=== PATIENT | female | born 1945 | race Caucasian/White ===

== ENCOUNTER 2016-11-08 11:29 | Outpatient (CLI) ==
[2016-04-26 08:44] VITALS: BMI 36.6
[2016-11-08 13:51] LABS: BASOPHILS # (AUTO) 0.1 K/uL (0-0.2); BASOPHILS % (AUTO) 1.4 % (0.0-3.0); EOSINOPHILS # (AUTO) 0.1 K/ul (0.0-0.7); EOSINOPHILS % (AUTO) 3.8 % (0.0-7.0); HEMATOCRIT 36.1 % (37.0-47.0); HEMOGLOBIN 11.6 g/dl (12.0-16.0); IMMATURE GRANULOCYTE % (AUTO) 0.3 % (0.0-5.0); LYMPHOCYTES # (AUTO) 1.1 K/uL (0.60-3.4); LYMPHOCYTES % (AUTO) 29.1 (10.0-50.0); MEAN CORPUSCULAR HEMOGLOBIN 27.8 pg (27.0-31.0); MEAN CORPUSCULAR HGB CONC 32.1 (31.8-35.4); MEAN CORPUSCULAR VOLUME 86.6 fl (81.0-99.0); MONOCYTES # (AUTO) 0.5 K/uL (0.4-2.0); MONOCYTES % (AUTO) 12.2 (0-10); NEUTROPHILS % (AUTO) 53.2; PLATELET COUNT 200 10^3/uL (140-440); RED BLOOD COUNT 4.17 10^6/ul (4.20-5.40); WHITE BLOOD COUNT 3.68 K/ul (4.6-10.2)
[2016-11-08 14:23] LABS: ALBUMIN 3.8 g/dL (3.4-5.0); ALBUMIN/GLOBULIN RATIO 0.9; ANION GAP 16.5; BILIRUBIN,TOTAL 0.56 mg/dL (0.00-1.20); BUN/CREATININE RATIO 27.77; CALCIUM 10.5 mg/dL (8.2-10.2); CHOL/HDL RATIO 3.3 (4.5-5.5); CREATININE 1.8 mg/dL (0.60-1.30); POTASSIUM 4.5 mmol/L (3.5-5.10)
== END 2016-11-08 11:30 | disposition home or self-care (01) ==
LOC: LAB 11:29
PROVIDERS: ATTEND Emergency Medicine
DX: E11.9 Type 2 diabetes mellitus without complications (principal); G45.9 Transient cerebral ischemic attack, unspecified; I48.1 Persistent atrial fibrillation
CPT/HCPCS: 36415; 80053; 80061; 83036; 84443; 85025

== ENCOUNTER 2017-02-14 08:20 | Outpatient (CLI) | payer OTHER ==
[2016-04-26 08:44] VITALS: BMI 36.6
[2017-02-14 08:36] LABS: BASOPHILS % (AUTO) 0.9 % (0.0-3.0); EOSINOPHILS # (AUTO) 0.1 K/ul (0.0-0.7); EOSINOPHILS % (AUTO) 2.7 % (0.0-7.0); HEMATOCRIT 34.2 % (37.0-47.0); HEMOGLOBIN 11.3 g/dl (12.0-16.0); IMMATURE GRANULOCYTE % (AUTO) 0.2 % (0.0-5.0); LYMPHOCYTES # (AUTO) 1.2 K/uL (0.60-3.4); LYMPHOCYTES % (AUTO) 27.5 (10.0-50.0); MEAN CORPUSCULAR HEMOGLOBIN 27.8 pg (27.0-31.0); MONOCYTES # (AUTO) 0.4 K/uL (0.4-2.0); MONOCYTES % (AUTO) 9.8 (0-10); NEUTROPHILS # (AUTO) 2.6 K/ul (2.0-6.9); NEUTROPHILS % (AUTO) 58.9; PLATELET COUNT 174 10^3/uL (140-440); RED BLOOD COUNT 4.07 10^6/ul (4.20-5.40); WHITE BLOOD COUNT 4.48 K/ul (4.6-10.2)
[2017-02-14 09:21] LABS: CHOL/HDL RATIO 3.8 (4.5-5.5)
== END 2017-02-14 08:21 | disposition home or self-care (01) ==
LOC: LAB 08:20
PROVIDERS: ATTEND Emergency Medicine
DX: E11.9 Type 2 diabetes mellitus without complications (principal)
CPT/HCPCS: 36415; 80061; 83036; 84443; 85025

== ENCOUNTER 2017-03-01 08:46 | Outpatient (CLI) ==
[2016-04-26 08:44] VITALS: BMI 36.6
--- NOTE | 2017-03-02 10:15 | MAMMO ---
EXAM: Digital screening mammogram HISTORY: Screening COMPARISON: 02/26/2016 FINDINGS: Digital MLO and CC views of the right and left breast were performed. There are scatter ed fibroglandular densities. Stable benign left breast lymph node. There is no evidence for new mas s, asymmetry, distortion, or suspicious calcifications in either breast. IMPRESSION: 1. No evidence of malignancy in the right or left breast. 2. Annual screening mammogram is recommended in one year. BIRADS category 2, benign
== END 2017-03-01 08:47 | disposition home or self-care (01) ==
LOC: RAD 08:46
PROVIDERS: ATTEND Emergency Medicine
DX: Z12.31 Encounter for screening mammogram for malignant neoplasm of breast (principal)

== ENCOUNTER 2017-04-13 08:17 | Outpatient (CLI) ==
[2016-04-26 08:44] VITALS: BMI 36.6
[2017-04-13 09:12] LABS: ALBUMIN 3.3 g/dL (3.4-5.0); ALBUMIN/GLOBULIN RATIO 0.87; ANION GAP 13.6; BILIRUBIN,TOTAL 0.35 mg/dL (0.00-1.20); BUN/CREATININE RATIO 23.31; CHOL/HDL RATIO 4.1 (4.5-5.5); CREATININE 1.63 mg/dL (0.60-1.30); POTASSIUM 4.6 mmol/L (3.5-5.10); TOTAL PROTEIN 7.1 g/dL (5.8-8.1)
== END 2017-04-13 08:18 | disposition home or self-care (01) ==
LOC: LAB 08:17
PROVIDERS: ATTEND Emergency Medicine
DX: E11.9 Type 2 diabetes mellitus without complications (principal)
CPT/HCPCS: 36415; 80053; 80061; 83036; 84443

== ENCOUNTER 2017-04-21 09:54 | Outpatient (CLI) ==
[2016-04-26 08:44] VITALS: BMI 36.6
--- NOTE | 2017-04-21 10:35 | CT ---
EXAM: CT head without contrast. HISTORY: Left-sided facial numbness radiating to the neck and arm. Previous cerebrovascular accide nt. COMPARISON: 06/26/2015. TECHNIQUE: Multiple axial images of the brain were obtained from the skull base through the vertex without intravenous contrast. FINDINGS: There is no intracranial hemorrhage or extraaxial collection. The naranjo-white differentia tion is maintained without evidence for acute large vascular territory infarction. There are areas of periventricular and subcortical white matter low attenuation including in the left basal ganglia and bilateral cerebellar hemispheres. The cortical sulci and cerebral ventricles are symmetrically enlarged. The basal cisterns are well visualized. There is no hydrocephalus, mass effect, or midli ne shift. The paranasal sinuses and mastoid air cells are clear. The calvarium is intact. Atheros clerotic calcifications are present. Since the prior study, there has been no significant interval c jono. IMPRESSION: 1. No acute intracranial abnormality. 2. Chronic small vessel ischemic changes and atrophy.
--- NOTE | 2017-04-21 11:14 | US ---
Exam: Heaton-scale and color Doppler ultrasonographic evaluation of the carotid arteries. Comparison: 06/27/2015. Reason for exam: Dizziness and giddiness FINDINGS: There is a moderate amount of heterogeneous appearing plaque in the proximal right finance intern al carotid artery at the level of the bulb. The right external carotid artery measures 80 cm/sec. The right common carotid artery measures 50 / 10 cm/sec. The right internal carotid artery peak systolic velocity measures 80 cm/sec. The right internal carotid artery/CCA PSV ratio was 1.4. The right internal carotid artery end-diastolic velocity measures 30 cm/sec. There is normal right antegrade vertebral artery flow. There is a moderate amount of heterogeneous and dense plaque seen in the proximal left internal more tid artery. The left external carotid artery measures 70 cm/sec. The left common carotid artery measures 70 / 10 cm/sec. The left internal carotid artery peak systolic velocity measures 90 cm/sec. The left internal carotid artery/CCA PSV ratio measures 1.3. The left internal carotid artery end-diastolic velocity measures 20 cm/sec. There is normal antegrade left vertebral artery flow. There is incidental note of a 3 cm right thyroid nodule seen on the examination. Impression: 1. No ultrasonographic evidence of significant stenosis is seen in either the right or left interna l carotid arteries. 2. Unexpected finding. Incidental note of a right thyroid nodule. Recommend ultrasonographic eval uation of the thyroid gland for further characterization.
== END 2017-04-21 09:55 | disposition home or self-care (01) ==
LOC: RAD 09:54
PROVIDERS: ATTEND Emergency Medicine
DX: R42 Dizziness and giddiness (principal); R20.0 Anesthesia of skin

== ENCOUNTER 2017-08-11 13:07 | Outpatient (CLI) ==
[2016-04-26 08:44] VITALS: BMI 36.6
[2017-08-11 13:57] LABS: BASOPHILS % (AUTO) 0.9 % (0.0-3.0); EOSINOPHILS # (AUTO) 0.1 K/ul (0.0-0.7); EOSINOPHILS % (AUTO) 2.2 % (0.0-7.0); HEMATOCRIT 33.8 % (37.0-47.0); IMMATURE GRANULOCYTE % (AUTO) 0.2 % (0.0-5.0); LYMPHOCYTES # (AUTO) 0.9 K/uL (0.60-3.4); LYMPHOCYTES % (AUTO) 20.4 (10.0-50.0); MEAN CORPUSCULAR HEMOGLOBIN 28.1 pg (27.0-31.0); MEAN CORPUSCULAR HGB CONC 32.5 (31.8-35.4); MEAN CORPUSCULAR VOLUME 86.4 fl (81.0-99.0); MONOCYTES # (AUTO) 0.4 K/uL (0.4-2.0); MONOCYTES % (AUTO) 9.4 (0-10); NEUTROPHILS % (AUTO) 66.9; PLATELET COUNT 180 10^3/uL (140-440); RED BLOOD COUNT 3.91 10^6/ul (4.20-5.40); WHITE BLOOD COUNT 4.47 K/ul (4.6-10.2)
[2017-08-11 14:27] LABS: ALBUMIN 3.5 g/dL (3.4-5.0); ALBUMIN/GLOBULIN RATIO 0.92; ANION GAP 14.5; BILIRUBIN,TOTAL 0.39 mg/dL (0.00-1.20); BUN/CREATININE RATIO 31.08; CALCIUM 10.7 mg/dL (8.2-10.2); CHOL/HDL RATIO 3.1 (4.5-5.5); CREATININE 1.48 mg/dL (0.60-1.30); POTASSIUM 4.5 mmol/L (3.5-5.10); TOTAL PROTEIN 7.3 g/dL (5.8-8.1)
== END 2017-08-11 13:08 | disposition home or self-care (01) ==
LOC: LAB 13:07
PROVIDERS: ATTEND Emergency Medicine
DX: E11.9 Type 2 diabetes mellitus without complications (principal); R11.0 Nausea; F20.9 Schizophrenia, unspecified
CPT/HCPCS: 36415; 80053; 80061; 83036; 84443; 85025

== ENCOUNTER → 2017-10-05 | Outpatient (RCR) | payer OTHER ==
[2016-04-26 08:44] VITALS: BMI 36.6
== END ==
LOC: NEWBEG 09-23 10:39 → EDSTATUS 09-23 10:41 → NEWBEG 09-26 10:00
PROVIDERS: ATTEND Psychiatry & Neurology Psychiatry
DX: F31.75 Bipolar disorder, in partial remission, most recent episode depressed (principal)
CPT/HCPCS: 90792; 90832; 90853

== ENCOUNTER → 2017-11-02 | Outpatient (RCR) | payer OTHER ==
[2017-04-21 09:58] VITALS: BMI 36.6
== END ==
LOC: NEWBEG 10-06 08:06
PROVIDERS: ATTEND Psychiatry & Neurology Psychiatry
DX: F31.75 Bipolar disorder, in partial remission, most recent episode depressed (principal)
CPT/HCPCS: 90853; 99213

== ENCOUNTER 2017-11-14 10:00 | Outpatient (RCR) ==
[2017-04-21 09:58] VITALS: BMI 36.6
== END 2017-12-03 ==
LOC: NEWBEG 10:00
PROVIDERS: ATTEND Psychiatry & Neurology Psychiatry
DX: F31.75 Bipolar disorder, in partial remission, most recent episode depressed (principal)
CPT/HCPCS: 90853

== ENCOUNTER 2017-11-15 10:52 | Inpatient (IN) | payer OTHER ==
[2017-11-15] MEDS ORDERED: SODIUM CHLORIDE 1,000 ML IV STA (11:11)
--- NOTE | 2017-11-15 11:17 | ED.PDOC ---
General ED Provider: Dr. KEITH CAMACHO Chief Complaint: Weakness Stated Complaint: CC: Weakness. HPI: Patient presents for Evaluation of generalized weakness with associated numbness in kimberly upper extremity-Hand. She was downstairs in the laundry room with her worker who was doing pts laundry earlier today when she felt sudden onset weakness with numbness to left hand--" I couldn't make it upstairs to my apt."- States she has not felt well -non- specific past 3 days. She then developed numbness to left face plus developed nausea and vomiting X 1 episode. Upon arrival she was alert capable of recalling the event. Triage nurse documentt weakness to left installer molding and trim noted. Her speech wsa clear. Upon arrival and review of her symptoms ordered stroke protocol and sent for Emergent CT Head. Time Seen by Physician: 11:20 Mode of Arrival: Stretcher Information Source: Patient, EMT Primary Care Provider: JUAN MANUEL SYKES Referred to ED by: PCP (self by EMS), Other Nursing and Triage Documentation Reviewed and Agree: Yes (11:15 AM) Reviewed sepsis parameters & appropriate labs ordered?: Yes System Inflammatory Response Syndrome: Not Applicable Sepsis Protocol: For patient's 13 years and over: Temp is 96.8 and below OR 101 and greater Pulse >90 BPM Resp >20/minute Acutely Altered Mental Status Are patient's symptoms suggestive of a new infection, such as: -Pneumonia -Skin, Soft Tissue -Endocarditis -UTI -Bone, Joint Infection -Implantable Device -Acute Abdominal Infection -Wound Infection -Meningitis -Blood Stream Catheter Infection -Unknown System Inflammatory Response Syndrome: Not Applicable Neurological Complaint Exam - Weakness Complaint/Exam Onset: Sudden Duration: 3 hrs Symptoms Are: Still present Timing: Constant Episodes Lasting: Hours Initial Severity: Moderate Current Severity: Mild Character: Reports: Lightheaded, Weak Aggravating: Reports: None Alleviating: Reports: None Associated Signs and Symptoms: Reports: Nausea, Vomiting, Unsteady gait, Loss of balance Related History: Similar episode Cardiac Risk Factors: Reports: Hypertension, Diabetes CVA Risk Factors: Reports: Diabetes, Hypertension Related Surgical History: Reports: None JVD Present: No Carotid Bruit Present: No Rectal Heme Positive: No Nystagmus Present: No Gag Reflex Present: Yes Meningeal Signs Positive: No Focal Weakness: Present: LUE, LLE Focal Sensory Loss: Present: None Gait: Unable Differential Diagnoses: Other (TIA) Quality Indicator For Non-Traumatic Chest Pain/Syncope: EKG Performed Review of Systems - Review Of Systems Constitutional: Reports: Weakness, Loss of appetite. Denies: Sweats Eyes: Denies: Blindness, Blurred vision, Vision change Ears, Nose, Mouth, Throat: Reports: No symptoms Respiratory: Reports: No symptoms Cardiac: Reports: No symptoms GI: Reports: No symptoms : Reports: No symptoms Musculoskeletal: Reports: No symptoms Skin: Reports: No symptoms Neurological: Reports: Headache, Numbness, Tingling, Weakness (Lt UE/LE) Endocrine: Reports: No symptoms Hematologic/Lymphatic: Reports: No symptoms All Other Systems: Reviewed and Negative Past Medical History - Past Medical History Previously Healthy: No Endocrine: Reports: DM 1, Dyslipidemia Cardiovascular: Reports: CAD, NM, Hypertension, A-Fib, Other Respiratory: Reports: None Hematological: Reports: None Gastrointestinal: Reports: PUD, Liver Genitourinary: Reports: None Neuro/Psych: Reports: TIA, CVA, Anxiety, Depression, Bipolar Disorder Musculoskeletal: Reports: Arthritis Cancer: Reports: Other (LIVER) Last Menstrual Period: hysterectomy Other Pertinent Past Medical History: cabg ulcer hyst - Surgical History General Surgical History: Reports: Hysterectomy, CABG, Other (Atrial flutter/ fib paroxysmal. Prosthetic pig valve, aortic. CA of the liver, 90% removed. ) - Family History Family History: Reports: Unknown - Social History Smoking Status: Former smoker Hx Substance Use: No Alcohol Screening: None Physical Exam - Physical Exam Appearance: Ill-appearing Ill-appearing: Mild Pain Distress: None Eyes: DUKE, EOMI, Conjunctiva clear ENT: Ears normal, Nose normal, Oropharynx normal Neck: Supple Respiratory: Airway patent, Breath sounds clear, Breath sounds equal Cardiovascular: RRR, Pulses normal, No rub, No murmur GI/: Soft, Nontender (Healed scar RUQ from prev hepatic surgery and partial Hepatic resection for Hepatoma), No masses, Bowel sounds normal Musculoskeletal: Normal strength, ROM intact Skin: Warm, Dry Neurological: Sensation intact, Alert, Oriented Psychiatric: Affect appropriate, Mood appropriate Re-Evaluation - Re-Evaluation Time of Re-Evaluation: 11:15 Status: Improved Vital Signs Stable: Yes Pain Level: None-feeling better with resolution of facial numbness and LUE?Hand paresth Appearance: NAD Lungs: Clear Skin: Warm and Dry Neuro: Alert and Oriented X3 CV: RRR Additional Comments: Discussesd case with her son Keith who is present Physician Notification - Case Discussed Physician Notified: Dr Liu Time of Notification: 11:30 (Agrees to accept admission for observation ) Critical Care Note - Critical Care Note Total Time (mins): 30 Course - Course Hematology/Chemistry: 11/15/17 11:33 11/15/17 11:33 Orders, Labs, Meds: Lab Review 11/15/17 11/15/17 11/15/17 11:33 11:33 11:33 WBC 7.36 RBC 4.32 Hgb 12.3 Hct 36.0 L MCV 83.3 MCH 28.5 MCHC 34.2 RDW Coeff of Silvana 13.7 Plt Count 198 Immature Gran % (Auto) 0.4 Neut % (Auto) 76.9 Lymph % (Auto) 13.5 Stanley % (Auto) 7.2 Eos % (Auto) 1.2 Baso % (Auto) 0.8 Immature Gran # (Auto) 0.0 Neut # (Auto) 5.7 Lymph # (Auto) 1.0 Stanley # (Auto) 0.5 Eos # (Auto) 0.1 Baso # (Auto) 0.1 PT 11.6 H INR 1.14 APTT 30.8 Sodium 134 L Potassium 4.8 Chloride 102 Carbon Dioxide 21 L Anion Gap 15.8 BUN 37 H Creatinine 1.54 H Estimated GFR (MDRD) 33.00 BUN/Creatinine Ratio 24.02 Glucose 358 H Calcium 10.3 H Total Bilirubin 0.6 AST 11 L ALT 14 Alkaline Phosphatase 87 Troponin I Total Protein 7.7 Albumin 3.5 Globulin 4.2 Albumin/Globulin Ratio 0.83 11/15/17 11:33 WBC RBC Hgb Hct MCV MCH MCHC RDW Coeff of Silvana Plt Count Immature Gran % (Auto) Neut % (Auto) Lymph % (Auto) Stanley % (Auto) Eos % (Auto) Baso % (Auto) Immature Gran # (Auto) Neut # (Auto) Lymph # (Auto) Stanley # (Auto) Eos # (Auto) Baso # (Auto) PT INR APTT Sodium Potassium Chloride Carbon Dioxide Anion Gap BUN Creatinine Estimated GFR (MDRD) BUN/Creatinine Ratio Glucose Calcium Total Bilirubin AST ALT Alkaline Phosphatase Troponin I 0.0320 Total Protein Albumin Globulin Albumin/Globulin Ratio Orders Category Date Time Status EKG-(ED ONLY) Stat CARDIO 11/15/17 11:11 Completed EKG-(ED ONLY) Stat CARDIO 11/15/17 13:00 Ordered ED ACCUCHECK ASSESSMENT .ONCE EMERGENCY 11/15/17 11:11 Active ED APPLY O2 .ONCE EMERGENCY 11/15/17 11:11 Active CBC W/ AUTO DIFF Stat LAB 11/15/17 11:33 Completed COMPREHENSIVE METABOLIC PANEL Stat LAB 11/15/17 11:33 Completed PARTIAL THROMBOPLASTIN TIME Stat LAB 11/15/17 11:33 Completed PT WITH INR Stat LAB 11/15/17 11:33 Completed TROPONIN I Stat LAB 11/15/17 11:33 Completed 0.9 % Sodium Chloride [Saline Flush] MEDS 11/15/17 11:11 Active 1 syr IVF PRN PRN Sodium Chloride 0.9% [Sodium Chloride] 1,000 ml MEDS 11/15/17 11:11 Active IV 30 mls/hr CT HEAD W/O CONTRAST Stat RADS 11/15/17 11:09 Completed Medications Generic Name Dose Route Start Last Admin Trade Name Freq PRN Reason Stop Dose Admin Sodium Chloride 1,000 mls @ 30 mls/hr 11/15/17 11:11 11/15/17 11:46 Sodium Chloride IV 11/16/17 20:30 Not Given .[id number] STA Sodium Chloride 1 syr 11/15/17 11:11 11/15/17 10:55 Saline Flush IVF 1 syr PRN PRN Administration To flush IV Vital Signs: Temp Pulse Resp BP Pulse Ox 11/15/17 10:53 97.1 F L 57 L 16 169/74 H 100 Departure - Departure Time of Disposition: 13:00 Disposition: ADMITTED INPATIENT Discharge Problem: TIA (transient ischemic attack), Diabetes type 2, uncontrolled, Bradycardia Condition: Good Pt referred to PMD for follow-up: Yes (Dr Liu) IP verified?: No Allergies/Adverse Reactions: Allergies influenza virus vaccine, specific [Influenza Virus Vacc,Specific] Adverse Reaction (Verified 11/15/17 11:08) Sulfa (Sulfonamide Antibiotics) Adverse Reaction (Verified 11/15/17 11:08) Home Medications: Ambulatory Orders Quetiapine Fumarate [Seroquel Xr] 150 mg PO BEDTIME 01/09/14 Rivaroxaban [Xarelto] 15 mg PO d 11/10/16 Urich-3/Dha/Epa/Fish Oil [Fish Oil Dr 500 Mg Softgel] 1,000 mg PO d 02/15/17 Ondansetron HCl [Zofran] 4 mg PO BID PRN 08/12/17 Disposition Discussed With: Patient, Family
--- NOTE | 2017-11-15 11:43 | CT ---
EXAM: CT BRAIN HISTORY: Clinical concern for stroke TECHNIQUE: CT brain without intravenous contrast. 5-mm axial sections with Reformations. COMPARISON: 04/21/2017 FINDINGS: Generalized atrophy. There is moderately severe periventricular and deep white matter low attenuation which although nonspecific is suggestive of chronic microvascular ischemic change. These findings a re stable. Brain otherwise is unremarkable without evidence of hemorrhage or large vessel distribution recent is chemic infarction. There is no suggestion of acute hydrocephalus or subdural fluid collection. No m ass or mass effect. Cranium is within normal limits. Mastoid processes are aerated. The visualized paranasal sinuses a re clear. IMPRESSION: Complex background of chronic and involutional brain parenchymal changes with no definit e new or acute infarction. No intracranial hemorrhage. MRI is more sensitive regarding acute ischemia and infarction if indicated clinically.
[2017-11-15] MEDS ORDERED: FISH OIL PO SCH (14:45)
[2017-11-15] MEDS ORDERED: DHA PO SCH (14:45)
[2017-11-15] MEDS ORDERED: EPA PO SCH (14:45)
[2017-11-15] MEDS ORDERED: OMEGA PO SCH (14:45)
[2017-11-15] MEDS ORDERED: [UNRECOGNIZED DRUG - OTHER] PO SCH (14:45)
[2017-11-15] MEDS ORDERED: ZOFRAN TAB PO PRN (15:00)
--- NOTE | 2017-11-15 15:28 | US ---
EXAM: Ultrasound bilateral carotid duplex. HISTORY: Left-sided weakness. COMPARISON: 04/21/2017. TECHNIQUE: Multiple naranjo scale and color Doppler images were obtained. FINDINGS: Please note that estimates of internal carotid artery stenoses are based upon NASCET crite anastasia. Right carotid: Calcified plaquing present without 50% or greater stenosis. Peak systolic velocity m easurement in the right internal carotid artery is 0.7 meters per second. Right internal to common c arotid artery peak systolic velocity ratio measures 1.4. End diastolic velocity measurement in the r ight internal carotid artery is 0.3 meters per second. Flow in the right vertebral artery is antegra de. Left carotid: Calcified plaquing present which is greater than on the contralateral side, although n o 50% or greater stenosis is detected. Shadowing in the proximal internal carotid artery does somewh at limit evaluation. Peak systolic velocity measurement in the left internal carotid artery is 0.6 m eters per second. Left internal to common carotid artery peak systolic velocity ratio measures 1.1. End diastolic velocity measurement in the left internal carotid artery measures 0.2 meters per secon d. Flow in the left vertebral artery is antegrade. Since the prior study, there has been no significant interval change. IMPRESSION: 1. Mild, less than 50%, right and left internal carotid artery stenoses. 2. Antegrade flow in both vertebral arteries.
--- NOTE | 2017-11-15 16:30 | MRI ---
EXAM: MRI brain without IV contrast. DATE: 11/15/2017. HISTORY: Weakness. TECHNIQUE: Sagittal T1W, axial T2W, axial FLAIR, axial T1W, axial DWI, and coronal T2W GRE sequences of the brain were obtained using 1.2 Sarah Beth magnet. No IV contrast. COMPARISON: CT head 11/15/2017. MRI brain 27 June 2015. FINDINGS: A cavum septum pellucidum and cavum vergae normal variation is observed. The ventricles, cisterns, and sulci are commensurately enlarged due to involutional change. No midline shift, hernia tion or abnormal extra-axial fluid collection is apparent. A 5 x 4 x 7 mm DWI bright focus in the po sterior right cerebellum likely represents an acute infarct. Multiple T2W bright, T1W/FLAIR dark giovanny ear foci in bilateral cerebellar hemispheres are likely old infarcts. No acute hemorrhage or neoplas m is identified. Small, confluent rim of T2W/FLAIR hyperintensity is observed in the white matter ab utting each lateral ventricle. White matter T2W/FLAIR hyperintensity adjacent to the anterior horn o f each lateral ventricle is increased compared to the June 2015 study. An increased number of 2-1 2 mm diameter, T2W/FLAIR bright foci scattered within the roach radiata, centrum semiovale and subco rtical white matter are demonstrated compared to 2014. Multiple T2W bright, FLAIR peripherally brigh t, centrally dark, T1W dark foci scattered within bilateral roach radiata/centrum semiovale / subcor tical white matter and bilateral basal ganglia and also increased in number. The naranjo - white matter differentiation is normal. Several T2W bright, T1W dark foci within the cerebral peduncles likely r epresent prominent Virchow-Abe spaces. The 7th/8th cranial nerve complexes, cerebellopontine angle s, and visible cervical spinal cord are normal. There is no cerebellar tonsillar ectopia. The pitui tary gland is small in size and flattened against the floor of the sella, with CSF filling the majori ty of the pituitary fossa. Corpus callosum is normal in size and configuration. Right vertebral art av is dominant. Left vertebral artery is narrow in diameter and has abnormal flow signal. Basilar artery is borderline narrow. Flow voids are present in the major intracranial arteries and in the du ral venous sinuses. No aneurysm, AVM or dural venous sinus thrombosis is apparent. Bilateral border line orbital proptosis is noted. No other orbit abnormality is identified. The mastoid air cells ar e unremarkable. There is no acute sinusitis. No neck mass or lymphadenopathy is detected. No lucy rial neoplasm or acute fracture is evident. IMPRESSIONS: 1. Acute, nonhemorrhagic infarct of the right cerebellum. 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 No midline shift or herniation. Borderline basilar artery diameter without distinct stenosis. L eft basilar artery diminutive size and signal abnormality - possibly due to chronic occlusion or slow flowing blood. 2. No acute hemorrhage, neoplasm or hydrocephalus. 3. Mild/moderate cerebral and mild brainstem white matter disease. Consider chronic hypertensive en cephalopathy with associated infarcts vs small vessel disease with infarcts. Demyelinating disease ( with cystic plaques), metabolic disorder, vasculitis, are sequela of infection are less likely consid erations. 4. Moderate cerebral and mild cerebellar atrophy. 5. Small pituitary gland - nearly empty sella. 6. Borderline bilateral orbital proptosis. Critical result: Report called to Dr. Liu, at 1624 hours, 11/15/2017.
[2017-11-15 16:55] VITALS: BMI 39.6
[2017-11-15] MEDS ORDERED: CARAFATE PO SCH (17:00)
[2017-11-15] MEDS: CARAFATE PO SCH ×2 (18:22→20:36)
[2017-11-15] MEDS: COREG PO SCH (18:22)
[2017-11-15] MEDS: SODIUM CHLORIDE 1,000 ML IV SCH (18:23)
[2017-11-15] MEDS: XARELTO PO SCH (18:24)
[2017-11-15] MEDS: ZESTRIL PO SCH (20:36)
[2017-11-15] MEDS: CATAPRES PO SCH (20:36)
[2017-11-15] MEDS: QUETIAPINE FUMARATE 150 MG PO SCH (20:36)
[2017-11-15] MEDS: HUMULIN R SUBCUT PRN (20:38)
[2017-11-15] MEDS: LANTUS SUBCUT SCH (20:41)
[2017-11-15] MEDS ORDERED: NON-FORMULARY MEDICATION (Clonidine Hcl [Clonidine Hcl] 0.2 MG) PO SCH (21:00)
[2017-11-16] MEDS: PROTONIX PO SCH (06:07)
[2017-11-16] MEDS: CARAFATE PO SCH ×4 (06:07→21:01)
[2017-11-16] MEDS: HUMULIN R SUBCUT PRN ×3 (06:08→18:32)
[2017-11-16] MEDS ORDERED: LASIX TAB PO SCH (06:30)
[2017-11-16] MEDS ORDERED: NON-FORMULARY MEDICATION (Amlodipine Besylate [Amlodipine Besylate] 10 MG) PO SCH (09:00)
[2017-11-16] MEDS ORDERED: NON-FORMULARY MEDICATION (Potassium Chloride [Klor-Con 10] 10 MEQ) PO SCH (09:00)
[2017-11-16] MEDS ORDERED: NON-FORMULARY MEDICATION (Atorvastatin Calcium [Lipitor] 80 MG) PO SCH (09:00)
[2017-11-16] MEDS ORDERED: NON-FORMULARY MEDICATION (Rivaroxaban [Xarelto] 15 MG) PO SCH (09:00)
[2017-11-16] MEDS: OMEGA-3 FISH OIL PO SCH (09:42)
[2017-11-16] MEDS: LIPITOR PO SCH (09:42)
[2017-11-16] MEDS: NORVASC PO SCH (09:42)
[2017-11-16] MEDS: CATAPRES PO SCH ×2 (09:42→21:01)
[2017-11-16] MEDS: ZESTRIL PO SCH ×2 (09:43→21:01)
[2017-11-16] MEDS: COREG PO SCH ×2 (09:43→17:24)
[2017-11-16] MEDS: MICRO-K CAP PO SCH (09:43)
[2017-11-16] MEDS: NON-FORMULARY MEDICATION (Canagliflozin [Invokana] 100 MG) PO SCH (09:57)
--- NOTE | 2017-11-16 12:47 | DI ---
EXAM: CHEST FRONTAL AND LATERAL VIEWS HISTORY: Shortness of breath. COMPARISON: 02/27/2016 FINDINGS: Heart size is within normal limits. Hardware of the sternum is noted. No acute bony findi ng. There is at least mild atherosclerotic disease. Ill-defined nodular density in the mid left lung measuring 8.9 mm. No vascular congestion or acute infiltrate. Trace right pleural effusion. No co nsolidations or pneumothorax. No acute bony finding. IMPRESSION: 1. Trace right pleural effusion. No definite consolidated pneumonia or vascular congestion. 2. There is an 8.9 mm nodular density over the mid left lung not seen on the lateral projection with any certainty. This may have been present on prior radiographs although not clearly seen. Prior CT shows multiple pleural plaques for which this density could be explained. Consider follow-up radiog imani to assure stability.
--- NOTE | 2017-11-16 16:29 | RS.PTINEVL ---
Subjective - Patient information Date of Evaluation: 11/16/17 Date of Arrival on Unit: 11/15/17 Admitted From:: Home Diagnosis: acute CVA Usual Living Arrangement: Alone Living Arrangement Comments: lives alone, has Help at Home 5 days a week to assist with cleaning, cooking etc. pt states she did her own shower. Home Environment: Apartment Medical History: Hypertension, CVA/TIA, Diabetes, Cancer Medical History Comments:: CT, CAD, bipolar disorder, anxiety, depression, CA of liver LATEX ALLERGY?: No Surgical History: Hysterectomy, CABG Medications: see chart Subjective Information/ Patient Comments:: pt states " I am doing well, God healed me." pt states has been up and done her own shower today. - Level of function Prior to this admission, the patient could do the following:: Independent Ambulation Current Level of Function: Independent Current Equipment Used at Home: GLUCOMETER, Interventions - Objective Patient Orientation: Person, Place, Time, Situation Current Interventions: IV's, Telemetry Range of Motion - ROM Right Upper Extremity AROM: WFL's Left Upper Extremity AROM: WFL's Right Lower Extremity AROM: WFL's Left Lower Extremity AROM: WFL's Muscle Strength - Muscle Strength Right Upper Extremity Strength: Mild Weakness (grossly 4+/5) Left Upper Extremity Strength: Mild Weakness (grossly 4+/5) Right Lower Extremity Strength: Mild Weakness (hip flex 4/5, knee flex/ext 4+/5 , ankle Df/PF 4+/5) Left Lower Extremity Strength: Mild Weakness (hip flex 4/5, knee flex/ext 4+/5, ankle Df/PF 4+/5) Sensation - Sensation Right Upper Extremity Sensation: Intact/Normal Left Upper Extremity Sensation: Intact/Normal Right Lower Extremity Sensation: Intact/Normal Left Lower Extremity Sensation: Intact/Normal Palpation Palpation Findings: None/Normal Balance - Sitting Balance and Reactions Static Sitting Balance: Normal Dynamic Sitting Balance: Normal Sitting Equilibrium Reactions: Within Normal Limits Left, Within Normal Limit Right Sitting Protective Reactions: Within Normal Limits Left, Within Normal Limit Right - Standing Balance and Reactions Static Standing Balance: Normal Dynamic Standing Balance: Good - Comments Balance Assessment Comments: pt with no LOB with challenges, pt able to reach across midline and away without LOB Functional Mobility - Bed Mobility Rolling R/L: Independent Scooting: Independent Supine to Sit: Independent Sit to Supine: Independent - Transfers Sit to Stand: Independent Stand to Sit: Independent - Safety Awareness Safety Awareness: Good ANA INDEX SCORE: n/a Ambulation - Ambulation Assistive Device Used: Gait belt Orthotic/Prosthetic Device: No Distance: 160ft Assistance needed with Ambulation: Independent, Supervision Gait Deviations: Short stride Ambulation Comments: pt amb with no LOB with decreased step length without AD occasionally touching hallway rail. Treatment time - Time with patient Total treatment time: 28 Patient Education - Education Patient Education: Home Safety Teaching Recipient: Patient Teaching Methods: Discussion Assessment - Assessment Problem List:: Weakness Further Therapy Indicated?: No Comments: Feel pt does not require skilled PT at this time due to amb with SBA to I with no LOB. Feel pt would benefit from nursing staff amb with pt in hallway due to having IV pole. Evaluation Complexity: HISTORY: Medium (CVA, HTN, DM, Bipolar), EXAM OF BODY SYSTEMS: Low, CLINICAL PRESENTATION: Low (stable), CLINICAL DECISION MAKING: Low Plan Frequency of Treatment: One time treatment Duration of Treatment: One Time Treatment Anticipated Discharge Destination: Home Has the Physician been added for Co-signature?: Yes
--- NOTE | 2017-11-16 17:04 | CT ---
EXAM: CT of the chest without contrast History: Left lung nodule. Comparison: Chest radiograph 11/16/2017, chest CT 07/12/2013 Technique: Multiplanar CT images through the thorax were obtained without the administration of IV c ontrast Findings: Heart size is within normal limits. Coronary calcifications and valvular calcifications of the heart. No pericardial effusion. No axillary lymphadenopathy. No pathologically enlarged media stinal or hilar lymph nodes. No change in the partially visualized right thyroid nodule. No consolidation. No pleural fluid and no pneumothorax. No suspicious lung masses or lung nodules. No change in the partially calcified and calcified bilateral pleural plaques. Within the visualized upper abdomen, postsurgical changes involving the left hepatic lobe. No acute osseous abnormalities. Sternotomy wires. Impression: 1. No acute intrathoracic process. 2. No suspicious lung masses or lung nodules. 3. 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
[2017-11-16] MEDS: XARELTO PO SCH (17:23)
[2017-11-16] MEDS: SODIUM CHLORIDE 1,000 ML IV SCH (18:31)
[2017-11-16] MEDS: QUETIAPINE FUMARATE 150 MG PO SCH (21:02)
[2017-11-16] MEDS: LANTUS SUBCUT SCH (21:03)
[2017-11-16] MEDS ORDERED: PEPTO-BISMOL CHEW PO STA (23:58)
[2017-11-17] MEDS: PROTONIX PO SCH (05:44)
[2017-11-17] MEDS: CARAFATE PO SCH ×4 (05:44→21:02)
[2017-11-17] MEDS: CATAPRES PO SCH ×2 (08:31→21:01)
[2017-11-17] MEDS: MICRO-K CAP PO SCH (08:31)
[2017-11-17] MEDS: NORVASC PO SCH (08:31)
[2017-11-17] MEDS: OMEGA-3 FISH OIL PO SCH (08:31)
[2017-11-17] MEDS: LIPITOR PO SCH (08:31)
[2017-11-17] MEDS: ZESTRIL PO SCH ×2 (08:31→21:02)
[2017-11-17] MEDS: COREG PO SCH ×2 (08:32→17:08)
[2017-11-17] MEDS: NON-FORMULARY MEDICATION (Canagliflozin [Invokana] 100 MG) PO SCH (08:32)
[2017-11-17] MEDS: SODIUM CHLORIDE 1,000 ML IV SCH ×2 (12:00→17:07)
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
[2017-11-17] MEDS: XARELTO PO SCH (17:08)
[2017-11-17] MEDS: QUETIAPINE FUMARATE 150 MG PO SCH (21:02)
[2017-11-17] MEDS: LANTUS SUBCUT SCH (21:02)
[2017-11-18 03:16] VITALS: BP 176/86; TEMP 98.3
[2017-11-18] MEDS ORDERED: CATAPRES PO STA (03:36)
--- NOTE | 2017-11-22 09:37 | DS ---
DATE OF SERVICE: 11/18/17 FINAL DIAGNOSIS: 1. 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 Atrial fibrillation on Xarelto but patient is noncompliant 4. Coronary artery disease 5. Congestive heart failure 6. Aortic valve replacement 7. Diabetes 8. Hypertension 9. Dyslipidemia 10.History of CVA 11.Osteoarthritis 12.DJD spine 13.Bipolar disorder 14.Depression 15.History of Hepatoma 16.Status post 90% of liver removed 17.Hysterectomy DISCHARGE INSTRUCTIONS: Discharge the patient home along with the patient's son. Followup in the [facility] within one week with me. Continue home medication. MEDICATIONS AT DISCHARGE: Amlodipine Invokana Coreg Clonidine Lasix Lantus 48 unit Lisinopril 40 Zofran PRN Protonix Potassium Seroquel Xarelto NEW PRESCRIPTIONS: Carafate [place]-3 Pepto-Bismol Lipitor DIET INSTRUCTIONS: Cardiac and Diabetic diet. ACTIVITY: As much as tolerated SMOKING: Former Smoker DISEASE SPECIFIC EDUCATION: Stroke and prevent History of recurrent strokes with atrial fibrillation and stopping of the Xarelto been discussed and verbalized understanding. HOSPITAL COURSE: Henna Ramsay is a 72 year old female with multiple medical problems with atrial fibrillation on Xarelto came to the emergency room with onset of the left upper extremity weakness and tingling of the face. She didn't know when it started exactly could not pinpoint as patient was feeling weak and tired and onset of symptoms for 3-[address] Young saw the patient in the emergency room. Left hand had urgent care lesser than the right hand, some facial numbness above the left side of the upper lip. CT was negative for stroke. During the patient' s presents in the emergency room the numbness on the lip is better. Strength in the left hand was getting better. At that time the patient was admitted to the hospital with the question of the CVA and further questioning the patient maybe missing a couple of doses of the Xarelto for which the patient has atrial fibrillation. Admitted to the hospital and continue all home medication, continue Accu-checks with coverage, lipid profile was done which showed the Triglyceride of 167, total cholesterol 195 and LDL is 115. BUN and creatinine was steady 136 and 1.45. Sugars 137. Blood pressure is hypotensive and down to 90 systolic. Medication Clonidine has to be held. Sinus bradycardia on the EKG. Clonidine was held and the heart rate came down to 85. Meanwhile Carotid ultrasound was negative for the occlusion. MRI of the brain showed the right cerebellar acute stroke. Chest x-ray negative. CT chest showed no acute intrathoracic process, no suspicious lung masses and no significant change. Up and about and walking did not have any problem and today early childhood education coordinator when she woke up she said that she saw the God in the room and was telling her to get out of the hospital. She called her son and son came to the hospital early in the morning around 2:00am. I was in the hospital at that time so I talked to them and the patient being discharged home. Advised to keep holding the Clonidine at this time as the patient's blood pressure been low and verbalized understanding. Secondary prevention been discussed and medication compliance been discussed in length with the patient's son. TIME SPENT: MORE THAN 55-60 MINUTES MTDD
== END 2017-11-18 03:55 | disposition home or self-care (01) | DRG 65 ==
LOC: ED 10:52 → MEDSURG B 14:31
PROVIDERS: ADMIT Emergency Medicine; ATTEND Emergency Medicine
DX: I63.8 Other cerebral infarction (principal); G45.9 Transient cerebral ischemic attack, unspecified; G81.94 Hemiplegia, unspecified affecting left nondominant side; I48.91 Unspecified atrial fibrillation; E11.65 Type 2 diabetes mellitus with hyperglycemia; R00.1 Bradycardia, unspecified; R53.1 Weakness; I25.10 Atherosclerotic heart disease of native coronary artery without angina pectoris; I50.9 Heart failure, unspecified; I10 Essential (primary) hypertension; E78.5 Hyperlipidemia, unspecified; F31.9 Bipolar disorder, unspecified; F32.9 Major depressive disorder, single episode, unspecified; M47.9 Spondylosis, unspecified; Z91.14 Patient's other noncompliance with medication regimen; M19.90 Unspecified osteoarthritis, unspecified site; Z79.01 Long term (current) use of anticoagulants; Z79.899 Other long term (current) drug therapy; Z95.2 Presence of prosthetic heart valve; Z90.89 Acquired absence of other organs
CPT/HCPCS: 36415; 80053; 80061; 81001; 82550; 82962; 84484; 85025; 85610; 85730; 87040; 93005; 93010; 99284

== ENCOUNTER 2017-11-23 09:49 | Outpatient (CLI) | END 2017-11-23 09:50 | disposition short-term general hospital (02) | LOC: AMBL 09:49 | PROVIDERS: ATTEND Family Medicine | DX: R53.1 Weakness (principal); R20.0 Anesthesia of skin; I48.91 Unspecified atrial fibrillation; E11.65 Type 2 diabetes mellitus with hyperglycemia ==

== ENCOUNTER 2017-11-24 17:36 | Inpatient (IN) ==
--- NOTE | 2017-11-24 18:01 | ED.PDOC ---
General ED Provider: Dr. LORRAINE CAMACHO Chief Complaint: Psychiatric Complaint Stated Complaint: Brought in by [place] [employer] due to altered mental status. Previoulsy on psych meds and stopped taking. Time Seen by Physician: 17:45 Mode of Arrival: Walk-In Information Source: Patient, Police Exam Limitations: Clinical condition, Altered mental status Primary Care Provider: JUAN MANUEL SYKES Referred to ED by: PCP Nursing and Triage Documentation Reviewed and Agree: Yes Reviewed sepsis parameters & appropriate labs ordered?: Yes System Inflammatory Response Syndrome: Not Applicable Sepsis Protocol: For patient's 13 years and over: Temp is 96.8 and below OR 101 and greater Pulse >90 BPM Resp >20/minute Acutely Altered Mental Status Are patient's symptoms suggestive of a new infection, such as: -Pneumonia -Skin, Soft Tissue -Endocarditis -UTI -Bone, Joint Infection -Implantable Device -Acute Abdominal Infection -Wound Infection -Meningitis -Blood Stream Catheter Infection -Unknown System Inflammatory Response Syndrome: Not Applicable Psychological Complaint Exam - Psychiatric Complaint/Exam Patient Complains Of: Present: Depression, Other (confused/schizophrenia) Symptoms Are: Still present Timing: Constant Initial Severity: Severe Current Severity: Moderate Character: Present: Manic, Depressed, Fearful, Anxious, Angry Aggravating: Reports: Recent stress, Medication noncompliance Associated Signs And Symptoms: Reports: Confused, Hallucinating, Paranoid behavior, Appetite change Related History: Denies: Suicidal thoughts, Suicidal plan, Suicidal gestures, Homicidal thoughts Completed Suicide Risk Factors: None Patient Accompanied By: Police Social Withdrawal Present: Yes Social Isolation Present: Yes Related Surgical History: Reports: None Patient Uncooperative For Exam: No Mood: Present: Paranoid, Manic, Agitated Appearance: Present: Clean Thought Process: Present: Illogical Insight: Present: Poor Memory: Intact Judgement: Impaired Danger To Others: No Differential Diagnoses: Schizophrenia Review of Systems - Review Of Systems Constitutional: Reports: No symptoms Eyes: Reports: No symptoms Ears, Nose, Mouth, Throat: Reports: No symptoms Respiratory: Reports: No symptoms Cardiac: Reports: No symptoms GI: Reports: No symptoms : Reports: No symptoms Musculoskeletal: Reports: No symptoms Skin: Reports: No symptoms Neurological: Reports: Emotional problems Endocrine: Reports: No symptoms Hematologic/Lymphatic: Reports: No symptoms All Other Systems: Reviewed and Negative Past Medical History - Past Medical History Previously Healthy: No Endocrine: Reports: DM 1, Dyslipidemia Cardiovascular: Reports: CAD, NM, Hypertension, A-Fib, Other Respiratory: Reports: None Hematological: Reports: None Gastrointestinal: Reports: PUD, Liver Genitourinary: Reports: None Neuro/Psych: Reports: TIA, CVA, Anxiety, Depression, Bipolar Disorder Musculoskeletal: Reports: Arthritis Cancer: Reports: Other (LIVER) Last Menstrual Period: n/a Other Pertinent Past Medical History: cabg ulcer hyst - Surgical History General Surgical History: Reports: Hysterectomy, CABG, Other (Atrial flutter/ fib paroxysmal. Prosthetic pig valve, aortic. CA of the liver, 90% removed. ) - Family History Family History: Reports: Unknown - Social History Smoking Status: Former smoker Hx Substance Use: No Alcohol Screening: None Physical Exam - Physical Exam Appearance: Obese Ill-appearing: Mild Pain Distress: None Eyes: DUKE, EOMI, Conjunctiva clear ENT: Ears normal, Nose normal, Oropharynx normal Respiratory: Airway patent, Breath sounds clear, Breath sounds equal, Respirations nonlabored Cardiovascular: RRR, Pulses normal, No rub, No murmur GI/: Soft, Nontender, No masses, Bowel sounds normal, No Organomegaly Musculoskeletal: Normal strength, ROM intact, No edema, No calf tenderness Skin: Warm, Dry, Normal color Neurological: Sensation intact, Motor intact, Reflexes intact, Cranial nerves intact, Alert, Oriented Psychiatric: Anxious (affect and interaction inappropriate) Critical Care Note - Critical Care Note Total Time (mins): 30 Course - Course Hematology/Chemistry: 11/24/17 18:49 11/24/17 18:49 Orders, Labs, Meds: Lab Review 11/24/17 11/24/17 11/24/17 17:30 17:30 18:19 WBC RBC Hgb Hct MCV MCH MCHC RDW Coeff of Silvana Plt Count Immature Gran % (Auto) Neut % (Auto) Lymph % (Auto) Deuel % (Auto) Eos % (Auto) Baso % (Auto) Immature Gran # (Auto) Neut # (Auto) Lymph # (Auto) Deuel # (Auto) Eos # (Auto) Baso # (Auto) Sodium Potassium Chloride Carbon Dioxide Anion Gap BUN Creatinine Estimated GFR (MDRD) BUN/Creatinine Ratio Glucose Calcium Total Bilirubin AST ALT Alkaline Phosphatase Total Protein Albumin Globulin Albumin/Globulin Ratio Urine Color Yellow Urine Clarity Clear Urine pH 5.0 Ur Specific Dorothy <=1.005 Urine Protein Negative Urine Glucose (UA) 2+ Urine Ketones Negative Urine Blood Negative Urine Nitrite Negative Urine Bilirubin Negative Urine Urobilinogen 0.2 Ur Leukocyte Esterase Negative Salicylate Level mg/dL < 5.0 Urine Opiates Screen Negative Ur Oxycodone Screen Negative Urine Methadone Screen Negative Ur Propoxyphene Screen Negative Acetaminophen < 3 L Ur Barbiturates Screen Negative U Tricyclic Antidepress Positive Ur Phencyclidine Scrn Negative Ur Amphetamine Screen Negative U Methamphetamines Scrn Negative U Benzodiazepines Scrn Negative Urine Cocaine Screen Negative U Cannabinoids Screen Negative 11/24/17 11/24/17 18:49 18:49 WBC 4.72 RBC 4.02 L Hgb 11.5 L Hct 34.2 L MCV 85.1 MCH 28.6 MCHC 33.6 RDW Coeff of Silvana 14.0 Plt Count 197 Immature Gran % (Auto) 0.2 Neut % (Auto) 61.2 Lymph % (Auto) 24.6 Deuel % (Auto) 11.2 H Eos % (Auto) 1.5 Baso % (Auto) 1.3 Immature Gran # (Auto) 0.0 Neut # (Auto) 2.9 Lymph # (Auto) 1.2 Deuel # (Auto) 0.5 Eos # (Auto) 0.1 Baso # (Auto) 0.1 Sodium 137 Potassium 5.1 Chloride 103 Carbon Dioxide 22 L Anion Gap 17.1 BUN 65 H* Creatinine 2.08 H Estimated GFR (MDRD) 23.00 BUN/Creatinine Ratio 31.25 Glucose 204 H Calcium 11.0 H Total Bilirubin 0.7 AST 15 ALT 16 Alkaline Phosphatase 74 Total Protein 8.2 H Albumin 3.9 Globulin 4.3 Albumin/Globulin Ratio 0.91 Urine Color Urine Clarity Urine pH Ur Specific Dorothy Urine Protein Urine Glucose (UA) Urine Ketones Urine Blood Urine Nitrite Urine Bilirubin Urine Urobilinogen Ur Leukocyte Esterase Salicylate Level mg/dL Urine Opiates Screen Ur Oxycodone Screen Urine Methadone Screen Ur Propoxyphene Screen Acetaminophen Ur Barbiturates Screen U Tricyclic Antidepress Ur Phencyclidine Scrn Ur Amphetamine Screen U Methamphetamines Scrn U Benzodiazepines Scrn Urine Cocaine Screen U Cannabinoids Screen Orders Category Date Time Status ACETAMINOPHEN Stat LAB 11/24/17 18:19 Completed CBC W/ AUTO DIFF Stat LAB 11/24/17 18:49 Completed CMP [COMPREHENSIVE METABOLIC PANEL] Stat LAB 11/24/17 18:49 Completed DRUG SCREEN (RAPID FOR ED) [DRUG SCREEN, URINE, RAPID] LAB 11/24/17 17:30 Completed Stat SALICYLATE Stat LAB 11/24/17 18:19 Completed UA [URINALYSIS C & S IF INDICATED] Stat LAB 11/24/17 17:30 Completed Vital Signs: Temp Pulse Resp BP Pulse Ox 11/24/17 17:37 97.2 F L 113 H 16 135/94 H 95 Departure - Departure Time of Disposition: 20:30 Disposition: ADMITTED INPATIENT Discharge Problem: Acute renal failure (ARF), Renal failure (ARF), acute on chronic, Diabetes type 2, uncontrolled, Schizophrenia Condition: Serious Pt referred to PMD for follow-up: Yes IPMP verified?: No Additional Instructions: Turning case to Dr Liu who will admit patient Mental Health here to see patient and speaking with patient and her family Will probalbly need psychiatric hospitalization once medically stable/ Allergies/Adverse Reactions: Allergies influenza virus vaccine, specific [Influenza Virus Vacc,Specific] Adverse Reaction (Verified 11/15/17 11:08) Sulfa (Sulfonamide Antibiotics) Adverse Reaction (Verified 11/15/17 11:08) Home Medications: Ambulatory Orders Quetiapine Fumarate [Seroquel Xr] 150 mg PO BEDTIME 01/09/14 Rivaroxaban [Xarelto] 15 mg PO 1700 11/10/16 Ondansetron HCl [Zofran] 4 mg PO BID PRN 08/12/17 Atorvastatin Calcium [Lipitor] 20 mg PO BEDTIME 11/15/17 Atorvastatin Calcium [Lipitor] 80 mg PO DAILY tablet 11/18/17 Bismuth Subsalicylate [Pepto-Bismol Chew] 262 mg PO ONCE tab.chew 11/18/17 Delta-3/Dha/Epa/Fish Oil [Delta-3 Fish Oil] 1,000 mg PO DAILY capsule 11/18/17 Sucralfate [Carafate] 1 gm PO ACHS tablet 11/18/17
[2017-11-24] MEDS ORDERED: SEROQUEL PO STA ×2 (20:53→21:27)
[2017-11-24] MEDS ORDERED: QUETIAPINE FUMARATE 300 MG PO SCH (21:45)
[2017-11-25] MEDS: SODIUM CHLORIDE 1,000 ML IV SCH ×2 (00:33→14:10)
[2017-11-25 02:12] VITALS: BMI 35.9
[2017-11-25] MEDS: PROTONIX PO SCH (05:39)
[2017-11-25] MEDS ORDERED: CARAFATE PO SCH (06:30)
[2017-11-25] MEDS: CATAPRES PO SCH ×2 (08:56→20:28)
[2017-11-25] MEDS: MICRO-K CAP PO SCH (08:56)
[2017-11-25] MEDS: NORVASC PO SCH (08:57)
[2017-11-25] MEDS: COREG PO SCH ×2 (08:57→16:59)
[2017-11-25] MEDS: ZESTRIL PO SCH (08:57)
[2017-11-25] MEDS ORDERED: NON-FORMULARY MEDICATION (Potassium Chloride [Klor-Con 10] 10 MEQ) PO SCH (09:00)
[2017-11-25] MEDS ORDERED: NON-FORMULARY MEDICATION (Amlodipine Besylate [Amlodipine Besylate] 10 MG) PO SCH (09:00)
[2017-11-25] MEDS ORDERED: ZESTRIL PO SCH (09:00)
[2017-11-25] MEDS ORDERED: PROTONIX PO SCH (09:00)
[2017-11-25] MEDS ORDERED: NON-FORMULARY MEDICATION (Clonidine Hcl [Clonidine Hcl] 0.2 MG) PO SCH (09:00)
[2017-11-25] MEDS: CARAFATE PO SCH ×3 (10:55→20:26)
[2017-11-25] MEDS: HUMALOG MIX 75-25 SUBCUT SCH ×2 (11:30→17:07)
[2017-11-25] MEDS: HUMALOG SUBCUT SCH ×2 (11:35→17:08)
[2017-11-25] MEDS ORDERED: INSULIN LISPRO PROTAMIN SUBCUT SCH (12:00)
[2017-11-25] MEDS ORDERED: [UNRECOGNIZED DRUG - OTHER] SUBCUT SCH (12:00)
[2017-11-25] MEDS ORDERED: LISPRO SUBCUT SCH (12:00)
[2017-11-25] MEDS ORDERED: NON-FORMULARY MEDICATION (Rivaroxaban [Xarelto] 15 MG) PO SCH (17:00)
[2017-11-25] MEDS: XARELTO PO SCH (17:01)
[2017-11-25] MEDS: LANTUS SUBCUT SCH (20:26)
[2017-11-25] MEDS: SEROQUEL PO SCH (20:27)
[2017-11-25] MEDS: LIPITOR PO SCH (20:28)
[2017-11-26] MEDS ORDERED: CARAFATE ONE (05:42)
[2017-11-26] MEDS ORDERED: HALDOL IM STA (05:59)
[2017-11-26] MEDS: CARAFATE PO SCH ×4 (06:25→21:28)
[2017-11-26] MEDS: PROTONIX PO SCH (06:25)
[2017-11-26] MEDS ORDERED: ATIVAN IM STA ×2 (09:15→14:51)
[2017-11-26] MEDS: SODIUM CHLORIDE 1,000 ML IV SCH ×2 (10:44→15:40)
[2017-11-26] MEDS: COREG PO SCH ×2 (10:44→18:10)
[2017-11-26] MEDS: ZESTRIL PO SCH (10:45)
[2017-11-26] MEDS: NORVASC PO SCH (10:45)
[2017-11-26] MEDS: MICRO-K CAP PO SCH (10:45)
[2017-11-26] MEDS: CATAPRES PO SCH ×2 (10:45→21:28)
[2017-11-26] MEDS: HUMALOG SUBCUT SCH ×2 (13:36→18:10)
[2017-11-26] MEDS: HUMALOG MIX 75-25 SUBCUT SCH ×2 (13:37→18:10)
[2017-11-26] MEDS ORDERED: ATIVAN IM SCH (17:00)
[2017-11-26] MEDS: ATIVAN IM SCH ×2 (18:10→21:28)
[2017-11-26] MEDS: XARELTO PO SCH (18:11)
[2017-11-26] MEDS ORDERED: ATIVAN IM ONE (20:00)
[2017-11-26] MEDS: LIPITOR PO SCH (21:28)
[2017-11-26] MEDS: LANTUS SUBCUT SCH (21:28)
[2017-11-26] MEDS: SEROQUEL PO SCH (21:29)
[2017-11-26] MEDS ORDERED: HALDOL IM ONE (21:55)
[2017-11-26] MEDS ORDERED: HALDOL IM PRN (22:36)
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
[2017-11-27] MEDS: ATIVAN IM SCH ×6 (00:33→21:21)
[2017-11-27] MEDS: SODIUM CHLORIDE 1,000 ML IV SCH ×2 (04:29→12:13)
[2017-11-27] MEDS: CARAFATE PO SCH ×4 (05:51→20:12)
[2017-11-27] MEDS: PROTONIX PO SCH (05:52)
[2017-11-27] MEDS: NORVASC PO SCH (08:57)
[2017-11-27] MEDS: COREG PO SCH ×2 (08:57→16:50)
[2017-11-27] MEDS: ZESTRIL PO SCH (08:57)
[2017-11-27] MEDS: CATAPRES PO SCH ×2 (08:57→20:13)
[2017-11-27] MEDS: MICRO-K CAP PO SCH (08:57)
[2017-11-27] MEDS: HUMALOG SUBCUT SCH ×2 (12:22→18:05)
[2017-11-27] MEDS: HUMALOG MIX 75-25 SUBCUT SCH ×2 (12:22→18:06)
[2017-11-27] MEDS: XARELTO PO SCH (16:50)
[2017-11-27] MEDS: SEROQUEL PO SCH (20:13)
[2017-11-27] MEDS: LIPITOR PO SCH (20:13)
[2017-11-27] MEDS: LANTUS SUBCUT SCH (20:30)
[2017-11-27] MEDS ORDERED: NORCO 5-325 ONE (22:05)
[2017-11-27] MEDS: NORCO 5-325 PO PRN (22:10)
[2017-11-28] MEDS: ATIVAN IM SCH ×6 (01:00→21:13)
[2017-11-28] MEDS: CARAFATE PO SCH ×4 (05:45→21:09)
[2017-11-28] MEDS: PROTONIX PO SCH (05:46)
[2017-11-28] MEDS: ZESTRIL PO SCH (08:59)
[2017-11-28] MEDS: CATAPRES PO SCH ×2 (08:59→21:10)
[2017-11-28] MEDS: NORVASC PO SCH (08:59)
[2017-11-28] MEDS: MICRO-K CAP PO SCH (09:00)
[2017-11-28] MEDS: COREG PO SCH ×2 (09:00→17:43)
--- NOTE | 2017-11-28 11:33 | HP ---
DATE OF SERVICE: 11/24/17 CHIEF COMPLAINT: Change in mental status HISTORY OF PRESENT ILLNESS: This is a 72 year old female who was recently discharged from the [facility] for acute stroke. After going home the patient started behaving differently, started thinking that she was seeing the [place] and everyone is trying to harm her including her son. Initially the patient was taken to the [facility] but they did not get any help. The patient stopped drinking and eating. She is more paranoid and keeps telling everyone that son is out to get her so the patient is being accompanied by the police to the [facility]. Mental Health came and talked to the patient. Meanwhile the blood work was done which showed the BUN 65, creatinine 2.08. At that time the patient is admitted to the [facility] for the IV hydration, change in mental status and psychosis. At the time of examination the patient is very much cooperating and wake, alert and oriented and did not have any problems. REVIEW OF SYSTEMS: CONSTITUTIONAL: No fever, no chills. HEENT: Normal. ENDOCRINE: No weight gain; no weight loss. CVS: No chest pain. No PND, no orthopnea. No shortness of breath. No PND, no orthopnea. RESPIRATORY: No cough, no congestion. No hemoptysis. GI: No nausea, no vomiting. No abdominal pain. No melena. : No hematuria. No polyuria. MUSCULOSKELETAL: No joint swelling. PSYCHIATRIC: Not anxious. No depression. No suicidal thoughts. No homicidal thoughts. Change in mental status. Thinks that the patient's son is trying to hurt her and harm her. Been seeing [place] and Devil is behind her. SKIN: Intact, no open lesions. PAST MEDICAL HISTORY: Coronary artery disease Protective valve Bypass surgery atrial fibrillation History of CVA, recent, no weakness TIA's Osteoarthritis DJD spine GERD Diverticulosis Depression Schizophrenia Paranoid behavior Bipolar PAST SURGICAL HISTORY: Hysterectomy Bypass surgery Partial hepatectomy for hepatic cancer PERSONAL HISTORY: The patient does not smoke or drink. She has a habit of gambling at the [employer]. Family history is significant for the high blood pressure. MEDICATIONS: Protonix Xarelto Coreg Insulin Lasix Clonidine Lisinopril Potassium Amlodipine Norvasc Sucralfate Seroquel the patient seems like she hasn't been taking Seroquel at all. ALLERGIES: Influenza vaccine Sulfa PHYSICAL EXAMINATION: V/S: Blood pressure 135/94, respiratory rate 16, heart rate 113, temperature 97.2 and saturation 95 on the room air. HEENT: Atraumatic, normocephalic. No scleral icterus. Mucosa dry. NECK: Supple. No JVD, no bruit. No lymphadenopathy. No thyromegaly. HEART: S1, S2 normal. Systolic murmur. No cyanosis or clubbing. No ascites. LUNGS: Clear to auscultation. No rales or rhonchi. ABDOMEN: Soft, nontender. Bowel sounds are active. No CVA tenderness. No rigidity or guarding. EXTREMITIES: No pedal edema. No cyanosis or clubbing MUSCULOSKELETAL: Normal joints, no swelling. NEUROLOGIC: The patient has flight of ideas. Eye contact is present. Comfortable and calm at this time. SKIN: Intact; no open lesions. LYMPHATIC: No lymph nodes palpable. LABS: WBC 4.72, hgb 11.5, hct 34.2, plt count 197, sodium 137, potassium 5.1, chloride 103, bicarb 22, BUN 65, creatinine 2.08, glucose 204. ASSESSMENT: 1. Acute on chronic renal failure 2. Atrial fibrillation 3. Coronary artery disease 4. Congestive heart failure 5. Bypass surgery 6. custodial anticoagulation 7. CVA 8. Depression 9. Anxiety 10.Bipolar 11.Schizophrenia PLAN: 1. Admit patient to the regular floor 2. Resume the Seroquel 300mg PO twice a day 3. IV fluids 4. Hold Lasix 5. Accu-checks with coverage TIME SPENT: MORE THAN 65-70 minutes MTDD
[2017-11-28] MEDS: HUMALOG SUBCUT SCH ×2 (11:56→17:29)
[2017-11-28] MEDS: HUMALOG MIX 75-25 SUBCUT SCH ×2 (11:56→17:28)
--- NOTE | 2017-11-28 11:56 | PN ---
DATE OF SERVICE: 11/25/17 SUBJECTIVE: The patient is up and about sitting in the bed, very much comfortable. She says that she has been doing fine. No new complaints. REVIEW OF SYSTEMS: CONSTITUTIONAL: No fever, no chills. HEENT: Normal. ENDOCRINE: No weight gain, no weight loss. CVS: No angina symptoms. No CHF symptoms. No palpitations. No atypical chest pain for CAD. No shortness of breath. No PND, no orthopnea. RESPIRATORY: No cough, no hemoptysis. GI: No nausea, no vomiting. No abdominal pain. : No hematuria. No polyuria. MUSCULOSKELETAL: No joint swelling. PSYCHIATRIC: Not anxious. No depression. No suicidal thoughts. No homicidal thoughts. SKIN: Intact. No rash. PHYSICAL EXAMINATION: V/S: Blood pressure 124/72, respiratory rate 67, temperature 98.5 and saturation 100% on 2liters. HEENT: Normocephalic, atraumatic. Pallor positive. No icterus. NECK: Supple. No JVD, no carotid bruit. No lymphadenopathy. LUNGS: Clear to auscultation. No rales or rhonchi. HEART: S1, S2 normal. No S3. Systolic murmur, gallop or regurgitation. ABDOMEN: Soft, nontender. Bowel sounds active. No rigidity. No rebound or guarding. No CVA tenderness. EXTREMITIES: No pedal edema. No clubbing or cyanosis MUSCULOSKELETAL: No joint swelling. NEUROLOGIC: Behavior has been better. LYMPHATIC: No lymph nodes palpable. SKIN: Intact. LABS: WBC 3.166, hgb 10.9, hct 33.7, plt count 140, potassium 3.9, chloride 106, bicarb 20, BUN 62, creatinine 2.05, glucose 154. ASSESSMENT: 1. Acute on chronic renal failure 2. Diabetes 3. Hypertension 4. Recent CVA 5. Depression 6. Bipolar 7. Schizophrenia 8. Atrial fibrillation on Xarelto PLAN: 1. Continue IV fluids 2. Continue Seroquel 3. Accu-checks with coverage 4. Out of bed to chair activity as tolerated. TIME SPENT: More than 35 minutes MTDD
[2017-11-28] MEDS: NORCO 5-325 PO PRN (11:57)
[2017-11-28 14:20] VITALS: TEMP 97.5
[2017-11-28] MEDS: SODIUM CHLORIDE 1,000 ML IV SCH (17:16)
[2017-11-28] MEDS: XARELTO PO SCH (17:22)
[2017-11-28] MEDS: LIPITOR PO SCH (21:09)
[2017-11-28] MEDS: LANTUS SUBCUT SCH (21:10)
[2017-11-28] MEDS: SEROQUEL PO SCH (21:10)
[2017-11-29] MEDS: ATIVAN IM SCH ×2 (04:22→05:38)
[2017-11-29] MEDS: PROTONIX PO SCH (05:59)
[2017-11-29] MEDS: CARAFATE PO SCH (05:59)
[2017-11-29] MEDS ORDERED: ATIVAN IM PRN (08:23)
[2017-11-29 10:10] VITALS: BP 111/64
--- NOTE | 2017-12-08 15:40 | PN ---
DATE OF SERVICE: 11/28/17 SUBJECTIVE: The patient is quiet and lying in the bed. The patient has been getting the Haldol every 4 to 6 hours prn. Sleepy and wakes to verbal stimuli and then goes back to sleep. Allowing people to do the blood pressure and vitals. No new complaints at this time. PHYSICAL EXAMINATION: V/S: Blood pressure is 138/64, respiratory rate 20, heart rate 64, temperature 97.5, saturation 99. HEENT: Normocephalic, atraumatic. Mucosa dry. Pallor positive. No icterus. NECK: Supple. No JVD, no carotid bruit. No lymphadenopathy. LUNGS: Decreased and clear. No rales or rhonchi. HEART: S1, S2 normal. No S3. Systolic murmur positive, gallop or regurgitation. ABDOMEN: Soft, nontender. Bowel sounds active. No rigidity. No rebound or guarding. No CVA tenderness. EXTREMITIES: No pedal edema. No clubbing or cyanosis MUSCULOSKELETAL: No joint swelling. NEUROLOGIC: Awake, alert, responds to verbal stimuli and then goes back to sleep. No focal deficit. LYMPHATIC: No lymph nodes palpable. SKIN: Intact. LABS: White count is 3.71, hemoglobin 10.0, hematocrit 32.4, platelet count 132 , sodium 141, potassium 4.2, chloride 114, bicarb 15, BUN 38, creatinine 1.57, glucose 126. ASSESSMENT: 1. CHANGE IN MENTAL STATUS, PARANOID DELUSIONAL STATE. SEDATED WITH MEDICATION AT THIS TIME. 2. ACUTE ON CHRONIC RENAL FAILURE, BUT KIDNEY FUNCTION HAS IMPROVED. 3. DIABETES WITH A1C 9.6. 4. HYPERTENSION 5. DYSLIPIDEMIA 6. AORTIC VALVE REPLACEMENT 7. SKILLED NURSING ANTICOAGULATION 8. DEPRESSION 9. SCHIZOPHRENIA 10. BIPOLAR PLAN: 1. Continue the Haldol prn. 2. IV fluids. The patient is not aggravating it 3. Accuchecks with the coverage. 4. Continue to look for the placement of the patient. It has been a big issue because of the patient's multiple medical problems. No one is accepting the patient so far. TIME SPENT: More than 35 minutes MTDD
--- NOTE | 2017-12-09 10:50 | PN ---
DATE OF SERVICE: 11/27/17 SUBJECTIVE: The patient is quiet, calm and laying in the bed. Not in any distress. We did try to place the patient at the [facility] in [place] and they did say that patient is complex for them. The patient has been getting Haldol and Ativan as needed. Right now she is sleeping and less combative. REVIEW OF SYSTEMS: CONSTITUTIONAL: No fever, no chills. HEENT: Normal. ENDOCRINE: No weight gain, no weight loss. CVS: No angina symptoms. No CHF symptoms. No palpitations. No atypical chest pain for CAD. No shortness of breath. No PND, no orthopnea. RESPIRATORY: No cough, no hemoptysis. GI: No nausea, no vomiting. No abdominal pain. : No hematuria. No polyuria. MUSCULOSKELETAL: No joint swelling. PSYCHIATRIC: Not anxious. No depression. No suicidal thoughts. No homicidal thoughts. The patient is resting now and not combative. Quiet. SKIN: Intact. No rash. PHYSICAL EXAMINATION: V/S: Blood pressure 162/83, respiratory rate 18, heart rate 78, temperature 98.0 and saturation 98%. HEENT: Normocephalic, atraumatic. Mucosa dry. Pallor positive. No icterus. NECK: Supple. No JVD, no carotid bruit. No lymphadenopathy. LUNGS: Decreased and clear to auscultation. No rales or rhonchi. HEART: S1, S2 normal. No S3. Systolic murmur, gallop or regurgitation. ABDOMEN: Soft, nontender. Bowel sounds active. No rigidity. No rebound or guarding. No CVA tenderness. EXTREMITIES: No pedal edema. No clubbing or cyanosis MUSCULOSKELETAL: No joint swelling. NEUROLOGIC: Awake, alert, oriented times three. No focal deficit. LYMPHATIC: No lymph nodes palpable. SKIN: Intact. LABS: WBC 3.71, hgb 10.0, hct 32.4, plt count 132, sodium 141, potassium 4.2, Chloride 115, bicarb 15, BUN 38 and creatinine 1.57, A1c is 9.6. ASSESSMENT: 1. Acute on chronic renal failure 2. Schizophrenia 3. Bipolar with acute manic episode and paranoid behavior 4. Coronary artery disease status post bypass surgery and aortic valve replacement 5. Prostatic valve 3 years ago 6. Atrial fibrillation on Xarelto 7. CVA time three 8. Diabetes 9. Hypertension 10.Dyslipidemia PLAN: 1. Continue IV fluids 2. Continue Haldol 1mg PO 3. Accu-checks with coverage 4. Hypoglycemia been discussed 5. Will decrease the IV fluids to 40ml per hour TIME SPENT: More than 35 minutes MTDD
--- NOTE | 2017-12-09 11:14 | PN ---
DATE OF SERVICE: 11/26/17 SUBJECTIVE: The patient was admitted with the change in mental status and acute on chronic renal failure. The patient's condition has worsening today. The patient is threatening to harm everyone, hitting people. Ativan and Haldol was given which did make her calm. Went and talked to her, she was able to recognize me but she is totally paranoid and not trusting any other persons. Still very strange behavior which is change in the behavior from yesterday. REVIEW OF SYSTEMS: CONSTITUTIONAL: No fever, no chills. HEENT: Normal. ENDOCRINE: No weight gain, no weight loss. CVS: No angina symptoms. No CHF symptoms. No palpitations. No atypical chest pain for CAD. No shortness of breath. No PND, no orthopnea. RESPIRATORY: No cough, no hemoptysis. GI: No nausea, no vomiting. No abdominal pain. : No hematuria. No polyuria. MUSCULOSKELETAL: No joint swelling. PSYCHIATRIC: Not anxious. No depression. No suicidal thoughts. No homicidal thoughts. Paranoid, delusional and no eye contact. SKIN: Intact. No rash. PHYSICAL EXAMINATION: V/S: No blood pressure readings were done today as patient is not cooperative. From yesterday last blood pressure 134/73, respiratory rate 16, heart rate 72 and temperature 97.9 with saturation 98%. HEENT: Normocephalic, atraumatic. Mucosa dry. Pallor positive. No icterus. NECK: Supple. No JVD, no carotid bruit. No lymphadenopathy. LUNGS:Decreased and clear to auscultation. No rales or rhonchi. HEART: S1, S2 normal. No S3. Systolic murmur, gallop or regurgitation. ABDOMEN: Soft, nontender. Bowel sounds active. No rigidity. No rebound or guarding. No CVA tenderness. EXTREMITIES: No pedal edema. No clubbing or cyanosis MUSCULOSKELETAL: No joint swelling. NEUROLOGIC: Awake, alert, totally confused. No focal deficit. LYMPHATIC: No lymph nodes palpable. SKIN: Intact. LABS: Sodium 141, potassium 4.2, chloride 15, bicarb 38, BUN 1.57 and glucose 126. WBC 3.71, hgb 10.0, hct 32.4, plt count 132 ASSESSMENT: 1. Acute on chronic renal failure 2. Psychosis; paranoid, delusional behavior 3. History of schizophrenia and bipolar, was not taking medications 4. Diabetes 5. History of aortic valve replacement 6. History of liver caner with partial Hepatectomy PLAN: 1. Haldol 1mg every 4 hours 2. Ativan PRN 3. Will be talking to the Mental Health workers for possible placement because of the safety issues for the patient. TIME SPENT: More than 35 minutes MTDD
--- NOTE | 2018-01-16 14:14 | DS ---
DATE OF SERVICE: 11/29/17 FINAL DIAGNOSIS: 1. Severe change in mental status with worsening of schizophrenia symptoms. 2. Acute and on chronic renal failure 3. Recent stroke 11/20 4. Atrial fibrillation, rate controlled on Xarelto 5. Chronic kidney disease 6. Diabetes Type 2 7. Anemia stable 8. Aortic valve replacement 9. History of partial hepatectomy for the Hepatoma 10.Schizophrenia 11.Depression 12.Bipolar disorder 13.CAD with status post bypass surgery and aortic valve replacement 14.Prosthetic liv three years ago DISCHARGE INSTRUCTIONS: Discharge the patient to the [facility] for the psychiatric problems and inpatient treatment. MEDICATIONS AT DISCHARGE: Norvasc Coreg Clonidine Lasix Lantus Lisinopril Protonix Potassium Lipitor Invokana Lispro Zofran NEW PRESCRIPTIONS: None DIET INSTRUCTIONS: Cardiac and healthy diet and diabetic diet ACTIVITY: Bed rest DISEASE SPECIFIC EDUCATION: Dehydration Kidney failure Chronic kidney disease Worsening of symptoms been discussed and verbalized understanding. HOSPITAL COURSE: Henna Ramsay 72 year old female was brought to the emergency room for the change in mental status, not being by herself. The patient was fully at a confusional state and she was thinking that people are out to get her. Found to be in acute renal failure with BUN 65, creatinine 2.08. Toxicology negative, urine is negative. TSH normal. At that time mental health was involved they wanted the kidney functions to have improved before they place the patient in a facility. The patient was admitted to the hospital and started on the IV fluids. The patient did have a very unstable stay, was not allowing anyone to come or touch. The patient was hitting the people and throwing the things at other people. She has be calmed down with the medications. Ativan 2mg every Q 12 hours was given as needed. Refused to take most of the medications. Seroquel continued 300mg at bedtime. Haldol was given 1mg IM. With the given treatment the patient was calmed down and BUN and creatinine was getting better. Meanwhile Mental Health was able to work and place in the patient in the [facility] place so the patient is being transferred to the [facility] for the further treatment and management plan. TIME SPENT: MORE THAN 65 MINUTES MTDD
== END 2017-11-29 10:18 | DRG 885 ==
LOC: ED 17:36 → MEDSURG B 23:23
PROVIDERS: ADMIT Emergency Medicine; ATTEND Emergency Medicine
DX: F20.9 Schizophrenia, unspecified (principal); N17.9 Acute kidney failure, unspecified; E11.65 Type 2 diabetes mellitus with hyperglycemia; N18.9 Chronic kidney disease, unspecified; R41.82 Altered mental status, unspecified; I48.91 Unspecified atrial fibrillation; D64.9 Anemia, unspecified; F31.9 Bipolar disorder, unspecified; I25.10 Atherosclerotic heart disease of native coronary artery without angina pectoris; E78.5 Hyperlipidemia, unspecified; T50.906A Underdosing of unspecified drugs, medicaments and biological substances, initial encounter; Z79.01 Long term (current) use of anticoagulants; Z79.4 Long term (current) use of insulin; Z86.73 Personal history of transient ischemic attack (TIA), and cerebral infarction without residual deficits; Z95.2 Presence of prosthetic heart valve; Z95.1 Presence of aortocoronary bypass graft; Z91.128 Patient's intentional underdosing of medication regimen for other reason; Z91.14 Patient's other noncompliance with medication regimen; Z85.05 Personal history of malignant neoplasm of liver
CPT/HCPCS: 36415; 80053; 80306; 80307; 81001; 82550; 82962; 83036; 84443; 84484; 85025; 87081; 97802; 99285

== ENCOUNTER 2017-11-29 10:20 | Outpatient (CLI) | END 2017-11-29 10:21 | disposition short-term general hospital (02) | LOC: AMBL 10:20 | PROVIDERS: ATTEND Emergency Medicine | DX: F91.9 Conduct disorder, unspecified (principal) ==

== ENCOUNTER 2017-12-14 12:08 | Outpatient (CLI) | END 2017-12-14 12:09 | disposition left against medical advice (07) | LOC: AMBL 12:08 | PROVIDERS: ATTEND Internal Medicine | DX: Z04.3 Encounter for examination and observation following other accident (principal); E11.9 Type 2 diabetes mellitus without complications; W19.XXXA Unspecified fall, initial encounter ==

== ENCOUNTER 2017-12-23 08:48 | Outpatient (CLI) | END 2017-12-23 08:49 | disposition home or self-care (01) | LOC: RHC-LAB 08:48 | PROVIDERS: ATTEND Nurse Practitioner Family | DX: R94.6 Abnormal results of thyroid function studies (principal); I10 Essential (primary) hypertension; D64.9 Anemia, unspecified | CPT/HCPCS: 36415; 80053; 84443; 85025 ==

== ENCOUNTER 2017-12-26 09:48 | Outpatient (CLI) | END 2017-12-26 09:49 | disposition home or self-care (01) | LOC: RHC-LAB 09:48 | PROVIDERS: ATTEND Emergency Medicine | DX: E87.5 Hyperkalemia (principal); I10 Essential (primary) hypertension; E78.5 Hyperlipidemia, unspecified; E11.9 Type 2 diabetes mellitus without complications | CPT/HCPCS: 36415; 80053; 84436; 84443; 84479 ==

== ENCOUNTER 2017-12-30 10:00 | Outpatient (RCR) | END 2018-01-02 23:59 | LOC: NEWBEG 10:00 | PROVIDERS: ATTEND Psychiatry & Neurology Psychiatry | DX: F31.73 Bipolar disorder, in partial remission, most recent episode manic (principal) | CPT/HCPCS: 90792; 90853 ==

== ENCOUNTER 2017-12-30 13:47 | Emergency (ER) ==
[2017-12-30 14:00] VITALS: BP 167/79; TEMP 98.4; BMI 36.1
--- NOTE | 2017-12-30 15:17 | CT ---
EXAM: CT of the abdomen pelvis without contrast History: Abdominal pain. Comparison: CT abdomen pelvis 02/27/2016 Technique: Multiplanar CT images through the abdomen pelvis were obtained without the administration of IV contrast Findings: No change in the calcified pleural plaques. Lung bases are free of consolidation. No acu te osseous abnormalities. Question small stones in the gallbladder neck. No gallbladder inflammation. No peripancreatic inflam mation. Atherosclerotic vascular calcifications. Adrenal glands are unremarkable. No focal liver o r splenic lesions. No renal stones and no hydronephrosis. No bowel obstruction. No free air. No a scites. No bladder wall thickening. Colonic diverticulosis. No free air. No ascites. No inflamma tory stranding. The appendix is not seen. There are no secondary signs of appendicitis. Uterus is not seen. Impression: 1. No acute intra-abdominal or pelvic process. 2. Colonic diverticulosis. 3. Possible cholelithiasis. 4. 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
--- NOTE | 2017-12-30 16:15 | ED.PDOC ---
General ED Provider: Dr. JOSHUA STRICKLAND Chief Complaint: Nausea/Vomiting Stated Complaint: n/vomiting Time Seen by Physician: 14:00 (started after eating only today after food intake ) Mode of Arrival: Walk-In Information Source: Patient Exam Limitations: No limitations Primary Care [facility] Nursing and Triage Documentation Reviewed and Agree: Yes Reviewed sepsis parameters & appropriate labs ordered?: Yes System Inflammatory Response Syndrome: Not Applicable Sepsis Protocol: For patient's 13 years and over: Temp is 96.8 and below OR 101 and greater Pulse >90 BPM Resp >20/minute Acutely Altered Mental Status Are patient's symptoms suggestive of a new infection, such as: -Pneumonia -Skin, Soft Tissue -Endocarditis -UTI -Bone, Joint Infection -Implantable Device -Acute Abdominal Infection -Wound Infection -Meningitis -Blood Stream Catheter Infection -Unknown System Inflammatory Response Syndrome: Not Applicable GI Complaint Exam - Vomiting/Diarrhea Complaint/Exam Onset/Duration: 4 hours Symptoms Are: Resolved Episodes of Vomiting over last 24 Hours: 3 (no blood or coffee grounds ) Episodes of Diarrhea Over Last 24 Hours: 0 Initial Severity: Mild Current Severity: None Character of Vomiting: Reports: Non-bilious Character of Diarrhea: Denies: Bloody, Watery, Mucoid, Malodorous Aggravating: Reports: None Alleviating: Reports: None Associated Signs and Symptoms: Denies: Dizziness, Light-headedness, Melena, Hematemesis, Fever, Abdominal pain, Cramping Non-GI Risk Factors: Reports: None Surgical Obstruction Risk Factors: Reports: None Related Surgical History: Reports: None Abdominal Findings: Present: None Kussmaul Respirations Present: No Differential Diagnoses: Viral Gastroenteritis Review of Systems - Review Of Systems Constitutional: Reports: No symptoms Eyes: Reports: No symptoms Ears, Nose, Mouth, Throat: Reports: No symptoms Respiratory: Reports: No symptoms Cardiac: Reports: No symptoms GI: Reports: Vomiting : Reports: No symptoms Musculoskeletal: Reports: No symptoms Skin: Reports: No symptoms Neurological: Reports: No symptoms Endocrine: Reports: No symptoms Hematologic/Lymphatic: Reports: No symptoms All Other Systems: Reviewed and Negative Past Medical History - Past Medical History Previously Healthy: No Endocrine: Reports: DM 1, Dyslipidemia Cardiovascular: Reports: CAD, [place], Hypertension, A-Fib, Other Respiratory: Reports: None Hematological: Reports: None Gastrointestinal: Reports: PUD, Liver Genitourinary: Reports: None Neuro/Psych: Reports: TIA, CVA, Anxiety, Depression, Bipolar Disorder Musculoskeletal: Reports: Arthritis Cancer: Reports: Other (LIVER) Last Menstrual Period: unknown Other Pertinent Past Medical History: cabg ulcer hyst - Surgical History General Surgical History: Reports: Hysterectomy, CABG, Other (Atrial flutter/ fib paroxysmal. Prosthetic pig valve, aortic. CA of the liver, 90% removed. ) - Family History Family History: Reports: Unknown - Social History Smoking Status: Former smoker Hx Substance Use: No Alcohol Screening: None Physical Exam - Physical Exam Appearance: Well-appearing, No pain distress, Well-nourished Eyes: DUKE, EOMI, Conjunctiva clear ENT: Ears normal, Nose normal, Oropharynx normal Respiratory: Airway patent, Breath sounds clear, Breath sounds equal, Respirations nonlabored Cardiovascular: RRR, Pulses normal, No rub, No murmur GI/: Soft, Nontender, No masses, Bowel sounds normal, No Organomegaly Musculoskeletal: Normal strength, ROM intact, No edema, No calf tenderness Skin: Warm, Dry, Normal color Neurological: Sensation intact, Motor intact, Reflexes intact, Cranial nerves intact, Alert, Oriented Psychiatric: Affect appropriate, Mood appropriate Interpretation - Radiology Interpretation Radiology Interpretation By: Radiologist Radiology Results: No acute changes Critical Care Note - Critical Care Note Total Time (mins): 0 Course - Course Hematology/Chemistry: 12/30/17 14:44 12/30/17 14:44 Orders, Labs, Meds: Lab Review 12/30/17 12/30/17 14:44 14:44 WBC 8.40 RBC 4.12 L Hgb 11.5 L Hct 35.9 L MCV 87.1 MCH 27.9 MCHC 32.0 RDW Coeff of Silvana 14.0 Plt Count 223 Immature Gran % (Auto) 0.2 Neut % (Auto) 82.7 Lymph % (Auto) 10.7 Pratt % (Auto) 5.2 Eos % (Auto) 0.5 Baso % (Auto) 0.7 Immature Gran # (Auto) 0.0 Neut # (Auto) 6.9 Lymph # (Auto) 0.9 Pratt # (Auto) 0.4 Eos # (Auto) 0.0 Baso # (Auto) 0.1 Sodium 139 Potassium 4.4 Chloride 108 H Carbon Dioxide 22 L Anion Gap 13.4 BUN 26 H Creatinine 1.22 Estimated GFR (MDRD) 43.00 BUN/Creatinine Ratio 21.31 Glucose 158 H Calcium 10.0 Total Bilirubin 0.6 AST 12 L ALT 11 L Alkaline Phosphatase 69 Total Protein 7.7 Albumin 3.5 Globulin 4.2 Albumin/Globulin Ratio 0.83 Orders Category Date Time Status CBC W/ AUTO DIFF Stat LAB 12/30/17 14:44 Completed COMPREHENSIVE METABOLIC PANEL Stat LAB 12/30/17 14:[address] ABDOMEN/PELVIS WO CONTRAST Stat RADS 12/30/17 14:38 Completed Vital Signs: Temp Pulse Resp BP Pulse Ox 12/30/17 13:51 98.4 F 74 20 167/79 H 96 Departure - Departure Time of Disposition: 16:14 Disposition: HOME SELF-CARE Discharge Problem: Vomiting Instructions: Gastroenteritis (ED), Cyclic Vomiting Syndrome (ED) Condition: Good Pt referred to PMD for follow-up: Yes IPMP verified?: No Additional Instructions: Please call your Family Physician as soon as possible to schedule a follow-up appointment. Allergies/Adverse Reactions: Allergies influenza virus vaccine, specific [Influenza Virus Vacc,Specific] Adverse Reaction (Verified 11/15/17 11:08) Sulfa (Sulfonamide Antibiotics) Adverse Reaction (Verified 11/15/17 11:08) Home Medications: Ambulatory Orders Rivaroxaban [Xarelto] 15 mg PO 1700 11/10/16 Atorvastatin Calcium [Lipitor] 20 mg PO BEDTIME 11/15/17 Sucralfate [Carafate] 1 gm PO ACHS tablet 11/18/17 Insulin Lispro Protamin/Lispro [Humalog Mix 50-50 Kwikpen] 6 unit SQ BID LUNCH & SUPPER 11/24/17 Quetiapine Fumarate [Quetiapine Fumarate ER] 300 mg PO BEDTIME 11/24/17 Canagliflozin [Invokana] 100 mg PO DAILY 12/23/17 Risperidone 1 mg PO DAILY 12/23/17
== END 2017-12-30 16:36 | disposition home or self-care (01) ==
LOC: ED 13:47
DX: R11.2 Nausea with vomiting, unspecified (principal); E10.9 Type 1 diabetes mellitus without complications; I10 Essential (primary) hypertension; E78.5 Hyperlipidemia, unspecified; I25.810 Atherosclerosis of coronary artery bypass graft(s) without angina pectoris; I25.2 Old myocardial infarction; Z79.899 Other long term (current) drug therapy; Z86.73 Personal history of transient ischemic attack (TIA), and cerebral infarction without residual deficits; F31.73 Bipolar disorder, in partial remission, most recent episode manic
CPT/HCPCS: 36415; 80053; 85025; 90853; 99283

== ENCOUNTER 2018-01-03 10:03 | Outpatient (RCR) | END 2018-02-02 23:59 | LOC: NEWBEG 10:03 | PROVIDERS: ATTEND Psychiatry & Neurology Psychiatry | DX: F31.73 Bipolar disorder, in partial remission, most recent episode manic (principal) ==

== ENCOUNTER 2018-01-05 10:15 | Inpatient (IN) | payer OTHER ==
[2018-01-05 10:58] VITALS: BMI 35.8
[2018-01-05] MEDS ORDERED: INSULIN LISPRO PROTAMIN SQ SCH (12:00)
[2018-01-05] MEDS ORDERED: LISPRO SQ SCH (12:00)
[2018-01-05] MEDS ORDERED: [UNRECOGNIZED DRUG - OTHER] SQ SCH (12:00)
--- NOTE | 2018-01-05 13:16 | US ---
EXAM: Limited abdominal ultrasound. History: Abdominal pain and vomiting. Comparison: CT abdomen pelvis 12/30/2017 Technique: Multiple sonographic images through the abdomen were obtained. Color duplex Doppler was used to interrogate vascular flow. Findings: The visualized pancreas demonstrates no gross abnormality. Limited visualization of the right kidney demonstrates no evidence for hydronephrosis. There is antegrade flow within the main portal vein. No focal liver lesions identified. Gallbladder sludge and/or small gallstones. No gallbladder wall thickening. Common bile duct measures 0.5 cm in caliber. Impression . Gallbladder sludge and/or small gallstones. No gallbladder wall thickening.
[2018-01-05] MEDS: HUMALOG SUBCUT SCH ×2 (14:22→17:03)
[2018-01-05] MEDS: HUMALOG MIX 75-25 SUBCUT SCH ×2 (14:23→17:03)
[2018-01-05] MEDS: CARAFATE PO SCH ×3 (14:30→20:10)
[2018-01-05] MEDS: SODIUM CHLORIDE 1,000 ML IV SCH (14:30)
[2018-01-05] MEDS ORDERED: NON-FORMULARY MEDICATION (Rivaroxaban [Xarelto] 15 MG) PO SCH (17:00)
[2018-01-05] MEDS: COREG PO SCH (17:01)
[2018-01-05] MEDS: XARELTO PO SCH (17:01)
[2018-01-05] MEDS: CATAPRES PO SCH (20:09)
[2018-01-05] MEDS: SEROQUEL PO SCH (20:09)
[2018-01-05] MEDS: LANTUS SUBCUT SCH (20:10)
[2018-01-05] MEDS: LIPITOR PO SCH (20:10)
[2018-01-05] MEDS: ZESTRIL PO SCH (20:10)
[2018-01-05] MEDS ORDERED: NON-FORMULARY MEDICATION (Clonidine Hcl [Clonidine Hcl] 0.2 MG) PO SCH (21:00)
[2018-01-05] MEDS ORDERED: QUETIAPINE FUMARATE 300 MG PO SCH (21:00)
[2018-01-06] MEDS: PROTONIX PO SCH (05:32)
[2018-01-06] MEDS: LASIX TAB PO SCH (05:32)
[2018-01-06] MEDS: CARAFATE PO SCH ×4 (05:32→20:19)
[2018-01-06] MEDS ORDERED: NON-FORMULARY MEDICATION (Potassium Chloride [Klor-Con 10] 10 MEQ) PO SCH (09:00)
[2018-01-06] MEDS ORDERED: NON-FORMULARY MEDICATION (Amlodipine Besylate [Amlodipine Besylate] 10 MG) PO SCH (09:00)
[2018-01-06] MEDS: CATAPRES PO SCH ×2 (12:40→20:18)
[2018-01-06] MEDS: NORVASC PO SCH (12:40)
[2018-01-06] MEDS: HUMALOG SUBCUT SCH ×2 (12:41→17:30)
[2018-01-06] MEDS: COREG PO SCH ×2 (12:41→17:30)
[2018-01-06] MEDS: MICRO-K CAP PO SCH (12:41)
[2018-01-06] MEDS: HUMALOG MIX 75-25 SUBCUT SCH ×2 (12:41→17:31)
[2018-01-06] MEDS: ZESTRIL PO SCH ×2 (12:42→20:18)
--- NOTE | 2018-01-06 13:37 | NM ---
EXAM: Hepatobiliary imaging HISTORY: Right upper quadrant pain COMPARISON: Limited abdominal ultrasound on 01/05/2018 showed gallbladder sludge. Abdominal CT on showed possible cholelithiasis. TECHNIQUE: Patient was injected 5.1 mCi of technetium 99m mebrofenin intravenously. Multiple anterio r scintigraphic images of the right upper quadrant region of the abdomen were obtained up to 1 hour i nterval. Patient was infused 2 mcg of cholecystokinin intravenously and gallbladder ejection fractio n was calculated. FINDINGS: There is normal visualization of the liver, gallbladder, bile duct and small bowel loops. Gallbladder ejection fraction is 24%. IMPRESSION: Findings are compatible with chronic acalculous cholecystitis or biliary dyskinesia.
[2018-01-06] MEDS: SODIUM CHLORIDE 1,000 ML IV SCH ×2 (15:11→17:30)
[2018-01-06] MEDS: XARELTO PO SCH (17:30)
[2018-01-06] MEDS: LANTUS SUBCUT SCH (20:17)
[2018-01-06] MEDS: LIPITOR PO SCH (20:18)
[2018-01-06] MEDS: SEROQUEL PO SCH (20:19)
[2018-01-07] MEDS: PROTONIX PO SCH (05:36)
[2018-01-07] MEDS: LASIX TAB PO SCH (05:36)
[2018-01-07] MEDS: CARAFATE PO SCH ×2 (05:36→11:54)
[2018-01-07] MEDS: NORVASC PO SCH (08:34)
[2018-01-07] MEDS: MICRO-K CAP PO SCH (08:34)
[2018-01-07] MEDS: ZESTRIL PO SCH (08:34)
[2018-01-07] MEDS: COREG PO SCH (08:34)
[2018-01-07] MEDS: CATAPRES PO SCH (08:34)
[2018-01-07] MEDS: HUMALOG SUBCUT SCH (11:53)
[2018-01-07] MEDS: HUMALOG MIX 75-25 SUBCUT SCH (11:53)
[2018-01-07 12:54] VITALS: BP 102/60; TEMP 97.9
--- NOTE | 2018-02-04 12:37 | DS ---
DATE OF SERVICE: 01/07/18 FINAL DIAGNOSIS: 1. INTRACTABLE NAUSEA AND VOMITING 2. GASTROENTERITIS 3. CHOLELITHIASIS WITH EJECTION FRACTION 24% 4. DIABETES 5. ACUTE ON CHRONIC KIDNEY DISEASE 6. CAD 7. AORTIC VALVE REPLACEMENT 8. ATRIAL FIBRILLATION 9. HISTORY OF LIVER CANCER, PARTIAL HEPATECTOMY 10. DEPRESSION 11. ANXIETY 12. SCHIZOPHRENIA DISCHARGE INSTRUCTIONS: Followup appointment with Dr. Liu in the clinic on Tuesday. Call for appointment. MEDICATIONS AT DISCHARGE: Norvasc Coreg Clonidine Lasix Lantus Lisinopril Protonix Potassium Lipitor Invokana Lispro Seroquel Xarelto Zofran NEW PRESCRIPTIONS: Zofran 4 mg one p.o. t.i.d. daily as needed for nausea DIET INSTRUCTIONS: Soft and advance as tolerated. ACTIVITY: As patient tolerates. SMOKING: Former smoker DISEASE SPECIFIC EDUCATION: Dehydration, gastroenteritis and diabetes with risk of DKA discussed, verbalized understanding. HOSPITAL COURSE: This is a 72-year-old female with multiple medical problems with CAD, valve replacement, diabetes. The patient called the office two days before as the patient was having intractable nausea and vomiting, unable to keep anything down. The patient's friend and caregiver called the patient and brought to the office. CT of abdomen and pelvis done which showed cholelithiasis, no acute findings. Zofran was prescribed as outpatient. The patient was not feeling better and in view of diabetes and risk of DKA, the patient was admitted to the hospital, started on IV fluids, Zofran and Protonix as well as clear liquids. We obtained a right upper quadrant ultrasound which showed cholelithiasis but no acute cholecystitis. We did the hepatobiliary scan which showed ejection fraction of 24%. Meanwhile, the nausea was better so the patient was given clear liquids and tolerated when advanced diet. Up and about walking without any problems. As the patient was asymptomatic cholelithiasis, given her multiple medical problems, surgery was not deemed the choice at this time so the patient will be discharged home and will follow as an outpatient within 4 to 5 days. TIME SPENT: MORE THAN 45 to 50 MINUTES MTDD
== END 2018-01-07 15:05 | disposition home or self-care (01) | DRG 392 ==
LOC: SCU 10:15
PROVIDERS: ADMIT Emergency Medicine; ATTEND Emergency Medicine
DX: K52.9 Noninfective gastroenteritis and colitis, unspecified (principal); N17.9 Acute kidney failure, unspecified; K80.20 Calculus of gallbladder without cholecystitis without obstruction; E11.22 Type 2 diabetes mellitus with diabetic chronic kidney disease; I48.91 Unspecified atrial fibrillation; N18.9 Chronic kidney disease, unspecified; I25.10 Atherosclerotic heart disease of native coronary artery without angina pectoris; F32.9 Major depressive disorder, single episode, unspecified; F41.9 Anxiety disorder, unspecified; F20.9 Schizophrenia, unspecified; Z79.01 Long term (current) use of anticoagulants; Z79.4 Long term (current) use of insulin; Z95.2 Presence of prosthetic heart valve; Z85.05 Personal history of malignant neoplasm of liver; Z90.89 Acquired absence of other organs
CPT/HCPCS: 36415; 80053; 81001; 82550; 82962; 84484; 85025; 93005; 93010

== ENCOUNTER 2018-01-17 18:02 | Inpatient (IN) ==
--- NOTE | 2018-01-17 19:29 | CT ---
EXAM: CT of the head without contrast. HISTORY: Weakness. COMPARISON: 11/15/2017. TECHNIQUE: Noncontrast CT of the head. FINDINGS: No intracranial hemorrhage or mass effect is identified. The sulci and ventricles are normal in size and configuration. There is mild prominence of the sulci. The ventricles are normal in size and conf iguration. Multiple remote bilateral cerebellar hemisphere infarcts are again seen. There is a proba ble small remote left caudate lacunar infarct. Bicerebral periventricular and subcortical white sade er hypodensities are again seen. No large area of naranjo matter differentiation loss is seen. Intracra nial calcified atherosclerotic plaque is present. The calvarium is intact. The visualized paranasal sinuses are unopacified. IMPRESSION: No evidence of an acute intracranial process. Mild atrophy. Similar moderate bicerebral white matter hypodensities which may be related chronic small vessel isch emic changes. Small bilateral cerebellar hemisphere remote infarcts. Intrecranial atherosclerosis.
--- NOTE | 2018-01-17 19:36 | ED.PDOC ---
General ED Provider: Dr. LORRAINE BARRIGA-ER Chief Complaint: Weakness Stated Complaint: im weak--i feel like i am going to pass out when i stand up Time Seen by Physician: 18:05 Mode of Arrival: Stretcher Information Source: Patient, EMT Exam Limitations: No limitations Primary Care Provider: [facility]UAN [facility] Nursing and Triage Documentation Reviewed and Agree: Yes Reviewed sepsis parameters & appropriate labs ordered?: Yes System Inflammatory Response Syndrome: Not Applicable Sepsis Protocol: For patient's 13 years and over: Temp is 96.8 and below OR 101 and greater Pulse >90 BPM Resp >20/minute Acutely Altered Mental Status Are patient's symptoms suggestive of a new infection, such as: -Pneumonia -Skin, Soft Tissue -Endocarditis -UTI -Bone, Joint Infection -Implantable Device -Acute Abdominal Infection -Wound Infection -Meningitis -Blood Stream Catheter Infection -Unknown Miscellaneous Complaint Exam - Complex/Multi-System Complaint/Exam Onset/Duration: 24hrs Symptoms Are: Still present Initial Severity: Mild Current Severity: Mild Associated Signs and Symptoms: Reports: Dizziness, Weakness, Decreased oral intake, Anticoagulation Therapy. Denies: Decreased responsiveness, Confusion, Agitation, Syncope, Headache, Short of air, Cough, Wheezing, Hemoptysis, Chest pain, Palpitations, Edema, Nausea, Vomiting, Diarrhea, Abdominal pain, Back pain , Dysuria, Hematemesis, Melena, Fever, Diaphoresis Related History: Recent Hospitilization Respiratory Distress: Mild Tachypnea Present: No Stridor Present: No Abdominal Findings: Present: Normal findings Glascow Coma Scale (see protocol): 15 Meningeal Signs Positive: No Focal Weakness: Present: None Focal Sensory Loss: Present: None Gag Reflex Present: No Babinski Sign: Negative Right, Negative Left Skin Findings: Present: Normal findings Joint Swelling Present: No In-Dwelling Device Present: No Quality Indicator For Non-Traumatic Chest Pain/Syncope: EKG Performed Review of Systems - Review Of Systems Constitutional: Reports: Weakness Eyes: Reports: No symptoms Ears, Nose, Mouth, Throat: Reports: No symptoms Respiratory: Reports: No symptoms Cardiac: Reports: No symptoms GI: Reports: No symptoms : Reports: No symptoms Musculoskeletal: Reports: No symptoms Skin: Reports: No symptoms Neurological: Reports: No symptoms Endocrine: Reports: No symptoms Hematologic/Lymphatic: Reports: No symptoms All Other Systems: Reviewed and Negative Past Medical History - Past Medical History Previously Healthy: No Endocrine: Reports: DM 1, Dyslipidemia Cardiovascular: Reports: CAD, [place], Hypertension, A-Fib, Other Respiratory: Reports: None Hematological: Reports: None Gastrointestinal: Reports: PUD, Liver Genitourinary: Reports: None Neuro/Psych: Reports: TIA, CVA, Anxiety, Depression, Bipolar Disorder Musculoskeletal: Reports: Arthritis Cancer: Reports: Other (LIVER) Last Menstrual Period: hysterectomy Other Pertinent Past Medical History: cabg ulcer hyst - Surgical History General Surgical History: Reports: Hysterectomy, CABG, Other (Atrial flutter/ fib paroxysmal. Prosthetic pig valve, aortic. CA of the liver, 90% removed. ) - Family History Family History: Reports: Unknown - Social History Smoking Status: Former smoker Hx Substance Use: No Alcohol Screening: None Physical Exam - Physical Exam Appearance: Ill-appearing, No pain distress, Well-nourished Eyes: DUKE, EOMI, Conjunctiva clear ENT: Ears normal, Nose normal, Oropharynx normal Neck: Supple Respiratory: Airway patent, Breath sounds clear, Breath sounds equal, Respirations nonlabored Cardiovascular: RRR, Pulses normal, No rub, No murmur GI/: Soft, Nontender, No masses, Bowel sounds normal, No Organomegaly Musculoskeletal: Normal strength, ROM intact, No edema, No calf tenderness Skin: Warm, Dry, Normal color Neurological: Sensation intact, Motor intact, Reflexes intact, Cranial nerves intact, Alert, Oriented Psychiatric: Affect appropriate, Mood appropriate Interpretation - Radiology Interpretation Radiology Interpretation By: Radiologist Radiology Results: Negative Exam Interpreted: CT Scan - EKG Interpretation Time of EKG #1: 19:36 Rate: Normal Rhythm: Sinus Ectopy: None Moffit: NL ST Segment: Normal Physician Notification - Case Discussed Physician Notified: ddr b Time of Notification: 19:36 Critical Care Note - Critical Care Note Total Time (mins): 0 Course - Course Hematology/Chemistry: 01/17/18 18:39 01/17/18 18:39 Orders, Labs, Meds: Lab Review 01/17/18 01/17/18 01/17/18 18:25 18:39 18:39 WBC 6.14 RBC 4.40 Hgb 12.0 Hct 36.4 L MCV 82.7 MCH 27.3 MCHC 33.0 RDW Coeff of Silvana 13.6 Plt Count 209 Immature Gran % (Auto) 0.2 Neut % (Auto) 71.4 Lymph % (Auto) 17.3 Edmunds % (Auto) 9.8 Eos % (Auto) 0.5 Baso % (Auto) 0.8 Immature Gran # (Auto) 0.0 Neut # (Auto) 4.4 Lymph # (Auto) 1.1 Edmunds # (Auto) 0.6 Eos # (Auto) 0.0 Baso # (Auto) 0.1 Sodium 137 Potassium 4.0 Chloride 103 Carbon Dioxide 21 L Anion Gap 17.0 BUN 33 H Creatinine 1.67 H Estimated GFR (MDRD) 30.00 BUN/Creatinine Ratio 19.76 Glucose 191 H Calcium 11.0 H Total Bilirubin 0.7 AST 15 ALT 12 Alkaline Phosphatase 60 Total Creatine Kinase 66 Troponin I 0.0630 Total Protein 7.7 Albumin 3.7 Globulin 4.0 Albumin/Globulin Ratio 0.93 TSH 0.100 L Urine Color Yellow Urine Clarity Clear Urine pH 5.0 Ur Specific [place] 1.015 Urine Protein Negative Urine Glucose (UA) 2+ Urine Ketones Negative Urine Blood Negative Urine Nitrite Negative Urine Bilirubin Negative Urine Urobilinogen 0.2 Ur Leukocyte Esterase Negative Orders Category Date Time Status EKG-(ED ONLY) Stat CARDIO 01/17/18 18:21 Completed Orthostatic Vital Signs [ED ORTHOSTATIC VITAL SIGNS] . EMERGENCY 01/17/18 18: 22 Active ONCE CBC W/ AUTO DIFF Stat LAB 01/17/18 18:39 Completed COMPREHENSIVE METABOLIC PANEL Stat LAB 01/17/18 18:39 Completed CREATINE KINASE Stat LAB 01/17/18 18:39 Completed THYROID STIMULATING HORMONE Stat LAB 01/17/18 18:39 Completed TROPONIN I Stat LAB 01/17/18 18:39 Completed URINALYSIS C & S IF INDICATED Stat LAB 01/17/18 18:[address] HEAD W/O CONTRAST Stat RADS 01/17/18 18:22 Completed Vital Signs: Temp Pulse Resp BP Pulse Ox 01/17/18 19:22 76 16 156/79 H 97 01/17/18 18:51 89 111/43 L 01/17/18 18:50 74 163/86 H 01/17/18 18:03 97.8 F 74 16 147/70 H 97 Departure - Departure Time of Disposition: 19:36 Disposition: PLACED OBSERVATION Discharge Problem: Orthostasis Instructions: Hypotension (ED) Condition: Stable Pt referred to PMD for follow-up: Yes IPMP verified?: No Allergies/Adverse Reactions: Allergies influenza virus vaccine, specific [Influenza Virus Vacc,Specific] Adverse Reaction (Verified 01/17/18 18:16) Sulfa (Sulfonamide Antibiotics) Adverse Reaction (Verified 01/17/18 18:16) Home Medications: Ambulatory Orders Rivaroxaban [Xarelto] 15 mg PO 1700 11/10/16 Atorvastatin Calcium [Lipitor] 20 mg PO BEDTIME 11/15/17 Sucralfate [Carafate] 1 gm PO ACHS tablet 11/18/17 Insulin Lispro Protamin/Lispro [Humalog Mix 50-50 Kwikpen] 6 unit SQ BID LUNCH & SUPPER 11/24/17 Quetiapine Fumarate [Quetiapine Fumarate ER] 300 mg PO BEDTIME 11/24/17 Canagliflozin [Invokana] 100 mg PO DAILY 12/23/17 Ondansetron HCl [Zofran] 4 mg PO TID PRN #30 tablet 01/07/18 Disposition Discussed With: Patient
[2018-01-17] MEDS ORDERED: ZOFRAN TAB PO PRN (19:40)
[2018-01-17 20:48] VITALS: BMI 35.4
[2018-01-17] MEDS ORDERED: NON-FORMULARY MEDICATION (Clonidine Hcl [Clonidine Hcl] 0.2 MG) PO SCH (21:00)
[2018-01-17] MEDS ORDERED: COREG PO SCH (21:00)
[2018-01-17] MEDS ORDERED: QUETIAPINE FUMARATE 300 MG PO SCH (21:00)
[2018-01-17] MEDS: SODIUM CHLORIDE 1,000 ML IV SCH (21:20)
[2018-01-17] MEDS: LANTUS SUBCUT SCH (21:26)
[2018-01-17] MEDS ORDERED: CATAPRES ONE (21:31)
[2018-01-17] MEDS ORDERED: COREG ONE (21:32)
[2018-01-17] MEDS ORDERED: SEROQUEL ONE (21:33)
[2018-01-17] MEDS: ZESTRIL PO SCH (21:34)
[2018-01-17] MEDS: LIPITOR PO SCH (21:34)
[2018-01-17] MEDS: CARAFATE PO SCH (21:34)
[2018-01-18] MEDS: CARAFATE PO SCH ×4 (05:31→21:21)
[2018-01-18] MEDS ORDERED: SODIUM POLYSTYRENE SULFONATE 15 GM PO SCH (09:00)
[2018-01-18] MEDS ORDERED: NON-FORMULARY MEDICATION (Amlodipine Besylate [Amlodipine Besylate] 10 MG) PO SCH (09:00)
[2018-01-18] MEDS ORDERED: NON-FORMULARY MEDICATION (Potassium Chloride [Klor-Con 10] 10 MEQ) PO SCH (09:00)
[2018-01-18] MEDS ORDERED: NON-FORMULARY MEDICATION (Canagliflozin [Invokana] 100 MG) PO SCH (09:00)
[2018-01-18] MEDS: CATAPRES PO SCH ×2 (09:20→21:21)
[2018-01-18] MEDS: JANUVIA PO SCH (09:21)
[2018-01-18] MEDS: MICRO-K CAP PO SCH (09:21)
[2018-01-18] MEDS: COREG PO SCH ×2 (09:21→17:23)
[2018-01-18] MEDS: NORVASC PO SCH (09:22)
[2018-01-18] MEDS: ZESTRIL PO SCH ×2 (09:23→21:21)
[2018-01-18] MEDS: PROTONIX PO SCH (09:25)
[2018-01-18] MEDS: HUMALOG SUBCUT SCH ×2 (11:22→17:25)
[2018-01-18] MEDS: HUMALOG MIX 75-25 SUBCUT SCH ×2 (11:23→17:25)
[2018-01-18] MEDS ORDERED: LISPRO SQ SCH (12:00)
[2018-01-18] MEDS ORDERED: [UNRECOGNIZED DRUG - OTHER] SQ SCH (12:00)
[2018-01-18] MEDS ORDERED: INSULIN LISPRO PROTAMIN SQ SCH (12:00)
--- NOTE | 2018-01-18 15:19 | RS.PTINEVL ---
Subjective - Patient information Date of Evaluation: 01/18/18 Date of Arrival on Unit: 01/17/18 Admitted From:: Home Diagnosis: orthostasis, hypotension Usual Living Arrangement: Alone Living Arrangement Comments: has help at home that comes in several times a week. Home Environment: Apartment Medical History: Hypertension, CVA/TIA, Diabetes, Cancer (of liver) Medical History Comments:: anxiety, bipolar depression, PUD, CAD, [place], AFib Surgical History: Hysterectomy, CABG Medications: see chart Subjective Information/ Patient Comments:: pt states that she got dizzy at home , reports is new onset. - Level of function Prior to this admission, the patient could do the following:: Independent Ambulation Current Level of Function: Partially Dependent Current Equipment Used at Home: glucometer, shower chair Interventions - Objective Patient Orientation: Person, Place, Time, Situation Current Interventions: IV's, Telemetry Range of Motion - ROM Right Upper Extremity AROM: WFL's Left Upper Extremity AROM: WFL's Right Lower Extremity AROM: WFL's Left Lower Extremity AROM: WFL's Muscle Strength - Muscle Strength Right Upper Extremity Strength: Mild Weakness Left Upper Extremity Strength: Mild Weakness Right Lower Extremity Strength: Mild Weakness (hip flex 4-/5, knee flex/ext 4/5 , ankle DF/PF 4/5) Left Lower Extremity Strength: Mild Weakness (hip flex 4-/5, knee flex/ext 4/5, ankle DF/PF 4/5) Sensation - Sensation Right Upper Extremity Sensation: Intact/Normal Left Upper Extremity Sensation: Impaired (n/t LUE) Right Lower Extremity Sensation: Intact/Normal Left Lower Extremity Sensation: Intact/Normal Palpation Palpation Findings: None/Normal Balance - Sitting Balance and Reactions Static Sitting Balance: Good Dynamic Sitting Balance: Good - Standing Balance and Reactions Static Standing Balance: Fair Dynamic Standing Balance: Poor Standing Equilibrium Reactions: Delayed Left, Delayed Right Standing Protective Reactions: Delayed Left, Delayed Right - Comments Balance Assessment Comments: pt with increased lat sway, decreased step length, Functional Mobility - Bed Mobility Rolling R/L: CGA Supine to Sit: Min Assist - Transfers Sit to Stand: CGA Stand to Sit: CGA - Safety Awareness Safety Awareness: Fair ANA INDEX SCORE: n/a Ambulation - Ambulation Assistive Device Used: Gait belt Orthotic/Prosthetic Device: No Distance: 45ft Assistance needed with Ambulation: CGA, Min Assist, 1 person assist Quality of Ambulation: pt amb with CGA to min x 1 +1 for IV Gait Deviations: Narrow Based gait, Forward posture, Short stride, Deviates from path Ambulation Comments: Feel pt would benefit from amb with rwx to improve balance and safety with gait. Factors Affecting Ambulation: Decreased Balance, Weakness, Dizziness, Decreased Safety, Cognitive Status, Limited Endurance Treatment time - Time with patient Total treatment time: 27 Patient Education - Education Patient Education: Activity Modification, Education of Plan of Care Teaching Recipient: Patient Teaching Methods: Discussion (discussion with pt regarding safety as well as POC ) Assessment - Assessment Problem List:: Decreased level of function, Requires training/education, Decreased safety/Risk of falls, Weakness, Cognitive status limits abilities Rehab Potential: Good Further Therapy Indicated?: Yes Evaluation Complexity: HISTORY: Medium (DM, hypotension, HTN, CVA, bipolar), EXAM OF BODY SYSTEMS: Medium (balance, gait, strength, posture, ), CLINICAL PRESENTATION: Medium (evolving), CLINICAL DECISION MAKING: Medium Short Term Goals GOAL #1: pt demonstrate independence with rolling and scooting in bed. Goal to be met by: 01/21/18 GOAL #2: pt transfer sup to/from sit to/from stand CGA Goal to be met by: 01/21/18 GOAL #3: pt amb with/without AD 75ft with CGA with no LOB Goal to be met by: 01/21/18 Customer Service Representative Teacher Goals GOAL #1: pt transfer sup to/from sit to/from stand SBA to independent Goal to be met by: 01/24/18 GOAL #2: pt amb functional house hold distances with/without AD SBA no LOB Goal to be met by: 01/24/18 GOAL #3: Improve BLE strength 4 to 4+/5 Goal to be met by: 01/24/18 Plan Plan of Care: Therapeutic EX, Therapeutic Activity Other:: gait training Frequency of Treatment: 1-2 X day, as tolerated Duration of Treatment: 6 days Anticipated Discharge Destination: Home Treatment Diagnosis (ICD 10 Codes): R 26.81 balance impaired. R 26.2 difficulty walking Has the Physician been added for Co-signature?: Yes
--- NOTE | 2018-01-18 15:48 | RS.OTINEVL ---
Subjective - Patient information Date of Evaluation: 01/18/18 Date of Arrival on Unit: 01/17/18 Admitted From:: Home Usual Living Arrangement: Alone Living Arrangement Comments: has help at home that comes in several times a week. Home Environment: Apartment Medical History: Hypertension, CVA/TIA, Diabetes, Cancer (of liver) Medical History Comments:: anxiety, bipolar depression, PUD, CAD, [place], AFib Surgical History: Hysterectomy, CABG Surgical History Comments:: CABG, Prostatic pig valve, CA of liver and 90% removed. Medications: see chart Subjective Information/ Patient Comments:: "I have Caregivers 5Xwk for cleaning. " "I have had 3 strokes." - Level of function Prior to this admission, the patient could do the following:: Independent Ambulation Abilities prior to this admission: Pt is walking without a walker, however she would walk better with a RW. Pt has help with a bath on a bath bench. Pt uses a BSC over her toilet. Current Level of Function: Partially Dependent Current Equipment Used at Home: glucometer, shower chair Pain Assessment - Pain Pain Score: 0 Interventions - Objective Patient Orientation: Person, Place, Time, Situation Current Interventions: IV's, Telemetry, Mckeon Catheter Observation: Pt has a flat affect and a stare. Pt is slow to speak. Pt walks with a shuffle and short steps. Interventions - ROM Right Upper Extremity AROM: WFL's Left Upper Extremity AROM: WFL's - Strength Right Upper Extremity Strength: Mild Weakness Left Upper Extremity Strength: Mild Weakness - Sensation Right Upper Extremity Sensation: Intact/Normal Left Upper Extremity Sensation: Intact/Normal Balance - Sitting Balance Static Sitting Balance: Fair Dynamic Sitting Balance: Fair - Standing Balance Static Standing Balance: Fair Dynamic Standing Balance: Fair ADL Skills - Self Feeding Self Feeding: Independent - Grooming Grooming: Set Up Only - Bathing Bathing UE: Set Up Only Bathing LE: CGA (Pt is dizzy and it not able to bend over. ) - Dressing Dressing UE: Independent Dressing LE: Min Assist - Toilet Management Toileting Management: CGA Functional Mobility - Bed Mobility Scooting: CGA Supine to Sit: CGA Sit to Supine: CGA - Transfers Sit to Stand: Min Assist Stand to Sit: Min Assist Stand Pivot Transfers: Min Assist - Ambulation Weight Bearing Status: FWB Assistive Device Used: No Assistive Device Assistance needed with Ambulation: Min Assist ANA INDEX SCORE: . Additional Treatment Performed - Time with patient Total treatment time: 23 Activities Do you have difficulty with your vision?: No Patient Interests:: Watching Television Patient Education Patient Education: Education of diagnosis, Home Exercise Program, Home Safety, Education of Plan of Care Teaching Recipient: Patient Teaching Methods: Discussion Assessment Problem List:: Decreased level of function, Decreased safety/Risk of falls, Weakness Rehab Potential: Good Further Therapy Indicated?: Yes Evaluation Complexity: HISTORY: Medium, EXAM OF BODY SYSTEMS: Medium, CLINICAL DECISION MAKING: Medium Short Term Goals - Goals GOAL 1: Pt to be CGA for sink level ADLS. Goal to be met by: 01/23/18 GOAL 2: Pt to increase BUE strength to 4+/5. Goal to be met by: 01/23/18 GOAL 3: Pt to increase dynamic std. bal. to G-/Fair+. Goal to be met by: 01/23/18 Intermediate Goals GOAL 1: Pt to be (I) for sink level ADLS. Goal to be met by: 01/27/18 GOAL 2: Pt to increase BUE strength to 5/5. Goal to be met by: 01/27/18 GOAL 3: Pt to increase dynamic std. bal. to G+. Goal to be met by: 01/27/18 Plan Plan of Care: Therapeutic EX, Neuromuscular Re-Educ, Therapeutic Activity, Self- Care/Home Management Frequency of Treatment: 1-2 X day, as tolerated Duration of Treatment: 2 Weeks Anticipated Discharge Destination: Home Treatment Diagnosis (ICD 10 Codes): Z74.0 reduced mobility, Z91.81 At risk for falls, Z74.1 Need for assistance with personal care. Has the Physician been added for Co-signature?: Yes
[2018-01-18] MEDS ORDERED: NON-FORMULARY MEDICATION (Rivaroxaban [Xarelto] 15 MG) PO SCH (17:00)
[2018-01-18] MEDS: XARELTO PO SCH (17:23)
[2018-01-18] MEDS: SEROQUEL PO SCH (21:20)
[2018-01-18] MEDS: SODIUM CHLORIDE 1,000 ML IV SCH (21:20)
[2018-01-18] MEDS: LIPITOR PO SCH (21:21)
[2018-01-19] MEDS: LANTUS SUBCUT SCH (05:19)
[2018-01-19] MEDS: CARAFATE PO SCH ×4 (05:36→20:04)
[2018-01-19] MEDS: JANUVIA PO SCH (09:03)
[2018-01-19] MEDS: COREG PO SCH ×2 (09:03→17:22)
[2018-01-19] MEDS: CATAPRES PO SCH ×2 (09:03→20:04)
[2018-01-19] MEDS: PROTONIX PO SCH (09:03)
[2018-01-19] MEDS: MICRO-K CAP PO SCH (09:03)
[2018-01-19] MEDS: ZESTRIL PO SCH ×2 (09:03→20:04)
[2018-01-19] MEDS: NORVASC PO SCH (09:03)
[2018-01-19] MEDS: HUMULIN R SUBCUT PRN ×3 (12:14→20:04)
[2018-01-19] MEDS: XARELTO PO SCH (17:22)
[2018-01-19] MEDS: SEROQUEL PO SCH (20:04)
[2018-01-19] MEDS: LIPITOR PO SCH (20:04)
[2018-01-19] MEDS: SODIUM CHLORIDE 1,000 ML IV SCH (20:06)
[2018-01-19] MEDS ORDERED: LANTUS SUBCUT SCH (21:00)
[2018-01-20] MEDS: PROTONIX PO SCH (05:34)
[2018-01-20] MEDS: CARAFATE PO SCH ×4 (05:34→21:41)
[2018-01-20] MEDS: HUMULIN R SUBCUT PRN ×3 (05:51→21:41)
[2018-01-20] MEDS: MICRO-K CAP PO SCH (09:32)
[2018-01-20] MEDS: NORVASC PO SCH (09:32)
[2018-01-20] MEDS: COREG PO SCH ×2 (09:33→17:27)
[2018-01-20] MEDS: LANTUS SUBCUT SCH (09:33)
[2018-01-20] MEDS: ZESTRIL PO SCH ×2 (09:33→21:40)
[2018-01-20] MEDS: JANUVIA PO SCH (09:33)
[2018-01-20] MEDS: CATAPRES PO SCH ×2 (09:33→21:41)
[2018-01-20] MEDS: SODIUM CHLORIDE 1,000 ML IV SCH ×2 (13:01→21:39)
--- NOTE | 2018-01-20 15:04 | PN ---
DATE OF SERVICE: 01/20/18 SUBJECTIVE: The patient was admitted with acute renal failure, dizziness, light headedness and orthostatic hypotension. Found to have a problem with the sugars. The patient's Lantus been on hold and the sugar been doing good. BUN and creatinine getting improved. REVIEW OF SYSTEMS: CONSTITUTIONAL: No fever, no chills. HEENT: Normal. ENDOCRINE: No weight gain, no weight loss. CVS: No angina symptoms. No CHF symptoms. No palpitations. No atypical chest pain for CAD. No shortness of breath. No PND, no orthopnea. RESPIRATORY: No cough, no hemoptysis. GI: No nausea, no vomiting. No abdominal pain. : No hematuria. No polyuria. MUSCULOSKELETAL: No joint swelling. PSYCHIATRIC: Not anxious. No depression. No suicidal thoughts. No homicidal thoughts. SKIN: Intact. No rash. PHYSICAL EXAMINATION: V/S: Blood pressure 123/66, respiratory rate 20, heart rate 69, temperature 98.7. HEENT: Normocephalic, atraumatic. Mucosa dry. Pallor positive. No icterus. NECK: Supple. No JVD, no carotid bruit. No lymphadenopathy. LUNGS: Decreased and basilar crackles. Clear to auscultation. No rales or rhonchi. HEART: S1, S2 normal. No S3. Systolic murmur, gallop or regurgitation. ABDOMEN: Soft, nontender. Bowel sounds active. No rigidity. No rebound or guarding. No CVA tenderness. EXTREMITIES: No cyanosis, clubbing or pedal edema. MUSCULOSKELETAL: No joint swelling. NEUROLOGIC: Awake, alert, oriented times three. No focal deficit. LYMPHATIC: No lymph nodes palpable. SKIN: Intact. LABS: Sodium 148, potassium 4.3, chloride 112, bicarb 16, BUN 24, creatinine 1.26, glucose 127, WBC 5.86, hgb 10.4, hct 33.1, plt count 90. ASSESSMENT: 1. Acute on chronic renal failure 2. Dizziness 3. Hypoglycemic episodes with insulin being adjusted 4. Diabetes 5. Hypotension 6. Dyslipidemia 7. CAD 8. Status post aortic valve replacement on security and compliance analyst anticoagulation 9. Schizophrenia 10.Depression 11.Osteoarthritis 12.DJD spine PLAN: 1. Start the Lantus 10 units back 2. Regular insulin coverage 3. IV fluids 4. Out of bed to chair activity as tolerated TIME SPENT: More than 35 minutes MTDD
[2018-01-20] MEDS: XARELTO PO SCH (17:27)
[2018-01-20] MEDS: SEROQUEL PO SCH (21:40)
[2018-01-20] MEDS: LIPITOR PO SCH (21:40)
[2018-01-21] MEDS: PROTONIX PO SCH (05:56)
[2018-01-21] MEDS: CARAFATE PO SCH ×4 (05:56→20:51)
[2018-01-21] MEDS: ZESTRIL PO SCH ×2 (08:10→20:51)
[2018-01-21] MEDS: JANUVIA PO SCH (08:10)
[2018-01-21] MEDS: NORVASC PO SCH (08:10)
[2018-01-21] MEDS: MICRO-K CAP PO SCH (08:10)
[2018-01-21] MEDS: CATAPRES PO SCH ×2 (08:10→20:50)
[2018-01-21] MEDS: LANTUS SUBCUT SCH (08:10)
[2018-01-21] MEDS: COREG PO SCH ×2 (08:10→17:05)
[2018-01-21] MEDS: HUMULIN R SUBCUT PRN ×2 (11:44→20:55)
[2018-01-21] MEDS: XARELTO PO SCH (17:06)
[2018-01-21] MEDS: SEROQUEL PO SCH (20:50)
[2018-01-21] MEDS: LIPITOR PO SCH (20:50)
[2018-01-21] MEDS: SODIUM CHLORIDE 1,000 ML IV SCH (22:05)
[2018-01-22] MEDS: CARAFATE PO SCH ×4 (05:30→20:29)
[2018-01-22] MEDS: PROTONIX PO SCH (05:30)
[2018-01-22] MEDS: HUMULIN R SUBCUT PRN ×2 (06:44→10:59)
[2018-01-22] MEDS: MICRO-K CAP PO SCH (08:34)
[2018-01-22] MEDS: JANUVIA PO SCH (08:34)
[2018-01-22] MEDS: LANTUS SUBCUT SCH (08:34)
[2018-01-22] MEDS: COREG PO SCH ×2 (08:34→17:53)
[2018-01-22] MEDS: ZESTRIL PO SCH ×2 (08:34→20:29)
[2018-01-22] MEDS: NORVASC PO SCH (08:34)
[2018-01-22] MEDS: CATAPRES PO SCH ×2 (08:34→20:29)
[2018-01-22] MEDS ORDERED: HUMULIN R SUBCUT PRN ×2 (13:50→13:52)
[2018-01-22] MEDS: XARELTO PO SCH (17:52)
[2018-01-22] MEDS: SEROQUEL PO SCH (20:29)
[2018-01-22] MEDS: LIPITOR PO SCH (20:29)
[2018-01-22] MEDS: SODIUM CHLORIDE 1,000 ML IV SCH (22:00)
[2018-01-23] MEDS: PROTONIX PO SCH (05:29)
[2018-01-23] MEDS: CARAFATE PO SCH ×3 (05:29→16:35)
[2018-01-23] MEDS ORDERED: LANTUS SUBCUT SCH (09:00)
[2018-01-23] MEDS: CATAPRES PO SCH (09:08)
[2018-01-23] MEDS: JANUVIA PO SCH (09:08)
[2018-01-23] MEDS: COREG PO SCH ×2 (09:08→16:35)
[2018-01-23] MEDS: MICRO-K CAP PO SCH (09:08)
[2018-01-23] MEDS: NORVASC PO SCH (09:09)
[2018-01-23] MEDS: ZESTRIL PO SCH (09:09)
--- NOTE | 2018-01-23 10:31 | HP ---
DATE OF SERVICE: 01/17/18 CHIEF COMPLAINT: Weakness and dizziness. HISTORY OF PRESENT ILLNESS: This is a 72 year old female with multiple medical problems who came to the emergency room complaining for becoming weak, not able to be standing, speech is clear, light headed whenever she is getting up so she came to the emergency room through the EMS. She was seen by the ER physician. WBC is normal. Chemistry showed the BUN 33, creatinine 1.62. CT of the head negative for the stroke. The patient had a orthostatic hypotension and the dehydration with the dizziness and the with the multiple medical problems the patient was admitted to the hospital with acute on chronic renal failure, dehydration, dizziness and weakness. REVIEW OF SYSTEMS: CONSTITUTIONAL: No fever, no chills. Weakness and tiredness. HEENT: Normal. ENDOCRINE: No weight gain; no weight loss. CVS: No chest pain. No PND, no orthopnea. Shortness of breath with exertion. No PND, no orthopnea. RESPIRATORY: No cough, no congestion. No hemoptysis. GI: No nausea, no vomiting. No abdominal pain. No melena. Dizziness. Light headedness. : No hematuria. No polyuria. MUSCULOSKELETAL: No joint swelling. PSYCHIATRIC: Not anxious. No depression. No suicidal thoughts. No homicidal thoughts. SKIN: Intact, no open lesions. PAST MEDICAL HISTORY: CAD Status post bypass surgery Aortic valve replacement Aortic prosthetic valve, PIG valve three years ago TIA CVA three times Diverticulosis GERD Osteoarthritis DJD spine Depression Anxiety Bipolar disorder Schizophrenia PAST SURGICAL HISTORY: Hysterectomy Part of the liver has been removed for the Hepatoma Aortic valve replacement PERSONAL HISTORY: The patient does not smoke or drink. Lives at home. MEDICATIONS: Xarelto Coreg Lasix Clonidine Norvasc Lipitor Carafate Humalog Seroquel Insulin Protonix Invokana Sodium Polystyrene Zofran Lisinopril ALLERGIES: Influenza Virus Sulfa drugs PHYSICAL EXAMINATION: V/S: Blood pressure 147/70, respiratory rate16, heart rate 74, temperature 97.8 , saturation is 97 on room air. HEENT: Atraumatic, normocephalic. No scleral icterus. Pallor positive. Mucosa dry. NECK: Supple. No JVD, no bruit. No lymphadenopathy. No thyromegaly. HEART: S1, S2 normal. Systolic murmur. No cyanosis or clubbing. No ascites. LUNGS: Decreased and clear to auscultation. No rales or rhonchi. ABDOMEN: Soft, nontender. Bowel sounds are active. No CVA tenderness. No rigidity or guarding. EXTREMITIES: No pedal edema. No cyanosis or clubbing MUSCULOSKELETAL: Normal joints, no swelling. NEUROLOGIC: The patient is awake and alert SKIN: Intact; no open lesions. LYMPHATIC: No lymph nodes palpable. LABS: Sodium 137, potassium 4.0, chloride 103, bicarb 21, BUN 33, creatinine 1.67, glucose 191, WBC 6.14, hgb 12.0, hct 36.4, chloride 209 ASSESSMENT: 1. Dehydration 2. Acute on chronic renal failure 3. Light headedness 4. Weakness 5. History of Diabetes 6. Hypertension 7. Dyslipidemia 8. CAD 9. Status post bypass surgery 10.Schizophrenia 11.Bipolar. PLAN: 1. Admit the patient to the regular floor 2. CBC and CMP today and daily 3. Cardiac enzymes and Troponin 4. IV fluids 5. Accu-checks with coverage 6. Daily I&O's TIME SPENT: MORE THAN 70 minutes MARGO
--- NOTE | 2018-01-23 10:39 | PN ---
DATE OF SERVICE: 01/18/18 SUBJECTIVE: Hgb from the 12.0 to 10.8 most like from the dilution. The patient is still feeling weak and light headed. Heart rate is 50-54. REVIEW OF SYSTEMS: CONSTITUTIONAL: No fever, no chills. HEENT: Normal. ENDOCRINE: No weight gain, no weight loss. CVS: No angina symptoms. No CHF symptoms. No palpitations. No atypical chest pain for CAD. No shortness of breath. No PND, no orthopnea. RESPIRATORY: No cough, no hemoptysis. GI: No nausea, no vomiting. No abdominal pain. : No hematuria. No polyuria. MUSCULOSKELETAL: No joint swelling. PSYCHIATRIC: Not anxious. No depression. No suicidal thoughts. No homicidal thoughts. SKIN: Intact. No rash. PHYSICAL EXAMINATION: V/S: Blood pressure 119/67, respiratory rate 20, heart rate 54, temperature 97.7 with saturation 100%. HEENT: Normocephalic, atraumatic. Mucosa dry. Pallor positive. No icterus. NECK: Supple. No JVD, no carotid bruit. No lymphadenopathy. LUNGS: Decreased and clear to auscultation. No rales or rhonchi. HEART: S1, S2 normal. No S3. Systolic murmur, gallop or regurgitation. ABDOMEN: Soft, nontender. Bowel sounds active. No rigidity. No rebound or guarding. No CVA tenderness. EXTREMITIES: No cyanosis, clubbing or pedal edema. MUSCULOSKELETAL: No joint swelling. NEUROLOGIC: Awake, alert, oriented times three. No focal deficit. LYMPHATIC: No lymph nodes palpable. SKIN: Intact. LABS: WBC 4.29, hgb 10.8, hct 32.3, plt count 170, sodium 138, potassium 3.5, chloride 106, bicarb 22, BUN 32, creatinine 1.55, glucose 174, calcium 10.3. ASSESSMENT: 1. Acute on chronic renal failure 2. Dizziness 3. Symptomatic bradycardia 4. CAD 5. Status post bypass surgery 6. Aortic valve replacement 7. Diabetes 8. Depression 9. Anxiety 10.Bipolar 11.Schizophrenia 12.Anemia probably from the dilution PLAN: 1. Continue the IV fluids 2. Daily I&O's 3. Accu-checks with coverage 4. Out of bed to chair with help TIME SPENT: More than 35 minutes MTDD
--- NOTE | 2018-01-23 11:35 | PN ---
DATE OF SERVICE: 01/19/18 SUBJECTIVE: The patient's sugars have been lower so we have been holding the Lantus insulin. The patient was getting well coverage with 75 three times. Sugars were around 110-140 so the Lantus was not given. Eating good and says that she is still feeling weak. REVIEW OF SYSTEMS: CONSTITUTIONAL: No fever, no chills. HEENT: Normal. ENDOCRINE: No weight gain, no weight loss. CVS: No angina symptoms. No CHF symptoms. No palpitations. No atypical chest pain for CAD. No shortness of breath. No PND, no orthopnea. RESPIRATORY: No cough, no hemoptysis. GI: No nausea, no vomiting. No abdominal pain. : No hematuria. No polyuria. MUSCULOSKELETAL: No joint swelling. PSYCHIATRIC: Not anxious. No depression. No suicidal thoughts. No homicidal thoughts. SKIN: Intact. No rash. PHYSICAL EXAMINATION: V/S: blood pressure 111/57, respiratory rate 16, heart rate 60, temperature 97.9 with saturation 98%. HEENT: Normocephalic, atraumatic. Mucosa dry. Pallor positive. No icterus. NECK: Supple. No JVD, no carotid bruit. No lymphadenopathy. LUNGS: Decreased and clear to auscultation. No rales or rhonchi. HEART: S1, S2 normal. No S3. Systolic murmur, gallop or regurgitation. ABDOMEN: Soft, nontender. Bowel sounds active. No rigidity. No rebound or guarding. No CVA tenderness. EXTREMITIES: No cyanosis, clubbing or pedal edema. MUSCULOSKELETAL: No joint swelling. NEUROLOGIC: Awake, alert, oriented times three. No focal deficit. LYMPHATIC: No lymph nodes palpable. SKIN: Intact. LABS: WBC 5.85, hgb 11.1, hct 35.5, plt count 151, sodium 139, potassium 3.9, chloride 109, bicarb 19, BUN 28, creatinine 1.38 and glucose 137. ASSESSMENT: 1. Acute on chronic renal failure 2. Dizziness which is better 3. Hypoglycemia, Lantus is on hold now 4. Aortic valve replacement, snf anticoagulation 5. Schizophrenia 6. Bipolar PLAN: 1. Change the Lantus 75 to the regular insulin coverage 2. Continue to hold the Lantus 3. Accu-checks AC and HS 4. Out of bed to chair activity as tolerated TIME SPENT: More than 35 minutes MTDD
[2018-01-23 14:41] VITALS: BP 151/68; TEMP 98.5
--- NOTE | 2018-01-23 15:02 | PN ---
DATE OF SERVICE: 01/21/18 SUBJECTIVE: The patient was admitted with symptomatic bradycardia and acute on chronic renal failure and dizziness. Found out that patient been having the low sugars at home. Lantus is on hold. Restart the Lantus at 10 units. Still with the regular insulin coverage the patient was getting the Lantus at this time which was held today morning again. This was discussed with the patient and will stop the patient's regular insulin coverage and go with only the Lantus 10 units and will see. Discussed the same with the patient. REVIEW OF SYSTEMS: CONSTITUTIONAL: No fever, no chills. HEENT: Normal. ENDOCRINE: No weight gain, no weight loss. CVS: No angina symptoms. No CHF symptoms. No palpitations. No atypical chest pain for CAD. No shortness of breath. No PND, no orthopnea. RESPIRATORY: No cough, no hemoptysis. GI: No nausea, no vomiting. No abdominal pain. : No hematuria. No polyuria. MUSCULOSKELETAL: No joint swelling. PSYCHIATRIC: Not anxious. No depression. No suicidal thoughts. No homicidal thoughts. SKIN: Intact. No rash. PHYSICAL EXAMINATION: V/S: blood pressure 129/79, respiratory rate 15, heart rate 56, temperature 97.7 with saturation 99%. HEENT: Normocephalic, atraumatic. Mucosa dry. pallor positive. No icterus. NECK: Supple. No JVD, no carotid bruit. No lymphadenopathy. LUNGS: Decreased. Clear to auscultation. No rales or rhonchi. HEART: S1, S2 normal. No S3. Systolic murmur, gallop or regurgitation. ABDOMEN: Soft, nontender. Bowel sounds active. No rigidity. No rebound or guarding. No CVA tenderness. EXTREMITIES: No cyanosis, clubbing or pedal edema. MUSCULOSKELETAL: No joint swelling. NEUROLOGIC: Awake, alert, oriented times three. No focal deficit. LYMPHATIC: No lymph nodes palpable. SKIN: Intact. LABS: WBC 5.32, hgb 10.2, hct 31.5, plt count 133, sodium 140, potassium 3.9, chloride 112, bicarb 20, BUN 19, creatinine 1.03, glucose 143. ASSESSMENT: 1. Hypoglycemia 2. Acute on chronic renal failure 3. Dizziness 4. Light headedness 5. CAD 6. CHF 7. Bypass surgery 8. Aortic valve replacement 9. Schizophrenia 10.Depression 11.Anxiety PLAN: 1. Stop the regular insulin coverage 2. Continue with the Lantus 10 units SUBCUT daily 3. Out of bed to chair activity as tolerated TIME SPENT: More than 35 minutes MTDD
[2018-01-23] MEDS: XARELTO PO SCH (16:35)
--- NOTE | 2018-02-13 10:00 | DS ---
DATE OF SERVICE: 01/23/18 FINAL DIAGNOSIS: 1. ACUTE ON CHRONIC RENAL FAILURE 2. DIZZINESS PROBABLY FROM THE HYPOGLYCEMIC EPISODE 3. HYPOGLYCEMIA, INSULIN BEING CHANGED 4. DIABETES 5. HYPERTENSION 6. DYSLIPIDEMIA 7. OSTEOARTHRITIS 8. DJD SPINE 9. HISTORY OF AORTIC VALVE REPLACEMENT 10. CORONARY ARTERY DISEASE 11. BYPASS SURGERY 12. SCHIZOPHRENIA 13. BIPOLAR DISORDER DISCHARGE INSTRUCTIONS: 1. Discharge the patient home. 2. Return to see Dr. Liu in his office 01/26/18 at 1 p.m. 3. Monitor your blood sugars before meals and at bedtime at home. Keep a log of the results and bring this log to your followup appointment in case your medications require adjustment. MEDICATIONS AT DISCHARGE: Norvasc 10 mg p.o. daily Coreg 12.5 mg twice a day Clonidine 0.2 mg twice a day Lisinopril 40 mg b.i.d. Protonix 40 mg p.o. daily Lipitor Seroquel Xarelto Lasix every other day Lantus 14 units subcut daily Potassium Januvia NEW PRESCRIPTIONS: Lasix 20 mg p.o. MoWeFr Insulin, Lantus, 14 unit subcut daily Potassium Chloride 10 mEq p.o. MoWeFr Januvia 50 mg p.o. daily Do not resume Invokana Please note that the Lasix is every other day DIET INSTRUCTIONS: Diabetic and cardiac diet ACTIVITY: Plenty of rest and gradually resume activity as tolerated. DISEASE SPECIFIC EDUCATION: Hypoglycemia, diabetes have been discussed, verbalized understanding. HOSPITAL COURSE: The patient, came in initially with weakness, tiredness and dizziness, found to have acute on chronic renal failure with BUN 33, creatinine 1.67. Sugar was 191. White count was normal. Urine did not show any infection. She was admitted to the hospital then started having problems with sugars. They were gradually going down. Lantus 40 units twice a day, 48 units at bedtime along with Humalog 50/50 with coverage which is being held. I changed it to Lantus 10 units and no coverage. Gradually sugars are getting better, around 150 to 170. Lantus was increased to 14 units. She did not have any complications during the hospital stay, up and about walking. BUN and creatinine were better, 24 and 1.26 today. The patient is feeling much better per patient. As the patient was feeling good with no complications, the patient is being discharged home. TIME SPENT: MORE THAN 65 MINUTES MTDD
--- NOTE | 2018-02-14 18:30 | PN ---
DATE OF SERVICE: 01/22/18 SUBJECTIVE: The patient has been on Lantus 10 units along with coverage if sugars are more than 250. The patient had sugar of more than 200 and we are covering her. This morning the sugar was 246. She is up and about walking, did not have any problems but some shortness of breath with exertion. REVIEW OF SYSTEMS: CONSTITUTIONAL: No fever, no chills. HEENT: Normal. ENDOCRINE: No weight gain, no weight loss. CVS: No angina symptoms. No CHF symptoms. No palpitations. No atypical chest pain for CAD. No shortness of breath. No PND, no orthopnea. RESPIRATORY: No cough, no hemoptysis. GI: No nausea, no vomiting. No abdominal pain. : No hematuria. No polyuria. MUSCULOSKELETAL: No joint swelling. PSYCHIATRIC: Not anxious. No depression. No suicidal thoughts. No homicidal thoughts. SKIN: Intact. No rash. PHYSICAL EXAMINATION: V/S: BP 111/64, respiratory rate 16, heart rate 59, temperature 97.8, saturation 97. HEENT: Normocephalic, atraumatic. Mucosa dry, pallor positive. No icterus. NECK: Supple. No JVD, no carotid bruit. No lymphadenopathy. LUNGS: Clear to auscultation. No rales or rhonchi. HEART: S1, S2 normal. No S3. No murmur, gallop or regurgitation. ABDOMEN: Soft, nontender. Bowel sounds active. No rigidity. No rebound or guarding. No CVA tenderness. EXTREMITIES: No cyanosis, clubbing or pedal edema. MUSCULOSKELETAL: No joint swelling. NEUROLOGIC: Awake, alert, oriented times three. No focal deficit. LYMPHATIC: No lymph nodes palpable. SKIN: Intact. LABS: White count 5.32, hemoglobin 10.2, hematocrit 31.4, platelet count 133. Sodium 140, potassium 3.9, chloride 112, bicarb 19, creatinine 1.03, glucose 143. ASSESSMENT: 1. ACUTE RENAL FAILURE 2. UNCONTROLLED DIABETES 3. HYPOGLYCEMIC EPISODES 4. DIZZINESS 5. HISTORY OF AORTIC VALVE REPLACEMENT WITH PROSTHETIC PIG VALVE 6. SCHIZOPHRENIA 7. BIPOLAR DISORDER 8. DIABETES, LABILE 9. OSTEOARTHRITIS 10. DJD SPINE PLAN: 1. Increase Lantus to 14 units 2. Increase coverage if sugars are more than 250 3. Out of bed to chair 4. Activity as tolerated TIME SPENT: More than 35 minutes MTDD
== END 2018-01-23 18:04 | disposition home or self-care (01) | DRG 684 ==
LOC: ED 18:02 → SCU 19:44 → OBSVTOIN 19:45 → MEDSURG B 01-18 19:36
PROVIDERS: ADMIT Emergency Medicine; ATTEND Emergency Medicine
DX: N17.9 Acute kidney failure, unspecified (principal); N18.9 Chronic kidney disease, unspecified; I95.1 Orthostatic hypotension; R42 Dizziness and giddiness; I12.9 Hypertensive chronic kidney disease with stage 1 through stage 4 chronic kidney disease, or unspecified chronic kidney disease; E11.22 Type 2 diabetes mellitus with diabetic chronic kidney disease; R53.1 Weakness; I48.91 Unspecified atrial fibrillation; I10 Essential (primary) hypertension; E78.5 Hyperlipidemia, unspecified; M19.90 Unspecified osteoarthritis, unspecified site; M47.9 Spondylosis, unspecified; I25.10 Atherosclerotic heart disease of native coronary artery without angina pectoris; F20.9 Schizophrenia, unspecified; F31.9 Bipolar disorder, unspecified; F32.9 Major depressive disorder, single episode, unspecified; E11.649 Type 2 diabetes mellitus with hypoglycemia without coma; T38.3X5A Adverse effect of insulin and oral hypoglycemic [antidiabetic] drugs, initial encounter; Y92.230 Patient room in hospital as the place of occurrence of the external cause; R00.1 Bradycardia, unspecified; D64.9 Anemia, unspecified; I25.2 Old myocardial infarction; Z95.1 Presence of aortocoronary bypass graft; Z95.2 Presence of prosthetic heart valve; Z86.73 Personal history of transient ischemic attack (TIA), and cerebral infarction without residual deficits; Z79.4 Long term (current) use of insulin; Z79.01 Long term (current) use of anticoagulants; Z87.891 Personal history of nicotine dependence
CPT/HCPCS: 36415; 80053; 81001; 82550; 82962; 84439; 84443; 84481; 84484; 85025; 93005; 93010; 99223; 99233; 99239; 99284

== ENCOUNTER 2018-01-27 20:24 | Inpatient (IN) ==
--- NOTE | 2018-01-27 20:41 | ED.PDOC ---
General ED Provider: Dr. LORRAINE BARRIGA-ER Chief Complaint: Weakness Stated Complaint: im so weak when i try to stand up i pass out Time Seen by Physician: 20:38 Mode of Arrival: Ambulance Information Source: Patient, EMT Exam Limitations: No limitations Primary Care Provider: JUAN MANUEL [facility] Nursing and Triage Documentation Reviewed and Agree: Yes Reviewed sepsis parameters & appropriate labs ordered?: Yes System Inflammatory Response Syndrome: Not Applicable Sepsis Protocol: For patient's 13 years and over: Temp is 96.8 and below OR 101 and greater Pulse >90 BPM Resp >20/minute Acutely Altered Mental Status Are patient's symptoms suggestive of a new infection, such as: -Pneumonia -Skin, Soft Tissue -Endocarditis -UTI -Bone, Joint Infection -Implantable Device -Acute Abdominal Infection -Wound Infection -Meningitis -Blood Stream Catheter Infection -Unknown Miscellaneous Complaint Exam - Complex/Multi-System Complaint/Exam Onset/Duration: today Symptoms Are: Still present Initial Severity: Mild Current Severity: None Associated Signs and Symptoms: Reports: Weakness, Decreased oral intake, Anticoagulation Therapy. Denies: Decreased responsiveness, Confusion, Agitation , Dizziness, Syncope, Headache, Short of air, Cough, Wheezing, Hemoptysis, Chest pain, Palpitations, Edema, Nausea, Vomiting, Diarrhea, Abdominal pain, Back pain, Dysuria, Hematemesis, Melena, Fever, Diaphoresis Related History: Recent Illness Recent Echo/LV Function: No Respiratory Distress: None JVD Present: No Tachypnea Present: No Stridor Present: No Abdominal Findings: Present: Normal findings Meningeal Signs Positive: No Focal Weakness: Present: None Focal Sensory Loss: Present: None Gait: Unsteady Gag Reflex Present: Yes Skin Findings: Present: Normal findings Joint Swelling Present: No In-Dwelling Device Present: No Differential Diagnosis: Metabolic Abnormality, Other Quality Indicator For Non-Traumatic Chest Pain/Syncope: EKG Performed Review of Systems - Review Of Systems Constitutional: Reports: Weakness Eyes: Reports: No symptoms Ears, Nose, Mouth, Throat: Reports: No symptoms Respiratory: Reports: No symptoms Cardiac: Reports: No symptoms GI: Reports: No symptoms : Reports: No symptoms Musculoskeletal: Reports: No symptoms Skin: Reports: No symptoms Neurological: Reports: Weakness Endocrine: Reports: No symptoms Hematologic/Lymphatic: Reports: No symptoms All Other Systems: Reviewed and Negative Past Medical History - Past Medical History Previously Healthy: No Endocrine: Reports: DM 1, Dyslipidemia Cardiovascular: Reports: CAD, OR, Hypertension, A-Fib, Other Respiratory: Reports: None Hematological: Reports: None Gastrointestinal: Reports: PUD, Liver Genitourinary: Reports: None Neuro/Psych: Reports: TIA, CVA, Anxiety, Depression, Bipolar Disorder Musculoskeletal: Reports: Arthritis Cancer: Reports: Other (LIVER) Last Menstrual Period: na Other Pertinent Past Medical History: cabg ulcer hyst - Surgical History General Surgical History: Reports: Hysterectomy, CABG, Other (Atrial flutter/ fib paroxysmal. Prosthetic pig valve, aortic. CA of the liver, 90% removed. ) - Family History Family History: Reports: Unknown - Social History Smoking Status: Former smoker Hx Substance Use: No Alcohol Screening: None - Immunizations Tetanus Shot up to Date: Yes Physical Exam - Physical Exam Appearance: Well-appearing, No pain distress, Well-nourished Eyes: [place]KE, EOMI, Conjunctiva clear ENT: Ears normal, Nose normal, Oropharynx normal Neck: Supple Respiratory: Airway patent, Breath sounds clear, Breath sounds equal, Respirations nonlabored Cardiovascular: RRR, Pulses normal, No rub, No murmur GI/: Tender Musculoskeletal: Normal strength, ROM intact, No edema, No calf tenderness Skin: Warm, Dry, Normal color Neurological: Sensation intact Psychiatric: Affect appropriate, Mood appropriate Interpretation - EKG Interpretation Time of EKG #1: 20:42 Rate: Normal Rhythm: Sinus Ectopy: None [place]: NL ST Segment: Normal Interpretation: no acute changes Physician Notification - Case Discussed Physician Notified: dr hyman Critical Care Note - Critical Care Note Total Time (mins): 0 Course - Course Hematology/Chemistry: 01/27/18 20:45 01/27/18 20:45 Orders, Labs, Meds: Lab Review 01/27/18 01/27/18 01/27/18 20:25 20:45 20:45 WBC 4.91 RBC 4.21 Hgb 11.5 L Hct 35.1 L MCV 83.4 MCH 27.3 MCHC 32.8 RDW Coeff of Silvana 13.4 Plt Count 199 Immature Gran % (Auto) 0.4 Neut % (Auto) 66.3 Lymph % (Auto) 19.3 [place] % (Auto) 12.0 H Eos % (Auto) 1.0 Baso % (Auto) 1.0 Immature Gran # (Auto) 0.0 Neut # (Auto) 3.3 Lymph # (Auto) 1.0 [place] # (Auto) 0.6 Eos # (Auto) 0.1 Baso # (Auto) 0.1 Puncture Site Rr O2 Saturation 97.0 ABG pH 7.451 H ABG pCO2 37.9 ABG pO2 82.0 L ABG HCO3 26.4 H ABG Total CO2 28 ABG Base Excess 2 [place] Test + FiO2 % 21.0 Sodium 138 Potassium 4.1 Chloride 103 Carbon Dioxide 23 Anion Gap 16.1 BUN 26 H Creatinine 1.40 H Estimated GFR (MDRD) 37.00 BUN/Creatinine Ratio 18.57 Glucose 232 H Calcium 10.6 H Total Bilirubin 0.5 AST 7 L ALT 14 Alkaline Phosphatase 55 Total Protein 7.4 Albumin 3.3 L Globulin 4.1 Albumin/Globulin Ratio 0.80 Orders Category Date Time Status ABG DRAW REQUEST Stat CARDIO 01/27/18 20:26 Completed EKG-(ED ONLY) Stat CARDIO 01/27/18 20:25 Completed Dining Room Supervisor [ED BUCKLE STRAP PUNCHER APPLIED] .ONCE EMERGENCY 01/27/18 20:26 Active IV [ED IV/MEDIPORT/POWERPORT] .ONCE EMERGENCY 01/27/18 20:26 Active Orthostatic [ED ORTHOSTATIC VITAL SIGNS] .ONCE EMERGENCY 01/27/18 20:26 Active ABG Stat LAB 01/27/18 20:25 Completed CBC W/ AUTO DIFF Stat LAB 01/27/18 20:45 Completed COMPREHENSIVE METABOLIC PANEL Stat LAB 01/27/18 20:45 Completed CREATINE KINASE Stat LAB 01/27/18 20:45 Received TROPONIN I Stat LAB 01/27/18 20:45 Received TSH [THYROID STIMULATING HORMONE] Stat LAB 01/27/18 20:45 Received URINALYSIS C & S IF INDICATED Stat LAB 01/27/18 21:16 Ordered 0.9 % Sodium Chloride [Saline Flush] MEDS 01/27/18 20:26 Ordered 1 syr IVF PRN PRN Medications Generic Name Dose Route Start Last Admin Trade Name Freq PRN Reason Stop Dose Admin Sodium Chloride 1 syr 01/27/18 20:26 Saline Flush IVF PRN PRN To flush IV Vital Signs: Temp Pulse Resp BP Pulse Ox 01/27/18 20:36 73 85/47 L 01/27/18 20:35 70 96/60 01/27/18 20:34 63 133/62 01/27/18 20:25 97.3 F L 62 14 133/62 98 Departure - Departure Time of Disposition: 21:17 Disposition: PLACED OBSERVATION Discharge Problem: Orthostasis Instructions: Hypotension (ED) Condition: Good Pt referred to PMD for follow-up: Yes IPMP verified?: No Allergies/Adverse Reactions: Allergies influenza virus vaccine, specific [Influenza Virus Vacc,Specific] Adverse Reaction (Verified 01/17/18 18:16) Sulfa (Sulfonamide Antibiotics) Adverse Reaction (Verified 01/17/18 18:16) Home Medications: Ambulatory Orders Rivaroxaban [Xarelto] 15 mg PO 1700 11/10/16 Atorvastatin Calcium [Lipitor] 20 mg PO BEDTIME 11/15/17 Sucralfate [Carafate] 1 gm PO ACHS tablet 11/18/17 Quetiapine Fumarate [Quetiapine Fumarate ER] 300 mg PO BEDTIME 11/24/17 Ondansetron HCl [Zofran] 4 mg PO TID PRN #30 tablet 01/07/18 Furosemide [Lasix Tab] 20 mg PO MOWEFR 30 Days tablet 01/23/18 Insulin Glargine,Hum.rec.anlog [Lantus] 14 unit SUBCUT BEDTIME 30 Days ml 01/23 Potassium Chloride [Micro-K Cap] 10 meq PO MOWEFR 30 Days capsule.er 01/23/18 Sitagliptin Phosphate [Januvia] 50 mg PO DAILY #30 tab 01/23/18 Disposition Discussed With: Patient
[2018-01-27] MEDS ORDERED: ZOFRAN TAB PO PRN (21:20)
[2018-01-27] MEDS ORDERED: MICRO-K CAP PO SCH (21:30)
[2018-01-27 22:20] VITALS: BMI 35.5
[2018-01-28] MEDS: CARAFATE PO SCH ×4 (06:44→21:17)
[2018-01-28] MEDS: SODIUM CHLORIDE 1,000 ML IV SCH ×2 (07:10→22:21)
[2018-01-28] MEDS ORDERED: SODIUM POLYSTYRENE SULFONATE 15 GM PO SCH (09:00)
[2018-01-28] MEDS ORDERED: JANUVIA PO SCH (09:00)
[2018-01-28] MEDS: HUMULIN R SUBCUT PRN ×3 (11:43→21:14)
[2018-01-28] MEDS ORDERED: ZOFRAN TAB PO PRN (12:00)
[2018-01-28] MEDS: PROTONIX PO SCH (12:17)
[2018-01-28] MEDS ORDERED: ZOFRAN TAB PO STA ×2 (15:24→20:56)
[2018-01-28] MEDS: ZOFRAN TAB PO SCH ×2 (15:27→21:16)
[2018-01-28] MEDS ORDERED: NON-FORMULARY MEDICATION (Rivaroxaban [Xarelto] 15 MG) PO SCH (17:00)
[2018-01-28] MEDS ORDERED: CARAFATE PO STA ×2 (17:28→20:55)
[2018-01-28] MEDS ORDERED: COREG PO SCH (17:30)
[2018-01-28] MEDS ORDERED: LANTUS SUBCUT STA (20:55)
[2018-01-28] MEDS ORDERED: LANTUS SUBCUT SCH (21:00)
[2018-01-28] MEDS ORDERED: LIPITOR PO SCH (21:00)
[2018-01-28] MEDS ORDERED: QUETIAPINE FUMARATE 300 MG PO SCH (21:00)
[2018-01-29] MEDS ORDERED: CARAFATE PO STA (05:42)
[2018-01-29] MEDS: PROTONIX PO SCH (06:09)
[2018-01-29] MEDS: HUMULIN R SUBCUT PRN (06:10)
[2018-01-29] MEDS: CARAFATE PO SCH ×4 (06:14→22:48)
[2018-01-29] MEDS: JANUVIA PO SCH (08:56)
[2018-01-29] MEDS: COREG PO SCH ×2 (08:56→16:59)
[2018-01-29] MEDS: ZOFRAN TAB PO SCH ×2 (08:57→15:23)
[2018-01-29] MEDS: SODIUM CHLORIDE 1,000 ML IV SCH ×2 (09:03→22:03)
[2018-01-29] MEDS: ZESTRIL PO SCH (15:23)
[2018-01-29] MEDS: XARELTO PO SCH (16:57)
[2018-01-29] MEDS ORDERED: ZOFRAN 4 MG/2 ML IVP PRN (21:39)
[2018-01-29] MEDS: SEROQUEL PO SCH (22:49)
[2018-01-29] MEDS: LIPITOR PO SCH (22:50)
[2018-01-29] MEDS: LANTUS SUBCUT SCH (22:53)
[2018-01-30] MEDS: ZOFRAN TAB PO SCH (02:06)
[2018-01-30] MEDS: PROTONIX PO SCH (06:10)
[2018-01-30] MEDS: CARAFATE PO SCH ×4 (06:10→20:45)
[2018-01-30] MEDS: JANUVIA PO SCH (08:50)
[2018-01-30] MEDS: MICRO-K CAP PO SCH (08:50)
[2018-01-30] MEDS: ZESTRIL PO SCH (08:50)
[2018-01-30] MEDS: COREG PO SCH ×2 (08:50→17:16)
[2018-01-30] MEDS: SODIUM CHLORIDE 1,000 ML IV SCH ×2 (11:23→23:36)
[2018-01-30] MEDS: XARELTO PO SCH (17:15)
[2018-01-30] MEDS: HUMULIN R SUBCUT PRN ×2 (18:04→20:43)
[2018-01-30] MEDS: LANTUS SUBCUT SCH (20:43)
[2018-01-30] MEDS: SEROQUEL PO SCH (20:45)
[2018-01-30] MEDS: LIPITOR PO SCH (20:45)
[2018-01-31] MEDS: SODIUM CHLORIDE 1,000 ML IV SCH ×2 (01:54→12:46)
[2018-01-31] MEDS: PROTONIX PO SCH (05:30)
[2018-01-31] MEDS: CARAFATE PO SCH ×4 (05:30→22:33)
[2018-01-31] MEDS: COREG PO SCH ×2 (08:44→17:28)
[2018-01-31] MEDS: ZESTRIL PO SCH (08:44)
[2018-01-31] MEDS: XARELTO PO SCH (17:27)
[2018-01-31] MEDS: HUMULIN R SUBCUT PRN (17:36)
[2018-01-31] MEDS: LANTUS SUBCUT SCH (22:32)
[2018-01-31] MEDS: LIPITOR PO SCH (22:33)
[2018-01-31] MEDS: SEROQUEL PO SCH (22:33)
[2018-02-01] MEDS: SODIUM CHLORIDE 1,000 ML IV SCH (01:31)
[2018-02-01] MEDS: CARAFATE PO SCH (06:06)
[2018-02-01] MEDS: PROTONIX PO SCH (06:06)
[2018-02-01] MEDS: HUMULIN R SUBCUT PRN (06:11)
[2018-02-01 06:20] VITALS: TEMP 97.8
[2018-02-01 07:01] VITALS: BP 119/69
[2018-02-01] MEDS ORDERED: K-DUR PO STA (08:22)
[2018-02-01] MEDS: MICRO-K CAP PO SCH (08:50)
[2018-02-01] MEDS: ZESTRIL PO SCH (08:50)
[2018-02-01] MEDS: COREG PO SCH (08:51)
--- NOTE | 2018-02-01 08:58 | PN ---
DATE OF SERVICE: 01/31/18 SUBJECTIVE: The patient is sitting in bed, states she is not feeling better. No headache. No nausea or vomiting. No constipation. No diarrhea. Blood pressure has been okay, sugars are good. No energy. REVIEW OF SYSTEMS: CONSTITUTIONAL: No fever, no chills. HEENT: Normal. ENDOCRINE: No weight gain, no weight loss. CVS: No angina symptoms. No CHF symptoms. No palpitations. No atypical chest pain for CAD. No shortness of breath. No PND, no orthopnea. RESPIRATORY: No cough, no hemoptysis. GI: No nausea, no vomiting. No abdominal pain. : No hematuria. No polyuria. MUSCULOSKELETAL: No joint swelling. PSYCHIATRIC: Not anxious. No depression. No suicidal thoughts. No homicidal thoughts. SKIN: Intact. No rash. PHYSICAL EXAMINATION: V/S: BP 165/84, respiratory rate 18, heart rate 81, temperature 97.9, saturation 98. HEENT: Normocephalic, atraumatic. Mucosa dry. Pallor positive. No icterus. NECK: Supple. No JVD, no carotid bruit. No lymphadenopathy. LUNGS: Decreased entry. Clear to auscultation. No rales or rhonchi. HEART: S1, S2 normal. No S3. No murmur, gallop or regurgitation. ABDOMEN: Soft, nontender. Bowel sounds active. No rigidity. No rebound or guarding. No CVA tenderness. EXTREMITIES: No cyanosis, clubbing or pedal edema. MUSCULOSKELETAL: No joint swelling. NEUROLOGIC: Awake, alert. LYMPHATIC: No lymph nodes palpable. SKIN: Intact. LABS: White count 5.81, hemoglobin 11.0, hematocrit 33.0, platelet count 181. Sodium 140, potassium 4.1, chloride 110, bicarb 18, BUN 15, creatinine 1.10. ASSESSMENT: 1. STATUS POST DEHYDRATION 2. ORTHOSTATIC HYPOTENSION WHICH HAS IMPROVED 3. DIABETES MELLITUS 4. HYPERTENSION 5. DYSLIPIDEMIA 6. AORTIC VALVE REPLACEMENT 7. DETENTION ANTICOAGULATION 8. SCHIZOPHRENIA 9. BIPOLAR DISORDER PLAN: 1. Will go ahead and give patient Risperdal 50 mg IM today 2. Continue potassium 3. IV fluids 4. Daily I & O's 5. Fall precautions 6. The patient has been nauseous, was not eating good since yesterday but will make sure she eats some food today. As the risk of falling sugars are there, the patient did have that kind of episode one month before, sugars were going down and the patient was not able to eat any food. TIME SPENT: More than 55 minutes MTDD
--- NOTE | 2018-02-01 12:54 | PN ---
DATE OF SERVICE: 01/30/18 SUBJECTIVE: The patient is not feeling good today, doesn't want to get up and walk. The patient is due for her Risperdal shot which she gets every month. REVIEW OF SYSTEMS: CONSTITUTIONAL: No fever, no chills. HEENT: Normal. ENDOCRINE: No weight gain, no weight loss. CVS: No angina symptoms. No CHF symptoms. No palpitations. No atypical chest pain for CAD. No shortness of breath. No PND, no orthopnea. RESPIRATORY: No cough, no hemoptysis. GI: No nausea, no vomiting. No abdominal pain. : No hematuria. No polyuria. MUSCULOSKELETAL: No joint swelling. PSYCHIATRIC: Not anxious. No depression. No suicidal thoughts. No homicidal thoughts. SKIN: Intact. No rash. PHYSICAL EXAMINATION: V/S: BP 154/71, respiratory rate 20, heart rate 71, temperature 98, saturation 97. HEENT: Normocephalic, atraumatic. Mucosa dry, pallor positive. No icterus. NECK: Supple. No JVD, no carotid bruit. No lymphadenopathy. LUNGS: Decreased and clear to auscultation. No rales or rhonchi. HEART: S1, S2 normal. No S3. No murmur, gallop or regurgitation. ABDOMEN: Soft, nontender. Bowel sounds active. No rigidity. No rebound or guarding. No CVA tenderness. EXTREMITIES: No cyanosis, clubbing or pedal edema. MUSCULOSKELETAL: No joint swelling. NEUROLOGIC: Awake, alert, oriented times three. No focal deficit. LYMPHATIC: No lymph nodes palpable. SKIN: Intact. LABS: Sodium 140, potassium 4.1, chloride 110, bicarb 18, BUN 15, creatinine 1.10, glucose 145. White count 5.81, hemoglobin 11.0, hematocrit 33.0, platelet count 181. ASSESSMENT: 1. DIZZINESS 2. ORTHOSTATIC HYPOTENSION 3. HISTORY OF DIABETES 4. HYPERTENSION 5. DYSLIPIDEMIA 6. SCHIZOPHRENIA 7. OSTEOARTHRITIS 8. DJD SPINE 9. ANTICOAGULATION 10. AORTIC VALVE REPLACEMENT 11. DEHYDRATION PLAN: 1. Continue IV fluids 2. Pantoprazole 3. Risperdal IM 4. IV fluids 5. Daily I & O's TIME SPENT: More than 35 minutes MTDD
--- NOTE | 2018-02-01 13:04 | PN ---
DATE OF SERVICE: 01/29/18 SUBJECTIVE: The patient is admitted with orthostatic hypotension and dizziness. The patient is feeling weak today and does not want to walk. She is feeling dizzy when she walks. BP is not dropping that much when she stands up with orthostasis. REVIEW OF SYSTEMS: CONSTITUTIONAL: Weakness, dizziness. No fever, no chills. HEENT: Normal. ENDOCRINE: No weight gain, no weight loss. CVS: No angina symptoms. No CHF symptoms. No palpitations. No atypical chest pain for CAD. No shortness of breath. No PND, no orthopnea. RESPIRATORY: No cough, no hemoptysis. GI: No nausea, no vomiting. No abdominal pain. : No hematuria. No polyuria. MUSCULOSKELETAL: No joint swelling. PSYCHIATRIC: Not anxious. No depression. No suicidal thoughts. No homicidal thoughts. SKIN: Intact. No rash. PHYSICAL EXAMINATION: V/S: BP 141/66, respiratory rate 20, heart rate 54, saturation 98 on room air. Afebrile. HEENT: Normocephalic, atraumatic. Mucosa dry. Pallor positive. No icterus. NECK: Supple. No JVD, no carotid bruit. No lymphadenopathy. LUNGS: Decreased air entry. Clear to auscultation. No rales or rhonchi. HEART: S1, S2 normal. No S3. No murmur, gallop or regurgitation. ABDOMEN: Soft, nontender. Bowel sounds active. No rigidity. No rebound or guarding. No CVA tenderness. EXTREMITIES: No cyanosis, clubbing or pedal edema. MUSCULOSKELETAL: No joint swelling. NEUROLOGIC: Awake, alert, oriented times three. No focal deficit. LYMPHATIC: No lymph nodes palpable. SKIN: Intact. LABS: White count 5.81, hemoglobin 11.0, hematocrit 33.0. Platelet count 181. Sodium 141, potassium 4.1, chloride 110, bicarb 18, BUN 15, creatinine 1.10, glucose 140. ASSESSMENT: 1. DIZZINESS 2. ORTHOSTATIC HYPOTENSION 3. ACUTE RENAL FAILURE 4. DEHYDRATION 5. HISTORY OF AORTIC VALVE REPLACEMENT 6. CUSTODIAL ANTICOAGULATION 7. AORTIC STENOSIS 8. DIABETES 9. HYPERTENSION 10. DYSLIPIDEMIA 11. SCHIZOPHRENIA 12. BIPOLAR DISORDER PLAN: 1. Continue Accu-Cheks with the coverage 2. IV fluids 3. Resume home medication 4. Lisinopril 40 mg p.o. daily 5. Will start giving Zofran for nausea and vomiting TIME SPENT: More than 35 minutes MTDD
--- NOTE | 2018-02-24 10:58 | PN ---
DATE OF SERVICE: 01/28/18 SUBJECTIVE: The patient was admitted from the emergency room for the dehydration and orthostatic hypertension. The patient is more awake and alert today. REVIEW OF SYSTEMS: CONSTITUTIONAL: No fever, no chills. HEENT: Normal. ENDOCRINE: No weight gain, no weight loss. CVS: No angina symptoms. No CHF symptoms. No palpitations. No atypical chest pain for CAD. No shortness of breath. No PND, no orthopnea. RESPIRATORY: No cough, no hemoptysis. GI: No nausea, no vomiting. No abdominal pain. : No hematuria. No polyuria. MUSCULOSKELETAL: No joint swelling. PSYCHIATRIC: Not anxious. No depression. No suicidal thoughts. No homicidal thoughts. SKIN: Intact. No rash. PHYSICAL EXAMINATION: V/S: Blood pressure 122/59, respiratory rate 18, heart rate 54, temperature 97.8 with saturation 98%. GENERAL: Sick looking lady laying in the bed and not in any distress. HEENT: Normocephalic, atraumatic. Mucosa dry. Pallor positive. No icterus. NECK: Supple. No JVD, no carotid bruit. No lymphadenopathy. LUNGS: Clear to auscultation. No rales or rhonchi. HEART: S1, S2 normal. No S3. Systolic murmur, gallop or regurgitation. ABDOMEN: Soft, nontender. Bowel sounds active. No rigidity. No rebound or guarding. No CVA tenderness. EXTREMITIES: No cyanosis, clubbing or pedal edema. MUSCULOSKELETAL: No joint swelling. NEUROLOGIC: Awake, alert, oriented times three. No focal deficit. LYMPHATIC: No lymph nodes palpable. SKIN: Intact. LABS: WBC 4.77, hgb 11.4, hct 33.3, plt count 189, sodium 140, potassium 4.9, chloride 108, bicarb 22, BUN 22, creatinine 1.2, glucose 180. ASSESSMENT: 1. Orthostatic hypertension 2. Dehydration 3. Acute on chronic renal failure 4. Diabetes 5. Aortic valve replacement 6. Prosthetic valve 7. termite treater helper anticoagulation 8. Depression 9. Bipolar disorder PLAN: 1. Continue the IV fluids 2. Breathing treatment 3. Daily I&O's TIME SPENT: More than 35 minutes MTDD
--- NOTE | 2018-03-01 09:24 | DS ---
DATE OF SERVICE: 02/01/18 FINAL DIAGNOSIS: 1. STATUS POST DEHYDRATION 2. ORTHOSTATIC HYPOTENSION 3. CHRONIC NAUSEA 4. HISTORY OF DIABETES 5. HYPERTENSION 6. DYSLIPIDEMIA 7. CAD 8. ATRIAL FIBRILLATION ON XARELTO 9. STATUS POST AORTIC VALVE REPLACEMENT 10. HISTORY OF HEPATOMA S/P PARTIAL HEPATECTOMY 11. SCHIZOPHRENIA 12. BIPOLAR 13. DEPRESSION DISCHARGE INSTRUCTIONS: 1. Discharge home 2. Followup appointment at the [facility] within 4 to 5 days 3. Drink more fluids 4. Fall precautions have been discussed MEDICATIONS AT DISCHARGE: Risperdal IM q.two weekly Xarelto Carvedilol Clonidine Amlodipine Lipitor Carafate Quetiapine Fumarate Protonix Sulfonate Zofran Lisinopril Lasix Lantus Micro-K Januvia NEW PRESCRIPTIONS: None DIET INSTRUCTIONS: Diabetic and Cardiac ACTIVITY: As much as tolerated DISEASE SPECIFIC EDUCATION: Dehydration and weight loss have been discussed HOSPITAL COURSE: This 72-year-old female with multiple medical problems, schizophrenia and bipolar came to the emergency room feeling weak, tired, dizziness, found to be hypotensive. Blood pressure 133/62, acute on chronic renal failure with BUN 26, creatinine 1.40. The patient did have orthostastic hypotension. The patient was getting up and blood pressure dropping to 120's. At that time, the patient was admitted to the hospital, started on IV fluids. Gradually BUN and creatinine were getting better. The patient was up and about, started walking. The patient' s blood pressure medications were on hold. Gradually they were resumed again. Hospital course was uneventful. Labs became normal. The patient was due for Risperdol today. The patient was discharged home. Up and about walking, no more dizziness. Strictly advised to have fluids, verbalized understanding. The patient will be followed at the [facility] very closely. Cortisol level has been negative. TIME SPENT: MORE THAN 65 MINUTES MTDD
--- NOTE | 2018-03-01 13:13 | HP ---
DATE OF SERVICE: 01/27/18 CHIEF COMPLAINT/HISTORY OF PRESENT ILLNESS: The patient came back to the emergency room feeling weakness and tired and dizziness. The patient being admitted admitted to the hospital for the orthostatic hypertension, weakness and dehydration. REVIEW OF SYSTEMS: CONSTITUTIONAL: No fever, no chills. Weakness, dizziness and tired. HEENT: Normal. ENDOCRINE: No weight gain; no weight loss. CVS: No chest pain. No PND, no orthopnea. No shortness of breath. No PND, no orthopnea. RESPIRATORY: No cough, no congestion. No hemoptysis. GI: No nausea, no vomiting. No abdominal pain. No melena. : No hematuria. No polyuria. MUSCULOSKELETAL: No joint swelling. PSYCHIATRIC: Not anxious. No depression. No suicidal thoughts. No homicidal thoughts. SKIN: Intact, no open lesions. PAST MEDICAL HISTORY: CAD Status post bypass surgery Aortic valve replacement Aortic prosthetic valve, PIG valve three years ago TIA CVA three times Diverticulosis GERD Osteoarthritis DJD spine Depression Anxiety Bipolar disorder Schizophrenia PAST SURGICAL HISTORY: Hysterectomy Part of the liver has been removed for the Hepatoma Aortic valve replacement PERSONAL HISTORY: The patient does not smoke or drink. Lives at home. MEDICATIONS: Xarelto Carvedilol Clonidine Amlodipine Lipitor Carafate Quetiapine Fumarate ER Protonix Sodium Polystyrene Zofran Lisinopril Lasix Lantus Micro-K cap Januvia ALLERGIES: Influenza virus Sulfa drugs PHYSICAL EXAMINATION: V/S: Blood pressure 133/62, respiratory rate 14, heart rate 62, temperature 97.3 and pulse ox 98%. HEENT: Atraumatic, normocephalic. No scleral icterus. Pallor positive. Mucosa dry. NECK: Supple. No JVD, no bruit. No lymphadenopathy. No thyromegaly. HEART: S1, S2 normal. No murmur. No cyanosis or clubbing. No ascites. LUNGS: Decreased air entry. Clear to auscultation. No rales or rhonchi. ABDOMEN: Soft, nontender. Bowel sounds are active. No CVA tenderness. No rigidity or guarding. EXTREMITIES: No pedal edema. No cyanosis or clubbing MUSCULOSKELETAL: Normal joints, no swelling. NEUROLOGIC: The patient is awake and alert. SKIN: Intact; no open lesions. LYMPHATIC: No lymph nodes palpable. LABS: WBC 4.91, hgb 11.5, hct 35.1, plt count 199, Sodium 138, potassium 4.1, chloride 130, bicarb 23, BUN 26, creatinine 1.40 and glucose 232. ASSESSMENT: 1. Orthostatic hypertension 2. Dehydration 3. Acute on chronic renal failure 4. Diabetes 5. Aortic valve replacement 6. Prosthetic valve 7. MCC anticoagulation 8. Depression 9. Bipolar disorder PLAN: 1. Admit 2. IV fluids 75ml per hour 3. Daily I&O's 4. Continue home medications. 5. Hold Clonidine, Amlodipine and Lasix. 6. Breathing treatments. TIME SPENT: MORE THAN 70 minutes MTDD
== END 2018-02-01 11:07 | disposition home health service (06) | DRG 312 ==
LOC: ED 20:24 → MEDSURG B 21:28 → OBSVTOIN 21:30 → INTOOBSV 01-28 13:59
PROVIDERS: ADMIT Emergency Medicine; ATTEND Emergency Medicine
DX: I95.1 Orthostatic hypotension (principal); E86.0 Dehydration; R11.0 Nausea; E10.9 Type 1 diabetes mellitus without complications; Z79.4 Long term (current) use of insulin; Z79.84 Long term (current) use of oral hypoglycemic drugs; E78.5 Hyperlipidemia, unspecified; I25.10 Atherosclerotic heart disease of native coronary artery without angina pectoris; Z87.891 Personal history of nicotine dependence; I25.2 Old myocardial infarction; I11.9 Hypertensive heart disease without heart failure; I48.91 Unspecified atrial fibrillation; K27.9 Peptic ulcer, site unspecified, unspecified as acute or chronic, without hemorrhage or perforation; Z86.73 Personal history of transient ischemic attack (TIA), and cerebral infarction without residual deficits; F41.8 Other specified anxiety disorders; F31.9 Bipolar disorder, unspecified; M19.90 Unspecified osteoarthritis, unspecified site; Z85.05 Personal history of malignant neoplasm of liver; Z95.1 Presence of aortocoronary bypass graft; F20.9 Schizophrenia, unspecified
CPT/HCPCS: 36415; 80053; 81001; 82024; 82533; 82550; 82803; 82962; 84443; 84484; 85025; 87081; 93005; 93010; 97802; 99220; 99233; 99239; 99284

== ENCOUNTER 2018-02-09 08:44 | Emergency (ER) | payer OTHER ==
[2018-02-09 08:50] VITALS: BP 115/59; TEMP 97.6; BMI 34.3
--- NOTE | 2018-02-09 09:12 | ED.PDOC ---
General ED Provider: Dr. LORRAINE CAMACHO Chief Complaint: Fall Stated Complaint: CC: I slipped and fell to the floor. HPI: Patient states at approximately 6:00AM she was sitting up in a chair and got up to go to bathroom , was not wearing her socks and apparently slipped and fell to the floor. Not sure if she was dizzy or lost her balance. Denies striking her head. Landed on her buttocks falling to the floor. Could not get up and layed on the floor until her day time caregiver arrived at 8AM. Is a Insulin Dependent Diabetic and has not checked her BS,not eaten or taken her insulin this morning. Currently states she's doing ok. Time Seen by Physician: 08:45 Mode of Arrival: Ambulance Information Source: Patient Exam Limitations: No limitations Primary Care Provider[facility] Nursing and Triage Documentation Reviewed and Agree: Yes Reviewed sepsis parameters & appropriate labs ordered?: No System Inflammatory Response Syndrome: Not Applicable Sepsis Protocol: For patient's 13 years and over: Temp is 96.8 and below OR 101 and greater Pulse >90 BPM Resp >20/minute Acutely Altered Mental Status Are patient's symptoms suggestive of a new infection, such as: -Pneumonia -Skin, Soft Tissue -Endocarditis -UTI -Bone, Joint Infection -Implantable Device -Acute Abdominal Infection -Wound Infection -Meningitis -Blood Stream Catheter Infection -Unknown Musculoskeletal Complaint Exam - Hip/Pelvis Complaint/Exam Location of Pain: Reports: Pelvis Mechanism of Injury: Reports: Trauma Onset/Duration: earlier today Symptoms Are: Resolved Initial Severity: Moderate Current Severity: None Location: Reports: Diffuse Character: Reports: Aching Aggravating: Reports: Movement, Weight bearing Alleviating: Reports: Rest Associated Signs and Symptoms: Reports: Weakness. Denies: Swelling, Redness, Bruising, Fever, Dizziness, Syncope, Abdominal pain, Knee pain Related History: Denies: Similar episode, Occupational injury Able to Bear Weight: No Septic Arthritis Risk Factors: Reports: None Related Surgical History: Reports: None Pelvis Palpation: Stable Hip/Pelvis Findings: Absent: Extremity shortened, Swelling, Ecchymosis, Erythema , Warmth, Blisters Tenderness: Absent: Right, Left Range of Motion Limited In: Absent: Flexion, Extension, Abduction, Adduction, Internal rotation, External rotation (Good ROM BL LE) NV Bundle Intact Distal to Injury: No Differential Diagnoses: Contusion, Strain Review of Systems - Review Of Systems Constitutional: Reports: No symptoms Eyes: Reports: No symptoms Ears, Nose, Mouth, Throat: Reports: No symptoms Respiratory: Reports: No symptoms Cardiac: Reports: No symptoms GI: Reports: No symptoms : Reports: No symptoms Musculoskeletal: Reports: No symptoms Skin: Reports: No symptoms Neurological: Reports: No symptoms Endocrine: Reports: No symptoms Hematologic/Lymphatic: Reports: No symptoms All Other Systems: Reviewed and Negative Past Medical History - Past Medical History Previously Healthy: No Endocrine: Reports: DM 1, Dyslipidemia Cardiovascular: Reports: CAD, PR, Hypertension, A-Fib, Other Respiratory: Reports: None Hematological: Reports: None Gastrointestinal: Reports: PUD, Liver Genitourinary: Reports: None Neuro/Psych: Reports: TIA, CVA, Anxiety, Depression, Bipolar Disorder Musculoskeletal: Reports: Arthritis Cancer: Reports: Other (LIVER) Last Menstrual Period: unknown Other Pertinent Past Medical History: cabg ulcer hyst - Surgical History General Surgical History: Reports: Hysterectomy, CABG, Other (Atrial flutter/ fib paroxysmal. Prosthetic pig valve, aortic. CA of the liver, 90% removed. ) - Family History Family History: Reports: Unknown - Social History Smoking Status: Former smoker Hx Substance Use: No Alcohol Screening: None Physical Exam - Physical Exam Appearance: Well-appearing, No pain distress, Well-nourished Eyes: DUKE, EOMI, Conjunctiva clear ENT: Ears normal, Nose normal, Oropharynx normal Respiratory: Airway patent, Breath sounds clear, Breath sounds equal, Respirations nonlabored Cardiovascular: RRR, Pulses normal, No rub, No murmur GI/: Soft, Nontender, No masses, Bowel sounds normal, No Organomegaly Musculoskeletal: Normal strength, ROM intact, No edema, No calf tenderness Skin: Warm, Dry, Normal color Neurological: Sensation intact, Motor intact, Reflexes intact, Cranial nerves intact, Alert, Oriented Psychiatric: Affect appropriate, Mood appropriate Interpretation - Radiology Interpretation Radiology Interpretation By: Radiologist Radiology Results: Negative Exam Interpreted: CT Scan (Lumbar spine and pelvis) Re-Evaluation - Re-Evaluation Time of Re-Evaluation: 10:05 Status: Improved Vital Signs Stable: Yes Appearance: NAD Lungs: Clear Skin: Warm and Dry Neuro: Alert and Oriented X3 CV: RRR Critical Care Note - Critical Care Note Total Time (mins): 0 Course - Course Hematology/Chemistry: 02/09/18 09:25 02/09/18 09:25 Orders, Labs, Meds: Lab Review 02/09/18 02/09/18 09:25 09:25 WBC 8.03 RBC 4.41 Hgb 12.3 Hct 36.1 L MCV 81.9 MCH 27.9 MCHC 34.1 RDW Coeff of Silvana 14.0 Plt Count 216 Immature Gran % (Auto) 0.2 Neut % (Auto) 83.9 Lymph % (Auto) 7.5 L [place] % (Auto) 7.8 Eos % (Auto) 0.1 Baso % (Auto) 0.5 Immature Gran # (Auto) 0.0 Neut # (Auto) 6.7 Lymph # (Auto) 0.6 [place] # (Auto) 0.6 Eos # (Auto) 0.0 Baso # (Auto) 0.0 Sodium 139 Potassium 4.0 Chloride 103 Carbon Dioxide 20 L Anion Gap 20.0 BUN 38 H Creatinine 1.93 H Estimated GFR (MDRD) 25.00 BUN/Creatinine Ratio 19.68 Glucose 185 H Calcium 10.8 H Total Bilirubin 0.8 AST 13 L ALT 11 L Alkaline Phosphatase 56 Total Creatine Kinase 75 Total Protein 7.4 Albumin 3.5 Globulin 3.9 Albumin/Globulin Ratio 0.90 Orders Category Date Time Status EKG-(ED ONLY) Stat CARDIO 02/09/18 09:13 Completed CBC W/ AUTO DIFF Stat LAB 02/09/18 09:25 Completed COMPREHENSIVE METABOLIC PANEL Stat LAB 02/09/18 09:25 Completed CPK [CREATINE KINASE] Stat LAB 02/09/18 09:25 Completed UA [URINALYSIS C & S IF INDICATED] Stat LAB 02/09/18 09:[address] LUMBAR SPINE W/O CONTRAST Stat RADS 02/09/18 09:[address] PELVIS W/O CONTRAST Stat RADS 02/09/18 09:13 Completed Vital Signs: Temp Pulse Resp BP Pulse Ox 02/09/18 08:45 97.6 F 71 20 115/59 L 96 Departure - Departure Time of Disposition: 10:15 Disposition: HOME SELF-CARE Discharge Problem: Falling episodes, Diabetes Instructions: Fall Prevention for Older Adults (ED) Condition: Good Pt referred to PMD for follow-up: Yes (Dr Jimenez in next 5 days) IPMP verified?: No Additional Instructions: Remain on diabetic diet plus existing meds Use cane or walker to assist ambulation at home Allergies/Adverse Reactions: Allergies influenza virus vaccine, specific [Influenza Virus Vacc,Specific] Adverse Reaction (Verified 02/09/18 08:52) Sulfa (Sulfonamide Antibiotics) Adverse Reaction (Verified 02/09/18 08:52) Home Medications: Ambulatory Orders Rivaroxaban [Xarelto] 15 mg PO 1700 11/10/16 Atorvastatin Calcium [Lipitor] 20 mg PO BEDTIME 11/15/17 Sucralfate [Carafate] 1 gm PO ACHS tablet 11/18/17 Quetiapine Fumarate [Quetiapine Fumarate ER] 300 mg PO BEDTIME 11/24/17 Ondansetron HCl [Zofran] 4 mg PO TID PRN #30 tablet 01/07/18 Furosemide [Lasix Tab] 20 mg PO MOWEFR 30 Days tablet 01/23/18 Insulin Glargine,Hum.rec.anlog [Lantus] 14 unit SUBCUT BEDTIME 30 Days ml 01/23 Potassium Chloride [Micro-K Cap] 10 meq PO MOWEFR 30 Days capsule.er 01/23/18 Sitagliptin Phosphate [Januvia] 50 mg PO DAILY #30 tab 01/23/18 Disposition Discussed With: Patient
--- NOTE | 2018-02-09 10:04 | CT ---
EXAM: CT scan lumbar spine HISTORY: Fall COMPARISON: None. FINDINGS: Contiguous axial images obtained through the lumbar spine utilizing 3-mm collimation. Sag ittal and coronal reconstructions were imaged and reviewed. The vertebral bodies normal in height. T here is 2 mm degenerative anterolisthesis L4/L5. Facet joints are intact.. There is multilevel non compressive annular disc bulge with facet arthropathy. At L4-L5 there is moderate concentric disc bu lge with ligamentum flavum and facet hypertrophy triangulate the central canal and narrowing both bety ral foramen. Degenerative changes noted anteriorly about both SI joints. IMPRESSION: No acute findings.
--- NOTE | 2018-02-09 10:05 | CT ---
EXAM: CT Pelvis without contrast. HISTORY: Initial presentation for pelvic trauma due to a fall. COMPARISON: 12/30/2017. TECHNIQUE: Multiple axial images of the pelvis were obtained without intravenous contrast. Images w ere reformatted in the coronal and sagittal plane. FINDINGS: Please note that evaluation of the pelvic soft tissue structures is limited due to lack of intravenous contrast. Bone mineralization is decreased. Cannot exclude mild avascular necrosis of both femoral heads. No ramesh articular surface collapse of the femoral heads identified. Appearance is similar to the prior study. Hip joint spaces are maintained although mild marginal osteophyte formation noted bilaterall y. No erosions are seen. Osteoarthritis of the sacroiliac joints noted. Lower lumbar degenerative changes are incompletely imaged. The soft tissues of the pelvis are unremarkable. Atherosclerotic calcifications noted IMPRESSION: No acute fracture or dislocation.
== END 2018-02-09 11:29 | disposition home or self-care (01) ==
LOC: ED 08:44
DX: R10.2 Pelvic and perineal pain (principal); R29.6 Repeated falls; R53.1 Weakness; E10.9 Type 1 diabetes mellitus without complications; W01.0XXA Fall on same level from slipping, tripping and stumbling without subsequent striking against object, initial encounter; E78.5 Hyperlipidemia, unspecified; I10 Essential (primary) hypertension; I25.810 Atherosclerosis of coronary artery bypass graft(s) without angina pectoris; C22.8 Malignant neoplasm of liver, primary, unspecified as to type; I25.2 Old myocardial infarction; Z79.899 Other long term (current) drug therapy; Z86.73 Personal history of transient ischemic attack (TIA), and cerebral infarction without residual deficits
CPT/HCPCS: 36415; 80053; 82550; 85025; 93005; 93010; 99284

== ENCOUNTER 2018-02-10 11:53 | Outpatient (CLI) ==
[2018-02-09 08:50] VITALS: BMI 34.3
== END 2018-02-10 12:15 | disposition short-term general hospital (02) ==
LOC: AMBL 11:53
PROVIDERS: ATTEND Internal Medicine
DX: R53.1 Weakness (principal); I95.9 Hypotension, unspecified

== ENCOUNTER 2018-02-16 15:03 | Inpatient (IN) | payer OTHER ==
--- NOTE | 2018-02-16 15:53 | ED.PDOC ---
General ED Provider: Dr. LORRAINE CAMACHO Chief Complaint: Altered Mental Status Stated Complaint: 72 Y/O FEMALE WHO RESIDES BY SELF IN AN APARTMENT FELT WEAK WITH DIFFICULTY GETTING UP SO CALLED 911 FOR ASSISTANCE AND WAS BROUGHT HERE FOR EVALUATION. DENIES OTHER COMPLAINTS. Time Seen by Physician: 15:15 Mode of Arrival: Walk-In Information Source: Patient Exam Limitations: Clinical condition Primary Care Provider[facility] and Triage Documentation Reviewed and Agree: Yes Reviewed sepsis parameters & appropriate labs ordered?: Yes System Inflammatory Response Syndrome: Not Applicable Sepsis Protocol: For patient's 13 years and over: Temp is 96.8 and below OR 101 and greater Pulse >90 BPM Resp >20/minute Acutely Altered Mental Status Are patient's symptoms suggestive of a new infection, such as: -Pneumonia -Skin, Soft Tissue -Endocarditis -UTI -Bone, Joint Infection -Implantable Device -Acute Abdominal Infection -Wound Infection -Meningitis -Blood Stream Catheter Infection -Unknown Miscellaneous Complaint Exam - Complex/Multi-System Complaint/Exam Onset/Duration: FOR SEVERAL WEEKS Symptoms Are: Still present Episodes Lasting: Hours Initial Severity: Moderate Current Severity: Moderate Associated Signs and Symptoms: Reports: Decreased responsiveness, Confusion, Weakness Respiratory Distress: None JVD Present: No Tachypnea Present: No Abdominal Findings: Present: Normal findings Meningeal Signs Positive: No Focal Weakness: Present: None Focal Sensory Loss: Present: None Gait: Unsteady Gag Reflex Present: No Babinski Sign: Negative Right, Negative Left Skin Findings: Present: Normal findings Joint Swelling Present: No In-Dwelling Device Present: No Review of Systems - Review Of Systems Constitutional: Reports: Weakness, Loss of appetite Ears, Nose, Mouth, Throat: Reports: No symptoms Respiratory: Reports: No symptoms, Cough Cardiac: Reports: No symptoms GI: Reports: No symptoms : Reports: No symptoms Musculoskeletal: Reports: Muscle pain, Other (WEAKNESS) Skin: Reports: No symptoms Neurological: Reports: Weakness All Other Systems: Reviewed and Negative Past Medical History - Past Medical History Previously Healthy: No Endocrine: Reports: DM 1, Dyslipidemia Cardiovascular: Reports: CAD, [place], Hypertension, A-Fib, Other Respiratory: Reports: None Hematological: Reports: None Gastrointestinal: Reports: PUD, Liver Genitourinary: Reports: None Neuro/Psych: Reports: TIA, CVA, Anxiety, Depression, Bipolar Disorder Musculoskeletal: Reports: Arthritis Cancer: Reports: Other (LIVER) Last Menstrual Period: N/A Other Pertinent Past Medical History: cabg ulcer hyst - Surgical History General Surgical History: Reports: Hysterectomy, CABG, Other (Atrial flutter/ fib paroxysmal. Prosthetic pig valve, aortic. CA of the liver, 90% removed. ) - Family History Family History: Reports: Unknown - Social History Smoking Status: Former smoker Hx Substance Use: No Alcohol Screening: None - Immunizations Tetanus Shot up to Date: Yes Physical Exam - Physical Exam Appearance: Well-appearing, No pain distress, Well-nourished Eyes: DUKE, EOMI, Conjunctiva clear ENT: Ears normal, Nose normal, Oropharynx normal Respiratory: Airway patent, Breath sounds clear, Breath sounds equal, Respirations nonlabored Cardiovascular: RRR, Pulses normal, No rub, No murmur GI/: Soft, Nontender, No masses, Bowel sounds normal, No Organomegaly Musculoskeletal: Normal strength, ROM intact, No edema, No calf tenderness Skin: Warm, Dry, Normal color Neurological: Sensation intact, Motor intact, Reflexes intact, Cranial nerves intact, Alert, Oriented Psychiatric: Affect appropriate, Mood appropriate Re-Evaluation - Re-Evaluation Status: Unchanged Vital Signs Stable: Yes Appearance: NAD Lungs: Clear Skin: Warm and Dry Neuro: Alert and Oriented X3 CV: RRR Critical Care Note - Critical Care Note Total Time (mins): 60 Course - Course Hematology/Chemistry: 02/16/18 16:10 02/16/18 16:10 Orders, Labs, Meds: Lab Review 02/16/18 02/16/18 02/16/18 16:10 16:10 16:24 WBC 4.59 L RBC 4.42 Hgb 12.2 Hct 35.9 L MCV 81.2 MCH 27.6 MCHC 34.0 RDW Coeff of Silvana 14.4 Plt Count 222 Immature Gran % (Auto) 0.2 Neut % (Auto) 73.9 Lymph % (Auto) 13.7 [place] % (Auto) 11.1 H Eos % (Auto) 0.2 Baso % (Auto) 0.9 Immature Gran # (Auto) 0.0 Neut # (Auto) 3.4 Lymph # (Auto) 0.6 [place] # (Auto) 0.5 Eos # (Auto) 0.0 Baso # (Auto) 0.0 ESR 7 Sodium 139 Potassium 3.9 Chloride 104 Carbon Dioxide 22 L Anion Gap 16.9 BUN 21 H Creatinine 1.29 Estimated GFR (MDRD) 40.00 BUN/Creatinine Ratio 16.27 Glucose 168 H Calcium 11.1 H Total Bilirubin 0.7 AST 16 ALT 17 Alkaline Phosphatase 51 L Total Creatine Kinase 136 CK-MB (CK-2) 3.6 CK-MB (CK-2) % 2.97152 Total Protein 7.3 Albumin 3.5 Globulin 3.8 Albumin/Globulin Ratio 0.92 Urine Color Yellow Urine Clarity Clear Urine pH 5.0 Ur Specific [place] 1.015 Urine Protein Negative Urine Glucose (UA) 2+ Urine Ketones 1+ Urine Blood Trace-intact Urine Nitrite Negative Urine Bilirubin Negative Urine Urobilinogen 0.2 Ur Leukocyte Esterase Negative Urine Microscopic RBC 0-2 Ur Squamous Epith Cells 5-10 Hyaline Casts 2-5 Orders Category Date Time Status EKG-(ED ONLY) Stat CARDIO 02/16/18 15:59 Completed CBC W/ AUTO DIFF Stat LAB 02/16/18 16:10 Completed CMP [COMPREHENSIVE METABOLIC PANEL] Stat LAB 02/16/18 16:10 Completed CPK [CREATINE KINASE] Stat LAB 02/16/18 16:10 Completed ESR Stat LAB 02/16/18 16:10 Completed UA [URINALYSIS C & S IF INDICATED] Stat LAB 02/16/18 16:24 Completed Vital Signs: Temp Pulse Resp BP Pulse Ox 02/16/18 15:04 97.7 F 80 16 160/100 H 97 Departure - Departure Time of Disposition: 17:40 Disposition: ADMITTED INPATIENT Discharge Problem: Dehydration, Altered mental status, Alteration consciousness, Hypercalcemia Condition: Fair Pt referred to PMD for follow-up: Yes (DR Liu) [facility] verified?: No Allergies/Adverse Reactions: Allergies influenza virus vaccine, specific [Influenza Virus Vacc,Specific] Adverse Reaction (Verified 02/16/18 15:07) Sulfa (Sulfonamide Antibiotics) Adverse Reaction (Verified 02/16/18 15:07) Home Medications: Ambulatory Orders Rivaroxaban [Xarelto] 15 mg PO 1700 11/10/16 Atorvastatin Calcium [Lipitor] 20 mg PO BEDTIME 11/15/17 Sucralfate [Carafate] 1 gm PO ACHS tablet 11/18/17 Quetiapine Fumarate [Quetiapine Fumarate ER] 300 mg PO BEDTIME 11/24/17 Ondansetron HCl [Zofran] 4 mg PO TID PRN #30 tablet 01/07/18 Furosemide [Lasix Tab] 20 mg PO MOWEFR 30 Days tablet 01/23/18 Insulin Glargine,Hum.rec.anlog [Lantus] 14 unit SUBCUT BEDTIME 30 Days ml 01/23 Potassium Chloride [Micro-K Cap] 10 meq PO MOWEFR 30 Days capsule.er 01/23/18 Sitagliptin Phosphate [Januvia] 50 mg PO DAILY #30 tab 01/23/18 Disposition Discussed With: Patient
[2018-02-16] MEDS ORDERED: SODIUM CHLORIDE 1,000 ML IV STA (17:48)
[2018-02-16] MEDS ORDERED: LOVENOX SUBCUT SCH (18:00)
[2018-02-16 18:32] VITALS: BMI 32.3
[2018-02-16] MEDS ORDERED: ZOFRAN TAB PO PRN (20:45)
[2018-02-16] MEDS ORDERED: QUETIAPINE FUMARATE 300 MG PO SCH (21:00)
[2018-02-16] MEDS ORDERED: COREG PO SCH (21:00)
[2018-02-16] MEDS ORDERED: LANTUS SUBCUT SCH (21:00)
[2018-02-16] MEDS ORDERED: SEROQUEL ONE (21:02)
[2018-02-16] MEDS: CARAFATE PO SCH (21:04)
[2018-02-16] MEDS: LIPITOR PO SCH (21:04)
[2018-02-16] MEDS: ZESTRIL PO SCH (21:05)
[2018-02-17] MEDS: CARAFATE PO SCH ×4 (06:02→21:14)
--- NOTE | 2018-02-17 07:36 | DI ---
EXAM: Chest one view, frontal view only. HISTORY: Dyspnea on exertion. COMPARISON: 11/16/2017. FINDINGS: Sternotomy wires and sternal plate and screw fixation noted. Heart size is at the upper l imits of normal. No consolidation, pleural effusion or pneumothorax identified. Calcified pleural p laquing noted bilaterally. The lungs otherwise clear without pleural effusion or pneumothorax. [place] radiopaque objects from the patient's clothing are noted. No acute osseous abnormality detected . IMPRESSION: No acute cardiopulmonary process.
[2018-02-17] MEDS ORDERED: K-DUR PO STA (07:40)
[2018-02-17] MEDS: LASIX TAB PO SCH (08:43)
[2018-02-17] MEDS: NORVASC PO SCH (08:43)
[2018-02-17] MEDS: COREG PO SCH ×2 (08:43→17:32)
[2018-02-17] MEDS: JANUVIA PO SCH (08:44)
[2018-02-17] MEDS: ZESTRIL PO SCH ×2 (08:44→21:14)
[2018-02-17] MEDS: MICRO-K CAP PO SCH (08:44)
[2018-02-17] MEDS: PROTONIX PO SCH (08:45)
[2018-02-17] MEDS ORDERED: SODIUM POLYSTYRENE SULFONATE 15 GM PO SCH (09:00)
[2018-02-17] MEDS ORDERED: NON-FORMULARY MEDICATION (Amlodipine Besylate [Amlodipine Besylate] 10 MG) PO SCH (09:00)
--- NOTE | 2018-02-17 13:08 | HP ---
DATE OF SERVICE: 02/16/18 HISTORY OF PRESENT ILLNESS: The patient was recently discharged from [facility] for weakness, tiredness and recurrent falls. She went home, started feeling weak and tired, had one to two falls, did not injure herself. She was very lethargic and went to the emergency room via EMT. The patient was weak and worn out. BP 160/100. Dr. Young saw the patient. BUN 21, creatinine 1.29, glucose 168, calcium 1.1. Normal white count. Monocytes are high. Urine -ketones positive. Estrace negative. At that time, the patient is admitted to the hospital for weakness, recurrent falls and dehydration. REVIEW OF SYSTEMS: CONSTITUTIONAL: Weakness, tiredness. Frequent falls. No fever, no chills. HEENT: Normal. ENDOCRINE: No weight gain; no weight loss. CVS: No chest pain. No PND, no orthopnea. No shortness of breath. No PND, no orthopnea. RESPIRATORY: No cough, no congestion. No hemoptysis. GI: No nausea, no vomiting. No abdominal pain. No melena. : No hematuria. No polyuria. MUSCULOSKELETAL: No joint swelling. PSYCHIATRIC: Change in mental status. Not anxious. No depression. No suicidal thoughts. No homicidal thoughts. SKIN: Intact, no open lesions. PAST MEDICAL HISTORY: Hypertension Dyslipidemia Osteoarthritis DJD spine CAD CHF Atrial fibrillation Bypass surgery Aortic valve replacement CVA Schizophrenia Bipolar disorder History of hepatoma status post partial hepatectomy PAST SURGICAL HISTORY: Surgery for ulcer Hysterectomy Hepatectomy PERSONAL HISTORY: Does not smoke or drink, lives by herself at home. FAMILY HISTORY: Significant for high blood pressure. MEDICATIONS: (HOME) Xarelto Coreg Lipitor Carafate Seroquel Protonix Zofran Lasix Insulin Januvia Lisinopril Amlodipine ALLERGIES: SULFA AND INFLUENZA VACCINE PHYSICAL EXAMINATION: V/S: BP 127/76, respiratory rate 16, heart rate 74, temperature 97.6, saturation 100% on room air. HEENT: Atraumatic, normocephalic. No scleral icterus. Cachetic looking lady, looks very sick and dehydrated. Mucosa dry. Pallor positive. NECK: Supple. No JVD, no bruit. No lymphadenopathy. No thyromegaly. HEART: S1, S2 normal. Systolic murmur positive. No cyanosis or clubbing. No ascites. LUNGS: Decreased entry. Clear to auscultation. No rales or rhonchi. ABDOMEN: Soft, nontender. Bowel sounds are active. No CVA tenderness. No rigidity or guarding. EXTREMITIES: No pedal edema. No cyanosis or clubbing MUSCULOSKELETAL: Normal joints, no swelling. NEUROLOGIC: The patient is awake and alert. SKIN: Intact; no open lesions. LYMPHATIC: No lymph nodes palpable. LABS: Sodium 139, potassium 3.9, chloride 104, bicarb 22, BUN 21, creatinine 1.29, glucose 168, calcium 11.1. White count 4.59, hemoglobin 12.2, hematocrit 35.9, platelet count 222. ASSESSMENT: 1. HYPERCALCEMIA 2. DEHYDRATION 3. RECURRENT FALLS 4. DIABETES 5. HYPERTENSION 6. OSTEOARTHRITIS 7. BIPOLAR DISORDER 8. SCHIZOPHRENIA PLAN: 1. Admit the patient to the regular floor. 2. IV fluids. 3. Accu-Cheks with coverage. 4. Continue home medications. 5. Daily I & O's. TIME SPENT: MORE THAN 75 minutes MTDD
[2018-02-17] MEDS: SODIUM CHLORIDE 1,000 ML IV SCH ×2 (14:34→14:35)
[2018-02-17] MEDS ORDERED: NON-FORMULARY MEDICATION (Rivaroxaban [Xarelto] 15 MG) PO SCH (17:00)
[2018-02-17] MEDS: XARELTO PO SCH (17:33)
[2018-02-17] MEDS ORDERED: SEROQUEL PO SCH (21:00)
[2018-02-17] MEDS: LIPITOR PO SCH (21:14)
[2018-02-17] MEDS: SEROQUEL PO SCH (21:14)
[2018-02-17] MEDS: LANTUS SUBCUT SCH (21:15)
[2018-02-17] MEDS: LOVENOX SUBCUT SCH (21:15)
[2018-02-18] MEDS: PROTONIX PO SCH (06:26)
[2018-02-18] MEDS: CARAFATE PO SCH ×4 (06:26→21:06)
[2018-02-18] MEDS: ZESTRIL PO SCH ×2 (09:22→21:07)
[2018-02-18] MEDS: NORVASC PO SCH (09:22)
[2018-02-18] MEDS: COREG PO SCH ×2 (09:22→18:24)
[2018-02-18] MEDS: JANUVIA PO SCH (09:22)
[2018-02-18] MEDS: SODIUM CHLORIDE 1,000 ML IV SCH (11:14)
[2018-02-18] MEDS: XARELTO PO SCH (18:25)
[2018-02-18] MEDS: LIPITOR PO SCH (21:07)
[2018-02-18] MEDS: SEROQUEL PO SCH (21:07)
[2018-02-18] MEDS: LOVENOX SUBCUT SCH (21:07)
[2018-02-18] MEDS: LANTUS SUBCUT SCH (21:10)
[2018-02-19] MEDS: CARAFATE PO SCH ×4 (05:56→20:54)
[2018-02-19] MEDS: PROTONIX PO SCH (05:56)
[2018-02-19] MEDS: NORVASC PO SCH (08:32)
[2018-02-19] MEDS: ZESTRIL PO SCH ×2 (08:32→20:54)
[2018-02-19] MEDS: COREG PO SCH ×2 (08:32→18:58)
[2018-02-19] MEDS: JANUVIA PO SCH (08:32)
[2018-02-19] MEDS: SODIUM CHLORIDE 1,000 ML IV SCH (12:43)
[2018-02-19] MEDS: XARELTO PO SCH (17:05)
[2018-02-19] MEDS: LIPITOR PO SCH (20:54)
[2018-02-19] MEDS: SEROQUEL PO SCH (20:55)
[2018-02-19] MEDS: LOVENOX SUBCUT SCH (20:57)
[2018-02-19] MEDS: LANTUS SUBCUT SCH (20:58)
[2018-02-20] MEDS: LASIX TAB PO SCH (05:53)
[2018-02-20] MEDS: PROTONIX PO SCH (05:53)
[2018-02-20] MEDS: CARAFATE PO SCH ×4 (06:09→20:33)
[2018-02-20] MEDS: SODIUM CHLORIDE 1,000 ML IV SCH (06:52)
[2018-02-20] MEDS: COREG PO SCH ×2 (10:36→18:34)
[2018-02-20] MEDS: JANUVIA PO SCH (10:36)
[2018-02-20] MEDS: ZESTRIL PO SCH ×2 (10:36→20:34)
[2018-02-20] MEDS: NORVASC PO SCH (10:36)
[2018-02-20] MEDS: MICRO-K CAP PO SCH (10:36)
--- NOTE | 2018-02-20 13:54 | PN ---
DATE OF SERVICE: 02/18/18 SUBJECTIVE: The patient was admitted with the weakness, tiredness and recurrent falls. Still feeling weak and tired. Decreased the Risperdal 150mg daily from 300mg. She was able to eat some. This is the patient's 4th admission in 2.5 months. We will be looking for the custodial care at the intermediate and the patient is OK with that. REVIEW OF SYSTEMS: CONSTITUTIONAL: No fever, no chills. HEENT: Normal. ENDOCRINE: No weight gain, no weight loss. CVS: No angina symptoms. No CHF symptoms. No palpitations. No atypical chest pain for CAD. No shortness of breath. No PND, no orthopnea. RESPIRATORY: No cough, no hemoptysis. GI: No nausea, no vomiting. No abdominal pain. : No hematuria. No polyuria. MUSCULOSKELETAL: No joint swelling. PSYCHIATRIC: Not anxious. No depression. No suicidal thoughts. No homicidal thoughts. SKIN: Intact. No rash. PHYSICAL EXAMINATION: V/S: Blood pressure 143/73, respiratory rate 18, heart rate 97 and temperature 97.6 with saturation 95%. HEENT: Normocephalic, atraumatic. Mucosa dry. Pallor positive. No icterus. NECK: Supple. No JVD, no carotid bruit. No lymphadenopathy. LUNGS: Decreased and clear to auscultation. No rales or rhonchi. HEART: S1, S2 normal. No S3. Systolic murmur, gallop or regurgitation. ABDOMEN: Soft, nontender. Bowel sounds active. No rigidity. No rebound or guarding. No CVA tenderness. EXTREMITIES: No cyanosis, clubbing or pedal edema. MUSCULOSKELETAL: No joint swelling. NEUROLOGIC: Awake, alert, oriented times three. No focal deficit. LYMPHATIC: No lymph nodes palpable. SKIN: Intact. LABS: Sodium 140, potassium 3.8, chloride 108, bicarb 24, BUN 17, creatinine 1.12 and glucose 163.WBC 6.0, hgb 11.5, hct 34.7, plt count 172. ASSESSMENT: 1. Weakness 2. Light headedness 3. Acute on chronic renal failure 4. Dehydration 5. Frequent falls 6. CAD 7. Aortic valve replacement 8. Diabetes 9. Osteoarthritis 10.DJD spine 11.Schizophrenia 12.Bipolar disorder PLAN: 1. Continue the IV fluids 2. Complete bed rest 3. prison placement evaluation. TIME SPENT: More than 35 minutes MTDD
[2018-02-20] MEDS: XARELTO PO SCH (18:35)
[2018-02-20] MEDS: LIPITOR PO SCH (20:33)
[2018-02-20] MEDS: SEROQUEL PO SCH (20:33)
[2018-02-20] MEDS: LANTUS SUBCUT SCH (20:34)
[2018-02-20] MEDS: LOVENOX SUBCUT SCH (20:34)
[2018-02-21] MEDS: PROTONIX PO SCH (05:50)
[2018-02-21] MEDS: CARAFATE PO SCH ×2 (05:50→13:47)
--- NOTE | 2018-02-21 08:41 | PN ---
DATE OF SERVICE: 02/17/18 SUBJECTIVE: The patient is still weak and tired. No slurry speech, no able to get out of the bed and did not eat or drink much. REVIEW OF SYSTEMS: CONSTITUTIONAL: No fever, no chills. HEENT: Normal. ENDOCRINE: No weight gain, no weight loss. CVS: No angina symptoms. No CHF symptoms. No palpitations. No atypical chest pain for CAD. No shortness of breath. No PND, no orthopnea. RESPIRATORY: No cough, no hemoptysis. GI: No nausea, no vomiting. No abdominal pain. : No hematuria. No polyuria. MUSCULOSKELETAL: No joint swelling. PSYCHIATRIC: Not anxious. No depression. No suicidal thoughts. No homicidal thoughts. SKIN: Intact. No rash. PHYSICAL EXAMINATION: V/S: Blood pressure 142/79, respiratory rate 20, heart rate 69, temperature 97.5 with saturation 98%. HEENT: Normocephalic, atraumatic. Mucosa dry. Pallor positive. No icterus. NECK: Supple. No JVD, no carotid bruit. No lymphadenopathy. LUNGS: Decreased and basilar crackles. Clear to auscultation. No rales or rhonchi. HEART: S1, S2 normal. No S3. Systolic murmur, gallop or regurgitation. ABDOMEN: Soft, nontender. Bowel sounds active. No rigidity. No rebound or guarding. No CVA tenderness. EXTREMITIES: No cyanosis, clubbing or pedal edema. MUSCULOSKELETAL: No joint swelling. NEUROLOGIC: Awake, alert, oriented times three. No focal deficit. LYMPHATIC: No lymph nodes palpable. SKIN: Intact. LABS: Sodium 139, potassium 3.1, chloride 105, bicarb 23, BUN 19, creatinine 1.30, glucose 128. WBC 4.78, hgb 11.4, hct 34.4, plt count 192. ASSESSMENT: 1. Recurrent falls 2. Dehydration 3. Failure to thrive 4. Diabetes 5. Hypertension 6. Dyslipidemia 7. Aortic valve replacement 8. Schizophrenia 9. Bipolar PLAN: 1. Continue the IV fluids 2. Out of bed to chair with help 3. long-term evaluation TIME SPENT: More than 35 minutes MTDD
[2018-02-21] MEDS: ZESTRIL PO SCH (09:16)
[2018-02-21] MEDS: JANUVIA PO SCH (09:16)
[2018-02-21] MEDS: COREG PO SCH (09:17)
[2018-02-21] MEDS: NORVASC PO SCH (09:17)
[2018-02-21] MEDS: SODIUM CHLORIDE 1,000 ML IV SCH (09:17)
--- NOTE | 2018-02-21 10:35 | PN ---
DATE OF SERVICE: 02/20/18 SUBJECTIVE: The patient says that she wants to get down and walk a little bit. Discussed with the Video Mach[employer] Mechanic. The patient will be a very good candidate for the short term care custodial placement which is discussed with the patient and agreeable for that. REVIEW OF SYSTEMS: CONSTITUTIONAL: No fever, no chills. HEENT: Normal. ENDOCRINE: No weight gain, no weight loss. CVS: No angina symptoms. No CHF symptoms. No palpitations. No atypical chest pain for CAD. No shortness of breath. No PND, no orthopnea. RESPIRATORY: No cough, no hemoptysis. GI: No nausea, no vomiting. No abdominal pain. : No hematuria. No polyuria. MUSCULOSKELETAL: No joint swelling. PSYCHIATRIC: Not anxious. No depression. No suicidal thoughts. No homicidal thoughts. SKIN: Intact. No rash. PHYSICAL EXAMINATION: V/S: Blood pressure 125/76, respiratory rate 20, heart rate 701, temperature 97.8 and saturation 98%. HEENT: Normocephalic, atraumatic. Mucosa dry. NECK: Supple. No JVD, no carotid bruit. No lymphadenopathy. LUNGS: Clear to auscultation. No rales or rhonchi. HEART: S1, S2 normal. No S3. Systolic murmur, gallop or regurgitation. ABDOMEN: Soft, nontender. Bowel sounds active. No rigidity. No rebound or guarding. No CVA tenderness. EXTREMITIES: No cyanosis, clubbing or pedal edema. MUSCULOSKELETAL: No joint swelling. NEUROLOGIC: Awake, alert, oriented times three. No focal deficit. LYMPHATIC: No lymph nodes palpable. SKIN: Intact. LABS: Sodium 140, potassium 3.8, chloride 108, bicarb 24, BUN 17, creatinine 1.12 and glucose 163.WBC 6.0, hgb 11.5, hct 34.7, plt count 172. ASSESSMENT: 1. Weakness 2. Failure to thrive 3. Frequent falls 4. Diabetes 5. Hypertension 6. Aortic valve replacement 7. Coronary artery disease 8. Depression 9. Anxiety PLAN: 1. Evaluation for the placement at the custodial, Vera Mcdaniels has to come and evaluate the patient 2. Continue the rest of the home medications TIME SPENT: More than 35 minutes MTDD
--- NOTE | 2018-02-21 10:38 | PN ---
DATE OF SERVICE: 02/19/18 SUBJECTIVE: Still feeling weak and tired and not able to get out of the bed, eating good. REVIEW OF SYSTEMS: CONSTITUTIONAL: No fever, no chills. HEENT: Normal. ENDOCRINE: No weight gain, no weight loss. CVS: No angina symptoms. No CHF symptoms. No palpitations. No atypical chest pain for CAD. No shortness of breath. No PND, no orthopnea. RESPIRATORY: No cough, no hemoptysis. GI: No nausea, no vomiting. No abdominal pain. : No hematuria. No polyuria. MUSCULOSKELETAL: No joint swelling. PSYCHIATRIC: Not anxious. No depression. No suicidal thoughts. No homicidal thoughts. SKIN: Intact. No rash. PHYSICAL EXAMINATION: V/S: Blood pressure 143/77, respiratory rate 20, heart rate 69, temperature 97.5 with saturation 98%. HEENT: Normocephalic, atraumatic. Mucosa dry. Pallor positive. No icterus. NECK: Supple. No JVD, no carotid bruit. No lymphadenopathy. LUNGS: Decreased and clear to auscultation. No rales or rhonchi. HEART: S1, S2 normal. No S3. Systolic murmur, gallop or regurgitation. ABDOMEN: Soft, nontender. Bowel sounds active. No rigidity. No rebound or guarding. No CVA tenderness. EXTREMITIES: No cyanosis, clubbing or pedal edema. MUSCULOSKELETAL: No joint swelling. NEUROLOGIC: Awake, alert, oriented times three. No focal deficit. LYMPHATIC: No lymph nodes palpable. SKIN: Intact. LABS: WBC 6.0, hgb 11.5, hct 34.7, plt count 172, sodium 140, potassium 3.8, chloride 108, bicarb 24, BUN 17, creatinine 1.12 and glucose 163. ASSESSMENT: 1. Failure to thrive 2. Recurrent falls 3. Diabetes 4. Hypertension 5. Schizophrenia 6. Bipolar disorder 7. Aortic valve replacement PLAN: 1. Continue to monitor the CBC and CMP 2. IV fluids 3. Continue to replace the Potassium 4. Fall precaution 5. Seroquel 150 at bedtime is helping the patient more, the patient is more awake and alert now. Not sleepy much. TIME SPENT: More than 35 minutes MTDD
--- NOTE | 2018-02-21 14:20 | CT ---
EXAM: CT of the head without contrast History: Altered mental status. Comparison: Head CT 01/17/2018 Technique: Multiplanar CT images through the head were obtained without the administration of IV con trast Findings: The visualized paranasal sinuses and mastoid air cells are clear in general. No acute mason varial abnormalities. Intracranially there are atherosclerotic vascular calcifications. No midline shift and no hydrocepha sandro. Stable atrophy. No change in the periventricular and subcortical white matter hypodensities an d old lacunar infarctions. No acute intracranial hemorrhage or abnormal extraaxial fluid collections. Impression: 1. No acute intracranial hemorrhage. 2. Atrophy, chronic small vessel ischemic disease and old lacunar infarctions are unchanged. If sym ptoms persist, consider correlation with brain MRI.
[2018-02-21 15:17] VITALS: BP 142/74; TEMP 98.6
[2018-02-21] MEDS ORDERED: LANTUS SUBCUT SCH (21:00)
--- NOTE | 2018-03-02 15:36 | DS ---
DATE OF SERVICE: 02/21/18 FINAL DIAGNOSIS: 1. Failure to thrive 2. Recurrent falls 3. Dehydration 4. Weakness 5. Status post bypass surgery 6. Aortic valve replacement 7. Diabetes 8. Hypertension 9. 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 PT/OT place evaluate and treat. CBC and CMP within one week. Accu-checks with coverage. Continue the home medications. MEDICATIONS AT DISCHARGE: Norvasc Coreg Lisinopril Protonix Risperdal Miralax Lipitor Xarelto Lasix Lantus Zofran Potassium Januvia Carafate NEW PRESCRIPTIONS: Lantus 16 unit SUBCUT bedtime Seroquel XR 150mg PO bedtime DIET INSTRUCTIONS: Cardiac and healthy diet ACTIVITY: Can participate in the prison activity DISEASE SPECIFIC EDUCATION: Dehydration Fall risk and Hypoglycemia from the diabetes been discussed and verbalized understanding. HOSPITAL COURSE: Henna Ramsay 72 year old female with multiple medical problem and diabetes came to the office complaining of the patient been falling down, injury and bruise to the knee. This is the second and third fall. The patient was recently in the [facility] for the same reason. The patient was found to be in dehydration. At that time the patient was admitted to the [facility] and started on IV fluids. Her food intake was only initially 50%. We did decrease the Seroquel dose from the 300mg to 150mg so the patient was more awake and alert. She was strictly on the fall risk. The patient was discussed about the skilled nursing prison care as the patient had two to three admissions within one month period. The patient was nice and understanding about her situation and she did really want some help. At that time the prison [place] was contacted and they were courteous enough to accept the patient and the patient being discharged to the [facility]. She will be PT/OT evaluation and participating in the physical therapy. At the time of discharge the patient is up and about walking and did not have any problems during that time. TIME SPENT: MORE THAN 65 MINUTES MTDD
== END 2018-02-21 17:07 | DRG 641 ==
LOC: ED 15:03 → MEDSURG B 17:56
PROVIDERS: ADMIT Emergency Medicine; ATTEND Emergency Medicine
DX: E86.0 Dehydration (principal); R64 Cachexia; N17.9 Acute kidney failure, unspecified; R41.0 Disorientation, unspecified; T88.53XA Unintended awareness under general anesthesia during procedure, initial encounter; Z95.1 Presence of aortocoronary bypass graft; Z95.828 Presence of other vascular implants and grafts; E11.9 Type 2 diabetes mellitus without complications; Z79.4 Long term (current) use of insulin; I10 Essential (primary) hypertension; E78.5 Hyperlipidemia, unspecified; M19.90 Unspecified osteoarthritis, unspecified site; F20.9 Schizophrenia, unspecified; F31.9 Bipolar disorder, unspecified; F41.1 Generalized anxiety disorder; Z86.73 Personal history of transient ischemic attack (TIA), and cerebral infarction without residual deficits; K81.1 Chronic cholecystitis; K21.9 Gastro-esophageal reflux disease without esophagitis; Z91.81 History of falling; E83.52 Hypercalcemia
CPT/HCPCS: 36415; 80053; 81001; 82550; 82553; 82962; 85025; 85651; 87081; 93005; 93010; 99285

== ENCOUNTER 2018-03-09 10:17 | Outpatient (CLI) | payer OTHER | END 2018-03-09 10:18 | disposition home or self-care (01) | LOC: NONPT 10:17 | PROVIDERS: ATTEND Emergency Medicine | DX: Z51.81 Encounter for therapeutic drug level monitoring (principal); Z79.899 Other long term (current) drug therapy; E87.5 Hyperkalemia | CPT/HCPCS: 83735; 84132 ==

== ENCOUNTER 2018-03-14 23:16 | Inpatient (IN) | payer OTHER ==
--- NOTE | 2018-03-15 00:21 | CT ---
EXAM: CT scan pelvis without contrast HISTORY: Fall COMPARISON: CT scan pelvis 02/09/2018 FINDINGS: Contiguous axial images obtained through the pelvis without contrast utilizing 3-mm collim ation. Sagittal and coronal reconstructions were imaged and reviewed.. Atherosclerotic changes are seen involving the aorta. There has been prior hysterectomy. The bladder is unremarkable. There is diverticulosis without diverticulitis.. Degenerative changes are seen within the lower lumbar spine , bilateral SI joints and hip joints. IMPRESSION: No acute findings.
--- NOTE | 2018-03-15 00:23 | CT ---
EXAM: CT head without contrast. HISTORY: Weakness. . PROCEDURE: Contiguous axial CT images of the head without contrast with coronal and sagittal reforma ts. FINDINGS: There is diffuse cerebral atrophy. The ventricles and basal cisterns are normal in size an d configuration. No evidence of mass or midline shift. No intracranial hemorrhage or evidence of la rge vessel infarct. No extra-axial fluid collection. There are chronic small vessel ischemic change s in the white matter. No skull fracture. The paranasal sinuses and mastoid air cells are well-aerat ed and normal in appearance. Impression: No intracranial hemorrhage or evidence of large vessel infarct. Chronic small vessel ischemic changes. Diffuse cerebral atrophy.
--- NOTE | 2018-03-15 04:53 | ED.PDOC ---
General ED Provider: Dr. LORRAINE BARRIGA-ER Chief Complaint: Weakness Stated Complaint: im weak-- Time Seen by Physician: 23:20 Mode of Arrival: Ambulance Information Source: Patient, EMT Exam Limitations: No limitations Primary Care Provider[facility] and Triage Documentation Reviewed and Agree: Yes Does patient meet sepsis criteria?: No System Inflammatory Response Syndrome: Not Applicable Sepsis Protocol: For patient's 13 years and over: Temp is 96.8 and below OR 101 and greater Pulse >90 BPM Resp >20/minute Acutely Altered Mental Status Are patient's symptoms suggestive of a new infection, such as: -Pneumonia -Skin, Soft Tissue -Endocarditis -UTI -Bone, Joint Infection -Implantable Device -Acute Abdominal Infection -Wound Infection -Meningitis -Blood Stream Catheter Infection -Unknown Musculoskeletal Complaint Exam - Back Pain Complaint/Exam Mechanism of Injury: Reports: Trauma Onset/Duration: one hour ago Symptoms Are: Resolved Initial Severity: Mild Current Severity: Moderate Location: Reports: Diffuse Aggravating: Reports: None Alleviating: Reports: None Associated Signs and Symptoms: Denies: Swelling, Redness, Bruising, Fever, Weakness, Numbness, Tingling, Abdominal pain, Flank pain, Bladder incontinence, Bowel incontinence, Weight loss, Pain with weight bearing TAD Risk Factors: Reports: None AAA Risk Factors: Reports: None Cauda Equina Risk Factors: Reports: None Epidural Abcess Risk Factors: Reports: None Related Surgical History: Reports: None Focal Tenderness: No Paraspinal Muscle Tenderness: No Paraspinal Muscle Spasm: No Scoliosis: No Lordosis: No Kyphosis: No SLR Test: Right Negative, Left Negative Hip Motion Testing Pain: Right Negative, Left Negative Focal Weakness: Present: None Focal Sensory Loss: Present: None Gait: Present: Unsteady Differential Diagnoses: Other Review of Systems - Review Of Systems Constitutional: Reports: No symptoms, Weakness Eyes: Reports: No symptoms Ears, Nose, Mouth, Throat: Reports: No symptoms Respiratory: Reports: No symptoms Cardiac: Reports: No symptoms GI: Reports: No symptoms : Reports: No symptoms Musculoskeletal: Reports: No symptoms Skin: Reports: No symptoms Neurological: Reports: No symptoms Endocrine: Reports: No symptoms Hematologic/Lymphatic: Reports: No symptoms All Other Systems: Reviewed and Negative Past Medical History - Past Medical History Previously Healthy: No Endocrine: Reports: DM 1, Dyslipidemia Cardiovascular: Reports: CAD, AL, Hypertension, A-Fib, Other Respiratory: Reports: None Hematological: Reports: None Gastrointestinal: Reports: PUD, Liver Genitourinary: Reports: None Neuro/Psych: Reports: TIA, CVA, Anxiety, Depression, Bipolar Disorder Musculoskeletal: Reports: Arthritis Cancer: Reports: Other (LIVER) Last Menstrual Period: PT HAS HAD A HYSTERECTOMY Other Pertinent Past Medical History: cabg ulcer hyst - Surgical History General Surgical History: Reports: Hysterectomy, CABG, Other (Atrial flutter/ fib paroxysmal. Prosthetic pig valve, aortic. CA of the liver, 90% removed. ) - Family History Family History: Reports: Unknown - Social History Smoking Status: Former smoker Hx Substance Use: No Alcohol Screening: None - Immunizations Tetanus Shot up to Date: Yes Physical Exam - Physical Exam Appearance: Well-appearing, No pain distress, Well-nourished Eyes: [facility] ENT: Ears normal, Nose normal, Oropharynx normal Neck: Supple Respiratory: Airway patent Cardiovascular: RRR, Pulses normal, No rub, No murmur GI/: Soft, Nontender, No masses, Bowel sounds normal, No Organomegaly Musculoskeletal: Normal strength, ROM intact, No edema, No calf tenderness Skin: Warm, Dry, Normal color Neurological: Sensation intact, Motor intact, Reflexes intact, Cranial nerves intact, Alert, Oriented Psychiatric: Affect appropriate, Mood appropriate Interpretation - Radiology Interpretation Radiology Interpretation By: Radiologist Radiology Results: Negative Exam Interpreted: CT Scan Physician Notification - Case Discussed Physician Notified: dr medellin Time of Notification: 04:52 Critical Care Note - Critical Care Note Total Time (mins): 0 Course - Course Hematology/Chemistry: 03/14/18 23:45 03/14/18 23:45 Orders, Labs, Meds: Lab Review 03/14/18 03/14/18 03/15/18 23:45 23:45 00:56 WBC 4.73 RBC 4.04 L Hgb 11.2 L Hct 33.8 L MCV 83.7 MCH 27.7 MCHC 33.1 RDW Coeff of Silvana 14.6 Plt Count 185 Immature Gran % (Auto) 0.4 Neut % (Auto) 65.6 Lymph % (Auto) 21.4 Lewis % (Auto) 9.5 Eos % (Auto) 2.3 Baso % (Auto) 0.8 Immature Gran # (Auto) 0.0 Neut # (Auto) 3.1 Lymph # (Auto) 1.0 Lewis # (Auto) 0.5 Eos # (Auto) 0.1 Baso # (Auto) 0.0 Sodium 138 Potassium 3.6 Chloride 104 Carbon Dioxide 24 Anion Gap 13.6 BUN 22 H Creatinine 1.22 Estimated GFR (MDRD) 43.00 BUN/Creatinine Ratio 18.03 Glucose 186 H Calcium 10.4 H Total Bilirubin 0.7 AST 8 L ALT 10 L Alkaline Phosphatase 61 Total Creatine Kinase 37 Troponin I 0.0400 Total Protein 6.8 Albumin 3.2 L Globulin 3.6 Albumin/Globulin Ratio 0.89 TSH 0.815 Urine Color Yellow Urine Clarity Clear Urine pH 6.5 Ur Specific [place] 1.010 Urine Protein Negative Urine Glucose (UA) 2+ Urine Ketones Negative Urine Blood 2+ Urine Nitrite Negative Urine Bilirubin Negative Urine Urobilinogen 0.2 Ur Leukocyte Esterase Trace Urine Microscopic RBC 2-5 Ur Squamous Epith Cells 0-2 Urine Bacteria Trace Orders Category Date Time Status EKG-(ED ONLY) Stat CARDIO 03/15/18 00:02 Completed Orthostatic Vital Signs [ED ORTHOSTATIC VITAL SIGNS] . EMERGENCY 03/14/18 23: 31 Active ONCE CBC W/ AUTO DIFF Stat LAB 03/14/18 23:45 Completed COMPREHENSIVE METABOLIC PANEL Stat LAB 03/14/18 23:45 Completed CREATINE KINASE Stat LAB 03/14/18 23:45 Completed THYROID STIMULATING HORMONE Stat LAB 03/14/18 23:45 Completed TROPONIN I Stat LAB 03/14/18 23:45 Completed URINALYSIS C & S IF INDICATED Stat LAB 03/15/18 00:[address] HEAD W/O CONTRAST Stat RADS 03/14/18 23:[address] PELVIS W/O CONTRAST Stat RADS 03/14/18 23:30 Completed Vital Signs: Temp Pulse Resp BP Pulse Ox 03/14/18 23:40 73 112/64 03/14/18 23:37 66 81/49 L 03/14/18 23:36 63 100/63 03/14/18 23:35 59 L 102/60 03/14/18 23:17 97.6 F 60 20 113/61 99 Departure - Departure Time of Disposition: 04:53 Disposition: ADMITTED INPATIENT Discharge Problem: Orthostasis Instructions: Hypotension (ED) Condition: Stable Pt referred to PMD for follow-up: Yes IPMP verified?: No Allergies/Adverse Reactions: Allergies influenza virus vaccine, specific [Influenza Virus Vacc,Specific] Adverse Reaction (Verified 03/14/18 23:27) Sulfa (Sulfonamide Antibiotics) Adverse Reaction (Verified 03/14/18 23:27) Home Medications: Ambulatory Orders Rivaroxaban [Xarelto] 15 mg PO 1700 11/10/16 Atorvastatin Calcium [Lipitor] 20 mg PO BEDTIME 11/15/17 Sucralfate [Carafate] 1 gm PO ACHS tablet 11/18/17 Ondansetron HCl [Zofran] 4 mg PO TID PRN #30 tablet 01/07/18 Furosemide [Lasix Tab] 20 mg PO MOWEFR 30 Days tablet 01/23/18 Potassium Chloride [Micro-K Cap] 10 meq PO MOWEFR 30 Days capsule.er 01/23/18 Sitagliptin Phosphate [Januvia] 50 mg PO DAILY #30 tab 01/23/18 Quetiapine Fumarate [Seroquel Xr] 150 mg PO BEDTIME #30 tab.er.24h 02/21/18 Transfer Form Completed: No Disposition Discussed With: Patient
[2018-03-15] MEDS: SODIUM CHLORIDE 1,000 ML IV STA ×2 (05:05→14:14)
[2018-03-15 05:51] VITALS: BMI 34.4
[2018-03-15] MEDS: HUMULIN R SUBCUT PRN ×2 (06:48→17:11)
[2018-03-15] MEDS: PROTONIX PO SCH (09:33)
[2018-03-15] MEDS ORDERED: ZOFRAN TAB PO PRN (11:06)
[2018-03-15] MEDS ORDERED: RISPERIDONE MICROSPHERES 50 MG IM SCH (11:15)
--- NOTE | 2018-03-15 11:59 | RS.PTINEVL ---
Subjective - Patient information Date of Evaluation: 03/15/18 Date of Arrival on Unit: 03/15/18 Admitted From:: Home Diagnosis: fatigue, orthostasis, fall Usual Living Arrangement: Alone Living Arrangement Comments: pt lives alone in apt, has caregiver 8-11 m-f to assist with cleaning and cooking. Home Environment: Apartment Medical History: Hypertension, CVA/TIA, Arthritis Medical History Comments:: CA of liver, CAD, [place], Afib, bipolar disorder, depression LATEX ALLERGY?: No Surgical History: Hysterectomy, CABG Surgical History Comments:: aortic valve replacement Medications: see chart Subjective Information/ Patient Comments:: pt states that she is not feeling well today. - Level of function Prior to this admission, the patient could do the following:: Independent Ambulation Abilities prior to this admission: pt states she was independent with amb without AD, however states she "should use a walker". pt states she is independent with bathing and dressing and caregiver assists with cooking and cleaning Current Equipment Used at Home: glucometer Interventions - Objective Patient Orientation: Person, Place, Time Current Interventions: IV's, Telemetry Range of Motion - ROM Right Upper Extremity AROM: WFL's Left Upper Extremity AROM: WFL's Right Lower Extremity AROM: WFL's Left Lower Extremity AROM: WFL's Muscle Strength - Muscle Strength Right Upper Extremity Strength: Mild Weakness (grossly 4-/5) Left Upper Extremity Strength: Mild Weakness (grossly 4-/5) Right Lower Extremity Strength: Mild Weakness (hip flex 4-/5, knee flex/ext 4/5 , ankle Df/PF 4/5) Left Lower Extremity Strength: Mild Weakness (hip flex 4-/5, knee flex/ext 4/5, ankle Df/PF 4/5) Sensation - Sensation Right Upper Extremity Sensation: Intact/Normal Left Upper Extremity Sensation: Intact/Normal Right Lower Extremity Sensation: Intact/Normal Left Lower Extremity Sensation: Intact/Normal Palpation Palpation Findings: None/Normal Balance - Sitting Balance and Reactions Static Sitting Balance: Good Dynamic Sitting Balance: Fair Sitting Equilibrium Reactions: Delayed Left, Delayed Right Sitting Protective Reactions: Delayed Left, Delayed Right - Standing Balance and Reactions Static Standing Balance: Poor Dynamic Standing Balance: Poor Standing Equilibrium Reactions: Delayed Left, Delayed Right Standing Protective Reactions: Delayed Left, Delayed Right - Comments Balance Assessment Comments: tinetti score: 14/28 Functional Mobility - Bed Mobility Rolling R/L: Supervision Scooting: Supervision Supine to Sit: CGA, Min Assist - Transfers Sit to Stand: CGA, Min Assist Stand to Sit: CGA - Safety Awareness Safety Awareness: Fair ANA INDEX SCORE: n/a Ambulation - Ambulation Assistive Device Used: Rolling Walker Orthotic/Prosthetic Device: No Distance: 100ft Assistance needed with Ambulation: CGA, 1 person assist Gait Deviations: Forward posture, Short stride, Deviates from path Ambulation Comments: requires assist to guide rwx Factors Affecting Ambulation: Decreased Balance, Weakness, Dizziness, Decreased Safety, Cognitive Status, Limited Endurance Treatment time - Time with patient Length of Evaluation: 15 Total treatment time: 29 Patient Education - Education Patient Education: Activity Modification, Education of Plan of Care Teaching Recipient: Patient Teaching Methods: Discussion (discussion with patient regarding POC and she states she feels she needs more help at home.) Assessment - Assessment Problem List:: Decreased level of function, Requires training/education, Decreased safety/Risk of falls, Weakness, Cognitive status limits abilities Rehab Potential: Good Further Therapy Indicated?: Yes Candidate for Swing Bed for Therapy Services?: pt may not be a candidate for swing bed if planning for permanent skilled nursing placement, however if planning to go home may qualify for swing bed. Evaluation Complexity: HISTORY: Medium (CAD, CVA, bipolar, OA), EXAM OF BODY SYSTEMS: Medium (strength, balance, posture, gait), CLINICAL PRESENTATION: Medium (evolving), CLINICAL DECISION MAKING: Medium Short Term Goals GOAL #1: pt demonstrate independence with rolling and scooting in bed. Goal to be met by: 03/17/18 GOAL #2: pt transfer sup to/from sit to/from stand CGA/SBA Goal to be met by: 03/17/18 GOAL #3: pt amb with rwx 125ft with CGA with no LOB Goal to be met by: 03/17/18 GOAL #4: pt with improved BLE strength 4 to 4+/5 Goal to be met by: 03/17/18 Longterm Goals GOAL #1: pt transfer sup to/from sit to/from stand SBA to independent Goal to be met by: 03/20/18 GOAL #2: pt amb functional household distances with rwx SBA no LOB Goal to be met by: 03/20/18 GOAL #3: Improve dyn stand balance as noted by tinetti score of 19/28 Goal to be met by: 03/20/18 Plan Plan of Care: Therapeutic EX, Therapeutic Activity Other:: gait training Frequency of Treatment: 1-2 X day, as tolerated Duration of Treatment: 6 days Anticipated Discharge Destination: undetermined Treatment Diagnosis (ICD 10 Codes): R 26.2 difficulty walking. R26.81 balance impaired. M62.81 general weakness Has the Physician been added for Co-signature?: Yes
--- NOTE | 2018-03-15 12:01 | RS.OTINEVL ---
Subjective - Patient information Date of Evaluation: 03/15/18 Date of Arrival on Unit: 03/15/18 Admitted From:: Home Usual Living Arrangement: Alone Living Arrangement Comments: pt lives alone in apt, has caregiver 8-11 m-f to assist with cleaning and cooking. Home Environment: Apartment Medical History: Hypertension, CVA/TIA, Arthritis Medical History Comments:: CA of liver, CAD, [place], Afib, bipolar disorder, depression LATEX ALLERGY?: No Surgical History: Hysterectomy, CABG Surgical History Comments:: aortic valve replacement Medications: see chart Subjective Information/ Patient Comments:: "I am thinking about going to Assisted Living." "I have caregivers that come help me every morning from 8-11 a.m. They have been helping me for 10 years. - Level of function Prior to this admission, the patient could do the following:: Independent Ambulation Current Equipment Used at Home: glucometer Pain Assessment - Pain Pain Score: 0 Interventions - Objective Patient Orientation: Person, Place Current Interventions: IV's, Telemetry Observation: Pt is forgetful. Pt did not remember therapist coming in for evaluation. Pt has impaired memory. Interventions - ROM Right Upper Extremity AROM: WFL's Left Upper Extremity AROM: WFL's - Strength Right Upper Extremity Strength: Mild Weakness Left Upper Extremity Strength: Mild Weakness - Sensation Right Upper Extremity Sensation: Intact/Normal Left Upper Extremity Sensation: Intact/Normal Balance - Sitting Balance Static Sitting Balance: Fair Dynamic Sitting Balance: Fair - Standing Balance Static Standing Balance: Fair Dynamic Standing Balance: Fair - Comments Balance Assessment Comments: Fair with a RW. ADL Skills - Self Feeding Self Feeding: Independent - Grooming Grooming: CGA - Bathing Bathing UE: Min Assist Bathing LE: Min Assist - Dressing Dressing UE: CGA Dressing LE: Min Assist - Toilet Management Toileting Management: CGA Functional Mobility - Bed Mobility Rolling R/L: Independent Scooting: Independent Supine to Sit: Independent Sit to Supine: Independent - Transfers Sit to Stand: CGA Stand to Sit: [facility] Stand Pivot Transfers: CGA, 1 person assist - Ambulation Weight Bearing Status: FWB Assistive Device Used: Rolling Walker Assistance needed with Ambulation: CGA - Safety Awareness Safety Awareness: Fair ANA INDEX SCORE: . Additional Treatment Performed - Time with patient Length of Evaluation: 25 Total treatment time: 16 Activities Would you enjoy group activities?: No Do you have difficulty with your vision?: No What types of things do you enjoy doing? Any Hobbies?: Puzzles, Watching TV, Reading. Patient Interests:: Watching Television Patient Education Patient Education: Education of diagnosis, Home Exercise Program, Education of Plan of Care Teaching Recipient: Patient Teaching Methods: Discussion Assessment Problem List:: Decreased level of function, Requires training/education, Decreased safety/Risk of falls, Weakness Rehab Potential: Good Further Therapy Indicated?: Yes Candidate for Swing Bed for Therapy Services?: No. Pt will be ready to go to SNF. Evaluation Complexity: HISTORY: Medium, EXAM OF BODY SYSTEMS: Medium, CLINICAL DECISION MAKING: Medium Short Term Goals - Goals GOAL 1: Pt to be SUP for sink level ADLS. Goal to be met by: 03/20/18 GOAL 2: Pt to increase BUE strength to 4+/5. Goal to be met by: 03/20/18 Comments: . GOAL 3: Pt to increase dynamic std. bal. to G-/Fair+. Goal to be met by: 03/20/18 Clerical Proofreader Goals GOAL 1: Pt to be (I) for sink level ADLS. Goal to be met by: 03/24/18 GOAL 2: Pt to increase BUE strength to 5/5. Goal to be met by: 03/24/18 GOAL 3: Pt to increase dynamic std. bal. to G+. Goal to be met by: 03/24/18 Plan Plan of Care: Therapeutic EX, Neuromuscular Re-Educ, Therapeutic Activity, Self- Care/Home Management Frequency of Treatment: 1-2 X day, as tolerated Duration of Treatment: 2 Weeks Anticipated Discharge Destination: [facility] Treatment Diagnosis (ICD 10 Codes): Muscle WEakness (M62.81), Need for assistance with personal care (Z74.1), Has the Physician been added for Co-signature?: Yes
[2018-03-15] MEDS: JANUVIA PO SCH (13:26)
[2018-03-15] MEDS: MICRO-K CAP PO SCH (13:27)
[2018-03-15] MEDS: LASIX TAB PO SCH (13:27)
[2018-03-15] MEDS ORDERED: NON-FORMULARY MEDICATION (Rivaroxaban [Xarelto] 15 MG) PO SCH (17:00)
[2018-03-15] MEDS: COREG PO SCH (17:04)
[2018-03-15] MEDS: XARELTO PO SCH (17:05)
[2018-03-15] MEDS: ZESTRIL PO SCH (21:09)
[2018-03-15] MEDS: LIPITOR PO SCH (21:09)
[2018-03-15] MEDS: LANTUS SUBCUT SCH (21:10)
[2018-03-15] MEDS: QUETIAPINE FUMARATE 150 MG PO SCH (21:14)
[2018-03-16] MEDS: HUMULIN R SUBCUT PRN ×2 (06:03→11:16)
[2018-03-16] MEDS: PROTONIX PO SCH (06:04)
[2018-03-16] MEDS: JANUVIA PO SCH (08:59)
[2018-03-16] MEDS: COREG PO SCH ×2 (08:59→16:55)
[2018-03-16] MEDS: ZESTRIL PO SCH ×2 (08:59→21:10)
[2018-03-16] MEDS ORDERED: NON-FORMULARY MEDICATION (Amlodipine Besylate [Amlodipine Besylate] 10 MG) PO SCH (09:00)
[2018-03-16] MEDS ORDERED: SODIUM POLYSTYRENE SULFONATE 15 GM PO SCH (09:00)
[2018-03-16] MEDS: NORVASC PO SCH (09:00)
--- NOTE | 2018-03-16 12:37 | HP ---
DATE OF SERVICE: 03/15/18 CHIEF COMPLAINT: Dizziness and lightheadedness HISTORY OF PRESENT ILLNESS: This is a 72 year old female who was recently discharged from the long term after the physical therapy and occupational therapy. She went home and started feeling lightheadedness, dizziness fell down and hit the head. Came tot he emergency room and seen by Dr. Jackson in the emergency room. Blood pressures 113 /61 with drop of blood pressure to the 80 when she stands. Mucosa dry and dehydration with BUN of 22. At that time the patient being admitted to the hospital for the orthostatic hypertension, dehydration, status post fall with the head injury. REVIEW OF SYSTEMS: CONSTITUTIONAL: No fever, no chills. Weakness and tiredness. HEENT: Normal. Headaches, lightheadedness. Dizziness. ENDOCRINE: No weight gain; no weight loss. CVS: No chest pain. No PND, no orthopnea. No shortness of breath. No PND, no orthopnea. RESPIRATORY: No cough, no congestion. No hemoptysis. GI: No nausea, no vomiting. No abdominal pain. No melena. : No hematuria. No polyuria. MUSCULOSKELETAL: No joint swelling. Joints pain. PSYCHIATRIC: Not anxious. No depression. No suicidal thoughts. No homicidal thoughts. SKIN: Intact, no open lesions. PAST MEDICAL HISTORY: Coronary artery disease Hypertension Dyslipidemia Osteoarthritis DJD spine Schizophrenia Bipolar disorder TIA CVA PAST SURGICAL HISTORY: Bypass surgery Aortic valve replacement Prosthetic pig valve PERSONAL HISTORY: The patient lives at home. Does not smoke, drink or no alcohol. FAMILY HISTORY: Hypertension MEDICATIONS: Xarelto Coreg Atorvastatin Carafate Pantoprazole Zofran Lasix Potassium Sitagliptin Lisinopril Amlodipine Risperdal Seroquel Lantus ALLERGIES: Influenza vaccination Sulfa PHYSICAL EXAMINATION: V/S: Blood pressure 102/60, respiratory rate 20, heart rate 59, temperature 97.6 with saturation 98%. GENERAL: Sick looking lady laying in a bed and not in any distress. HEENT: Atraumatic, normocephalic. No scleral icterus. Pallor positive. Mucosa dry. NECK: Supple. No JVD, no bruit. No lymphadenopathy. No thyromegaly. HEART: S1, S2 normal. No murmur. No cyanosis or clubbing. No ascites. LUNGS: Clear to auscultation. No rales or rhonchi. ABDOMEN: Soft, nontender. Bowel sounds are active. No CVA tenderness. No rigidity or guarding. EXTREMITIES: No pedal edema. No cyanosis or clubbing MUSCULOSKELETAL: Normal joints, no swelling. NEUROLOGIC: The patient is SKIN: Intact; no open lesions. LYMPHATIC: No lymph nodes palpable. LABS: WBc 4.73, hgb 11.2, hct 33.8, plt count 185, sodium 138, potassium 3.6, chloride 104, bicarb 24, BUN 22, creatinine 1.22 and glucose 186. ASSESSMENT: 1. Status post fall 2. Dehydration 3. Dizziness 4. Prosthetic heart valve 5. Schizophrenia 6. Bipolar PLAN: 1. Admit patient to the regular floor 2. CBC and CMP today and daily 3. Cardiac enzymes and Troponin 4. IV fluids Will follow the patient in daily rounds. TIME SPENT: MORE THAN 65 minutes MTDD
[2018-03-16] MEDS: XARELTO PO SCH (16:55)
[2018-03-16] MEDS: LIPITOR PO SCH (21:10)
[2018-03-16] MEDS: QUETIAPINE FUMARATE 150 MG PO SCH (21:11)
[2018-03-16] MEDS: LANTUS SUBCUT SCH (21:11)
[2018-03-17] MEDS: PROTONIX PO SCH (06:34)
[2018-03-17] MEDS: JANUVIA PO SCH (08:47)
[2018-03-17] MEDS: LASIX TAB PO SCH (08:47)
[2018-03-17] MEDS: COREG PO SCH ×2 (08:47→17:14)
[2018-03-17] MEDS: NORVASC PO SCH (08:47)
[2018-03-17] MEDS: ZESTRIL PO SCH ×2 (08:48→21:17)
[2018-03-17] MEDS: MICRO-K CAP PO SCH (11:06)
[2018-03-17] MEDS: HUMULIN R SUBCUT PRN ×2 (11:06→17:16)
[2018-03-17] MEDS: XARELTO PO SCH (17:14)
[2018-03-17] MEDS: LIPITOR PO SCH (21:17)
[2018-03-17] MEDS: QUETIAPINE FUMARATE 150 MG PO SCH (21:17)
[2018-03-17] MEDS: LANTUS SUBCUT SCH (21:17)
[2018-03-18] MEDS: HUMULIN R SUBCUT PRN ×2 (06:08→21:04)
[2018-03-18] MEDS: PROTONIX PO SCH (06:09)
[2018-03-18] MEDS: NORVASC PO SCH (09:28)
[2018-03-18] MEDS: ZESTRIL PO SCH ×2 (09:29→20:09)
[2018-03-18] MEDS: COREG PO SCH ×2 (09:29→17:39)
[2018-03-18] MEDS: JANUVIA PO SCH (09:29)
[2018-03-18] MEDS: XARELTO PO SCH (17:39)
[2018-03-18] MEDS: LIPITOR PO SCH (20:09)
[2018-03-18] MEDS ORDERED: RISPERDAL PO SCH (20:30)
[2018-03-18] MEDS ORDERED: SEROQUEL ONE (20:48)
[2018-03-18] MEDS ORDERED: SEROQUEL PO SCH (21:00)
[2018-03-18] MEDS: LANTUS SUBCUT SCH (21:05)
[2018-03-18] MEDS: QUETIAPINE FUMARATE 150 MG PO SCH (21:55)
[2018-03-19] MEDS: PROTONIX PO SCH (05:33)
[2018-03-19] MEDS ORDERED: CITRATE OF MAGNESIA PO STA (07:22)
[2018-03-19] MEDS ORDERED: ZESTRIL PO SCH (09:00)
[2018-03-19] MEDS: ZESTRIL PO SCH ×2 (09:25→20:26)
[2018-03-19] MEDS: JANUVIA PO SCH (09:25)
[2018-03-19] MEDS: NORVASC PO SCH (09:26)
[2018-03-19] MEDS: COREG PO SCH ×2 (09:26→17:37)
[2018-03-19] MEDS: HUMULIN R SUBCUT PRN ×2 (12:02→17:39)
[2018-03-19] MEDS: XARELTO PO SCH (17:38)
[2018-03-19] MEDS: LIPITOR PO SCH (20:27)
[2018-03-19] MEDS: QUETIAPINE FUMARATE 150 MG PO SCH (20:27)
[2018-03-19] MEDS: LANTUS SUBCUT SCH (20:28)
[2018-03-19] MEDS ORDERED: SEROQUEL PO SCH ×3 (21:00)
[2018-03-19] MEDS ORDERED: RISPERDAL PO SCH (21:00)
[2018-03-20] MEDS: PROTONIX PO SCH (05:34)
[2018-03-20] MEDS: LASIX TAB PO SCH (05:35)
[2018-03-20] MEDS: HUMULIN R SUBCUT PRN ×2 (05:35→11:06)
[2018-03-20] MEDS: JANUVIA PO SCH (08:57)
[2018-03-20] MEDS: COREG PO SCH ×2 (08:57→17:09)
[2018-03-20] MEDS: NORVASC PO SCH (08:58)
[2018-03-20] MEDS ORDERED: MIDODRINE PO SCH ×2 (09:00)
[2018-03-20] MEDS ORDERED: ZESTRIL PO SCH (09:00)
--- NOTE | 2018-03-20 09:52 | PN ---
DATE OF SERVICE: 03/18/18 SUBJECTIVE: The patient was admitted with syncope and dehydration. The patient been more awake and alert but the patient did not remember and her family does not remember the last time the Seroquel IM was given. The patient is not fully awake or alert today. She has some kind of hysteria and her confused look per the family. REVIEW OF SYSTEMS: CONSTITUTIONAL: No fever, no chills. HEENT: Normal. ENDOCRINE: No weight gain, no weight loss. CVS: No angina symptoms. No CHF symptoms. No palpitations. No atypical chest pain for CAD. No shortness of breath. No PND, no orthopnea. RESPIRATORY: No cough, no hemoptysis. GI: No nausea, no vomiting. No abdominal pain. : No hematuria. No polyuria. MUSCULOSKELETAL: No joint swelling. PSYCHIATRIC: Not anxious. No depression. No suicidal thoughts. No homicidal thoughts. SKIN: Intact. No rash. PHYSICAL EXAMINATION: V/S: Blood pressure 137/74, respiratory rate 18, heart rate 92, temperature 98.6 with saturation 95 HEENT: Normocephalic, atraumatic. Mucosa dry. Pallor positive. No icterus. NECK: Supple. No JVD, no carotid bruit. No lymphadenopathy. LUNGS: Decreased and clear to auscultation. No rales or rhonchi. HEART: S1, S2 normal. No S3. Systolic murmur, gallop or regurgitation. ABDOMEN: Soft, nontender. Bowel sounds active. No rigidity. No rebound or guarding. No CVA tenderness. EXTREMITIES: No cyanosis, clubbing or pedal edema. MUSCULOSKELETAL: No joint swelling. NEUROLOGIC: Awake, alert, oriented times three. No focal deficit. LYMPHATIC: No lymph nodes palpable. SKIN: Intact. LABS: WBC 5.92, hgb 12.3, hct 37.6, plt count 193, sodium 140, potassium 4.2, chloride 105, bicarb 26, BUN 17, creatinine 1.51 and glucose 156 ASSESSMENT: 1. Status post fall 2. Dehydration 3. Orthostatic hypertension 4. Schizophrenia 5. Bipolar 6. Prosthetic aortic valve 7. USP anticoagulation 8. Atrial fibrillation PLAN: 1. IV fluids 2. Fall precautions 3. Continue the Xarelto 4. Accu-checks with coverage TIME SPENT: More than 35 minutes MTDD
[2018-03-20 10:22] VITALS: TEMP 98.4
[2018-03-20 10:23] VITALS: BP 102/63
--- NOTE | 2018-03-20 10:38 | PN ---
DATE OF SERVICE: 03/19/18 SUBJECTIVE: The patient is still having some orthostasis changes and dropping blood pressure from supine to standing 117/68 to 97/65 and heart rate went up to 77 to 99. The patient's son is in the room worried about patient's health. Explained about our plan in detail. REVIEW OF SYSTEMS: CONSTITUTIONAL: No fever, no chills. HEENT: Normal. ENDOCRINE: No weight gain, no weight loss. CVS: No angina symptoms. No CHF symptoms. No palpitations. No atypical chest pain for CAD. No shortness of breath. No PND, no orthopnea. RESPIRATORY: No cough, no hemoptysis. GI: No nausea, no vomiting. No abdominal pain. : No hematuria. No polyuria. MUSCULOSKELETAL: No joint swelling. PSYCHIATRIC: Not anxious. No depression. No suicidal thoughts. No homicidal thoughts. SKIN: Intact. No rash. PHYSICAL EXAMINATION: V/S: blood pressure 117/68, respiratory rate 20, heart rate 77, temperature 97.0 with saturation 98%. HEENT: Normocephalic, atraumatic. Mucosa dry. NECK: Supple. No JVD, no carotid bruit. No lymphadenopathy. LUNGS: Clear to auscultation. No rales or rhonchi. HEART: S1, S2 normal. No S3. Systolic murmur, gallop or regurgitation. ABDOMEN: Soft, nontender. Bowel sounds active. No rigidity. No rebound or guarding. No CVA tenderness. EXTREMITIES: No cyanosis, clubbing or pedal edema. MUSCULOSKELETAL: No joint swelling. NEUROLOGIC: Awake, alert, oriented times three. No focal deficit. LYMPHATIC: No lymph nodes palpable. SKIN: Intact. LABS: WBC 5.92, hgb 12.3, hct 37.6, plt count 193, sodium 140, potassium 4.2, chloride 105, bicarb 26, BUN 17, creatinine 1.25 and glucose 156. ASSESSMENT: 1. Status post fall 2. Orthostatic hypertension 3. Dehydration 4. Schizophrenia 5. Depression 6. Aortic valve replacement 7. History of liver cancer PLAN: 1. Decrease Norvasc to 5mg 2. Decreased Lisinopril to 20mg twice a day 3. Continue to monitor to the Orthostasis 4. The patient is supposed to be doing to the custodial today but given her continuous drop the orthostasis we will readjust her blood pressure medication before we send her back to the custodial. TIME SPENT: More than 35 minutes MARGO
[2018-03-20] MEDS: MICRO-K CAP PO SCH (11:06)
[2018-03-20] MEDS: XARELTO PO SCH (17:08)
--- NOTE | 2018-03-20 19:47 | PCM.HOSP ---
- Initial Hospital Care [id number] 70 Minutes Bedside (22208): 03/15 - Subsequent Care [id number] 35 Minutes per Day (21305): 03/16. 7/. /. 03/19 - Hospital Discharge [id number] More than 30 Minutes ([id number]): 03/20
--- NOTE | 2018-03-22 12:50 | PN ---
DATE OF SERVICE: 03/16/18 SUBJECTIVE: The patient was admitted yesterday from the emergency room for syncopal episode and orthostatic hypotension. The patient gets dehydrated very easily. The patient is a little better today, sitting in a chair and was able to eat by herself. REVIEW OF SYSTEMS: CONSTITUTIONAL: No fever, no chills. HEENT: Normal. ENDOCRINE: No weight gain, no weight loss. CVS: No angina symptoms. No CHF symptoms. No palpitations. No atypical chest pain for CAD. No shortness of breath. No PND, no orthopnea. RESPIRATORY: No cough, no hemoptysis. GI: No nausea, no vomiting. No abdominal pain. : No hematuria. No polyuria. MUSCULOSKELETAL: No joint swelling. PSYCHIATRIC: Not anxious. No depression. No suicidal thoughts. No homicidal thoughts. SKIN: Intact. No rash. PHYSICAL EXAMINATION: V/S: BP 126/60, respiratory rate 18, heart rate 60, temperature 97.8, saturation 99. HEENT: Normocephalic, atraumatic. Mucosa dry. Pallor positive. No icterus. NECK: Supple. No JVD, no carotid bruit. No lymphadenopathy. LUNGS: Decreased breath sounds. Clear to auscultation. No rales or rhonchi. HEART: S1, S2 normal. No S3. Systolic murmur positive. ABDOMEN: Soft, nontender. Bowel sounds active. No rigidity. No rebound or guarding. No CVA tenderness. EXTREMITIES: No cyanosis, clubbing or pedal edema. MUSCULOSKELETAL: No joint swelling. NEUROLOGIC: Awake, alert. No focal deficit. LYMPHATIC: No lymph nodes palpable. SKIN: Intact. LABS: White count 4.46, hemoglobin 11.1, hematocrit 34.5, platelet count 173. Sodium 140, potassium 3.4, chloride 106, bicarb 24, BUN 17, creatinine 1.12, glucose 150. ASSESSMENT: 1. SYNCOPE 2. ORTHOSTATIC HYPOTENSION 3. DEHYDRATION 4. CHRONIC KIDNEY DISEASE 5. ANEMIA 6. ORTHOSTATIC HYPOTENSION 7. DEHYDRATION 8. CHRONIC KIDNEY DISEASE 9. ANEMIA 10. AORTIC VALVE REPLACEMENT 11. PROSTHETIC VALVE 12. SCHIZOPHRENIA 13. BIPOLAR PLAN: 1. IV fluids 2. Out of bed to chair with help 3. Activity as tolerated TIME SPENT: More than 35 minutes MTDD
--- NOTE | 2018-03-22 13:53 | DS ---
DATE OF SERVICE: 03/20/18 FINAL DIAGNOSIS: 1. STATUS POST FALL 2. ORTHOSTATIC HYPOTENSION 3. DEHYDRATION 4. HISTORY OF DIABETES 5. HYPERTENSION 6. DYSLIPIDEMIA 7. OSTEOARTHRITIS 8. DJD SPINE 9. BIPOLAR DISORDER 10. DEPRESSION 11. ANXIETY 12. AORTIC VALVE REPLACEMENT 13. ATRIAL FIBRILLATION ON ELIQUIS 14. HEPATIC HEPATOMA 15. HISTORY OF PARTIAL HEPATECTOMY DISCHARGE INSTRUCTIONS: 1. Discharge the patient to [facility]. 2. Resume home medications at the shelter as per the list. 3. Accu-checks with coverage three times a day. 4. Will follow during shelter rounds within one week. MEDICATIONS AT DISCHARGE: Coreg 12.5 mg p.o. b.i.d. Lantus 60 units at bedtime Protonix Risperdal Lipitor Xarelto Norvasc Lasix Zestril Midodrine Zofran Potassium Seroquel Januvia MEDICATION CHANGES: Zestril 10 mg p.o. daily Amlodipine to 5 mg Do not continue Kayexalate or Carafate NEW PRESCRIPTIONS: Midodrine 2.5 mg p.o. b.i.d. DIET INSTRUCTIONS: Cardiac and diabetic diet. ACTIVITY: As much as tolerated. PT/OT please evaluate and treat. DISEASE SPECIFIC EDUCATION: Dehydration, orthostatic hypotension and fall risks have been discussed, verbalized understanding. HOSPITAL COURSE: This is a 72-year-old female who was recently discharged from the shelter, went home, was not feeling good. The patient does not usually drink water, fell down and hit her head and was having some pelvic pain. She came to the emergency room, seen by Dr. Jackson in the emergency room. No fractured bones. She was found to have dehydration with elevated BUN. At that time, the patient was in orthostatic hypotension with significant change. Blood pressure was 102/ 60. Heart rate 62 and 59. Standing the blood pressure dropped to 81/49, heart rate went up to 73. At that time, the patient was admitted to the hospital, started on IV fluids. With the given IV fluids, BUN got better. Blood pressure medication Lisinopril was made from 40 b.i.d. to 20 b.i.d., still having orthostatic issues, up and about walking. She was able to eat. As the patient was still having orthostatic issues, Lisinopril was changed to 10 mg daily, Norvasc cut down to 5 mg daily and we added Midodrine 2.5 mg which she did tolerate well. She did not have any problems. As the patient was doing good, did not have any problems, she was discharged back to the shelter at [facility]. Discussed having long-term care and long-term shelter placement. The patient and family verbalized understanding. TIME SPENT: MORE THAN 65 MINUTES MARGO
== END 2018-03-20 17:45 | DRG 149 ==
LOC: ED 23:16 → MEDSURG B 03-15 04:55
PROVIDERS: ADMIT Emergency Medicine; ATTEND Emergency Medicine
DX: R42 Dizziness and giddiness (principal); R53.1 Weakness; R55 Syncope and collapse; F41.8 Other specified anxiety disorders; F20.9 Schizophrenia, unspecified; F31.9 Bipolar disorder, unspecified; I25.2 Old myocardial infarction; I95.1 Orthostatic hypotension; E78.5 Hyperlipidemia, unspecified; E10.9 Type 1 diabetes mellitus without complications; I25.10 Atherosclerotic heart disease of native coronary artery without angina pectoris; I48.91 Unspecified atrial fibrillation; N18.9 Chronic kidney disease, unspecified; D64.9 Anemia, unspecified; M19.90 Unspecified osteoarthritis, unspecified site; M47.9 Spondylosis, unspecified; Z86.73 Personal history of transient ischemic attack (TIA), and cerebral infarction without residual deficits; Z79.4 Long term (current) use of insulin; Z91.81 History of falling; Z79.01 Long term (current) use of anticoagulants; Z95.2 Presence of prosthetic heart valve; Z85.05 Personal history of malignant neoplasm of liver
CPT/HCPCS: 36415; 80053; 81001; 82550; 82962; 84443; 84484; 85025; 87081; 93005; 93010; 97802; 99284

== ENCOUNTER 2023-12-15 13:43 | Observation (INO) ==
--- NOTE | 2023-12-15 14:17 | ED.PDOC ---
General ED Provider: Dr. JOSHUA ZIEGLER MD Chief Complaint: Altered Mental Status Stated Complaint: [facility] referred from [facility] for evaluation of altered mental status the past few days. Patient with a history of dehydration schizophrenia hypertension and renal insufficiency. No history of dyspnea, cough, fever, chills, falls, trauma and injury Time Seen by Provider: 12/15/23 14:16 Mode of Arrival: Wheelchair Information Source: Group Home Exam Limitations: Clinical condition Primary Care Provider: MARILIA KING MD Nursing and Triage Documentation Reviewed and Agree: Yes What is Opioid Naive?: *Opioid Naive implies the patient is not already taking opioids or not chronically receiving opioids on a daily basis. *PRN dosing is not "usually" associated with tolerance. *Patients are at higher risk of over-sedation and aspiration. What is Opioid Tolerant?: *Opioid Tolerance implies less than the expected response to an opioid. *Acquired tolerance is defined by the patient taking 60mg of oral morphine daily (or equianalgesic dose of another opioid) for 1 week or more. *Often associated with chronic pain. *May take more than usual dose to achieve desired pain control. Review of Systems Review Of Systems Constitutional: Reports Malaise and Weakness Eyes: Reports No symptoms Ears, Nose, Mouth, Throat: Reports No symptoms Respiratory: Reports No symptoms Cardiac: Reports No symptoms GI: Reports No symptoms : Reports No symptoms Musculoskeletal: Reports No symptoms Skin: Reports No symptoms Neurological: Reports Other Endocrine: Reports No symptoms Hematologic/Lymphatic: Reports No symptoms All Other Systems: Reviewed and Negative FOR[facility]LY [facility] Medical History Hypertension I10 - Essential (primary) hypertension (ICD-10) H/O aortic valve replacement Z95.2 - Presence of prosthetic heart valve (ICD-10) Hyperlipidemia E78.5 - Hyperlipidemia, unspecified (ICD-10) Depression F32.9 - Major depressive disorder, single episode, unspecified (ICD-10) Bipolar disorder F31.9 - Bipolar disorder, unspecified (ICD-10) Aortic stenosis I35.0 - Nonrheumatic aortic (valve) stenosis (ICD-10) 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 - Type 2 diabetes mellitus without complications (ICD-10) Social History Smoking and tobacco status: Never smoker Surgical History History of gastrointestinal surgery left lobectomy for liver cancer Z98.890 - Other specified postprocedural states (ICD-10) History of aortic valve replacement Z95.2 - Presence of prosthetic heart valve (ICD-10) Status post hysterectomy Z90.710 - Acquired absence of both cervix and uterus (ICD-10) History of section Z98.891 - History of uterine scar from previous surgery (ICD-10) Female Reproductive History Menstrual Hx Hysterectomy: Yes Hx Tubal Ligation: No Physical Exam Physical Exam Appearance: Reports Well-appearing Ill-appearing: None Pain Distress: None Eyes: Reports [facility], EOMI and Conjunctiva clear ENT: Reports Ears normal, Nose normal and Oropharynx normal Neck: Supple Respiratory: Reports Airway patent, Breath sounds clear and Breath sounds equal Cardiovascular: Reports RRR, Pulses normal, No rub and No murmur GI/: Reports Soft, Nontender, No masses and Bowel sounds normal Musculoskeletal: Reports Normal strength, ROM intact and No edema Skin: Reports Warm, Dry and Normal color Neurological: Reports Sensation intact, Reflexes intact and Cranial nerves intact (Patient is nonverbal but follows verbal commands well) Psychiatric: Reports Affect appropriate and Mood appropriate Physician Notification Case Discussed Physician Notified: Discussed with hospitalist Joan Vieira Time of Notification: 16:00 Comments: After results of laboratory data and CT scan findings recommendations for this patient. History with telemetry Critical Care Note Critical Care Note Total Critical Care Time (mins): 0 Course Course 12/15/23 14:32 12/15/23 14:32 Orders, Labs, Meds: Lab Review 12/15/23 12/15/23 12/15/23 14:15 14:32 14:57 WBC 4.60 RBC 3.16 L Hgb 9.2 L Hct 29.7 L MCV 94.0 MCH 29.1 MCHC 31.0 L RDW Coeff of Silvana 13.3 Plt Count 144 Immature Gran % (Auto) 0.2 Neut % (Auto) 69.8 Lymph % (Auto) 13.0 [place] % (Auto) 8.9 Eos % (Auto) 7.2 H Baso % (Auto) 0.9 Neut # (Auto) 3.2 Lymph # (Auto) 0.6 [place] # (Auto) 0.4 Eos # (Auto) 0.3 Baso # (Auto) 0.0 Immature Gran # (Auto) 0.0 Sodium 139.6 Potassium 3.66 Chloride 109.6 H Carbon Dioxide 24.5 Anion Gap 9.16 BUN 27.2 H Creatinine 1.40 H Estimated GFR (MDRD) 36.00 BUN/Creatinine Ratio 19.42 Glucose 250.3 H Calcium 9.44 Magnesium 2.23 Total Bilirubin 0.33 AST 22.5 ALT 16.4 Alkaline Phosphatase 50.8 L Troponin I 0.018 Total Protein 6.27 L Albumin 3.36 L Globulin 2.91 Albumin/Globulin Ratio 1.15 Lipase 74.4 Urine Color Yellow Urine Clarity Clear Urine pH 5.5 Ur Specific [place] 1.025 Urine Protein 3+ H Urine Glucose (UA) Negative Urine Ketones Negative Urine Blood Negative Urine Nitrite Negative Urine Bilirubin Negative Urine Urobilinogen 0.2 Ur Leukocyte Esterase Negative Ur Squamous Epith Cells 0-2 Influ A Molecular Assay Negative by naat Influ B Molecular Assay Negative by naat SARS CoV-2 RNA Rapid REANNA 12/15/23 15:34 WBC RBC Hgb Hct MCV MCH MCHC RDW Coeff of Silvana Plt Count Immature Gran % (Auto) Neut % (Auto) Lymph % (Auto) [place] % (Auto) Eos % (Auto) Baso % (Auto) Neut # (Auto) Lymph # (Auto) [place] # (Auto) Eos # (Auto) Baso # (Auto) Immature Gran # (Auto) Sodium Potassium Chloride Carbon Dioxide Anion Gap BUN Creatinine Estimated GFR (MDRD) BUN/Creatinine Ratio Glucose Calcium Magnesium Total Bilirubin AST ALT Alkaline Phosphatase Troponin I Total Protein Albumin Globulin Albumin/Globulin Ratio Lipase Urine Color Urine Clarity Urine pH Ur Specific [place] Urine Protein Urine Glucose (UA) Urine Ketones Urine Blood Urine Nitrite Urine Bilirubin Urine Urobilinogen Ur Leukocyte Esterase Ur Squamous Epith Cells Influ A Molecular Assay Influ B Molecular Assay SARS CoV-2 RNA Rapid REANNA Negative Orders Category Date Time Status PLACE PATIENT OBSERVATION .TO MEDSURG (MONITORED BED ADMISSION 12/15/23 16:01 Active ) EKG-(ED ONLY) Stat CARDIO 12/15/23 15:56 Ordered ACTIVITY .Early Mobilization for VTE Prevention CARE 12/15/23 16:01 Active GIVE HS SNACK 2100 CARE 12/15/23 16:02 Active INTAKE & OUTPUT Q8HR CARE 12/15/23 16:01 Active TELEMETRY MONITORING TELE CARE 12/15/23 16:01 Active VITAL SIGNS Q4HR CARE 12/15/23 16:02 Active ADA 1800 KATHY. DIET DIETARY 12/15/23 Dinner Ordered HS SNACK DIETARY 12/15/23 Dinner Ordered CBC W/ AUTO DIFF DAILY@0600 LAB 12/16/23 06:00 Ordered CBC W/ AUTO DIFF DAILY@0600 LAB 12/17/23 06:00 Ordered CBC W/ AUTO DIFF Stat LAB 12/15/23 14:32 Completed CMP [COMPREHENSIVE METABOLIC PANEL] Stat LAB 12/15/23 14:32 Completed COMPREHENSIVE METABOLIC PANEL DAILY@0600 LAB 12/16/23 06:00 Ordered COMPREHENSIVE METABOLIC PANEL DAILY@0600 LAB 12/17/23 06:00 Ordered COVID [SARS COV-2 RNA RAPID REANNA] Stat LAB 12/15/23 15:34 Completed FLU A & B MOLECULAR [FLU A/B MOLECULAR] Stat LAB 12/15/23 14:57 Completed LIPASE Stat LAB 12/15/23 14:32 Completed MAGNESIUM Stat LAB 12/15/23 14:32 Completed TROPONIN I Stat LAB 12/15/23 14:32 Completed URINALYSIS C & S IF INDICATED Stat LAB 12/15/23 14:15 Completed Acetaminophen [Tylenol] Meds 12/15/23 16:01 Active 650 mg PO Q4H PRN Olanzapine [Zyprexa] Meds 12/15/23 16:01 Active 5 mg IM ONCE PRN Ondansetron HCl/Pf [Zofran 4 mg/2 ml] Meds 12/15/23 16:01 Active 4 mg IVP Q6H PRN Sodium Chloride 0.9% [Sodium Chloride] 1,000 ml Meds 12/15/23 16:30 Active IV 100 mls/hr Sodium Chloride 0.9% [Sodium Chloride] 1,000 ml Meds 12/15/23 14:20 Active IV 250 mls/hr CHEST, 1V AP ONLY Stat RADS 12/15/23 14:[address] HEAD W/O CONTRAST Stat RADS 12/15/23 14:20 Completed Medications Generic Name Dose Route Start Last Admin Trade Name Freq PRN Reason Stop Dose Admin Acetaminophen 650 mg 12/15/23 16:01 Acetaminophen 325 Mg Tablet PO Q4H PRN Mild Pain Sodium Chloride 1,000 mls @ 250 mls/hr 12/15/23 14:20 12/15/23 14:56 Sodium Chloride IV 12/15/23 18:19 250 mls/hr .Q4H ONE Administration Sodium Chloride 1,000 mls @ 100 mls/hr 12/15/23 16:30 Sodium Chloride IV .Q10H DONOVAN Olanzapine 5 mg 12/15/23 16:01 Olanzapine 10 Mg Vial IM ONCE PRN Agitation Ondansetron HCl 4 mg 12/15/23 16:01 Ondansetron Hcl/Pf 4 Mg/2 Ml Sdv IVP Q6H PRN Nausea / Vomiting Vital Signs: Temp Pulse Resp BP Pulse Ox 12/15/23 13:49 97.0 F L 58 L 24 H 148/60 H 97 Physician Progress Note: History obtained from the nursing staff. Patient with history of hypertension type 2 diabetes presents emergency has had altered mental status the past couple days. Nursing staff states that patient has been acting right. There is no history of fall, injury, fever, coughing, dyspnea, nausea, vomiting. Patient given IV fluids, saline 1 L at 250 mill/hour All other data review there is been no change in patient anemia hemoglobin 9.2 the BMP is normal except for glucose of 250 the BUN is 27 creatinine 1.4 with GFR is 36, GFR is 48 on date 12/01/2023 Portable chest x-ray interpretation per radiology shows no acute cardiopulmonary process. The head CT scan without intravenous contrast by radiologist is consistent with cerebral atrophy no evidence of intracranial hemorrhage, infarction, mass effect, midline shift. Differential diagnosis: 1) altered mental status 2) dehydration Discussed with the on-call hospitalist Wilmer Vieira at 1600 for observation [] Discharge Plan Discharge Prescriptions: No Action Xarelto 15 MG tablet 15 mg PO 1700 carvedilol 12.5 MG tablet 25 mg PO BID Qty: 60 insulin glargine [Lantus U-100 Insulin] 1 UNIT solution 16 unit subcut BEDTIME Qty: 1 Hold Instructions: not on NH list risperidone microspheres [Risperdal Consta] 50 MG/2 ML syringe 50 mg IM biweekly Qty: 2 quetiapine [Seroquel XR] 150 MG tablet extended release 24 hr 150 mg PO BEDTIME Qty: 30 0RF Hold Instructions: not on NH list amlodipine 5 MG tablet 5 mg PO DAILY Qty: 30 0RF Rx Instructions: GIVE ONE TABLET BY MOUTH DAILY lisinopril 10 MG tablet 10 mg PO DAILY Qty: 30 0RF Rx Instructions: GIVE ONE TABLET BY MOUTH DAILY THIS IS A DECREASE IN THE PATIENT'S USUAL 40 MG PO BID (HOME MEDICATION) atorvastatin [Lipitor] 20 MG tablet 20 mg PO BEDTIME Hold Instructions: not on NH list Januvia 50 MG tablet 50 mg PO DAILY Qty: 30 0RF Hold Instructions: not on NH list Rx Instructions: TAKE ONE TABLET BY MOUTH DAILY ergocalciferol (vitamin D2) 1,250 mcg (50,000 unit) capsule 1,250 mcg PO ONCE ferrous sulfate [FeroSul] 325 mg (65 mg iron) tablet 325 mg PO BID omeprazole 10 mg capsule,delayed release(DR/EC) 10 mg PO DAILY pravastatin 40 mg tablet 40 mg PO BEDTIME fluoxetine [Prozac] 40 mg capsule 40 mg PO DAILY carboxymethylcellulose sodium [Refresh Tears] 0.5 % drops 2 drp BOTHEYES Q4HR PRN (Reason: eye irritation/redness) Tradjenta 5 mg tablet 5 mg PO DAILY potassium chloride 10 MEQ capsule, extended release 10 meq PO DAILY Rx Instructions: TAKE ONE CAPSULE BY MOUTH ON MONDAYS, WEDNESDAYS AND FRIDAYS WITH YOUR LASIX furosemide 20 MG tablet 20 mg PO QAM Rx Instructions: THIS IS NOT A NEW PRESCRIPTION. THIS IS INSTRUCTIONS FOR CHANGES IN YOUR LASIX ADMINISTRATION. TAKE ONE TABLET BY MOUTH EVERY OTHER DAY triamcinolone acetonide 0.1 % cream 1 applic TOPICAL BID ondansetron HCl 4 mg tablet 4 mg PO Q6H PRN (Reason: nausea/vomiting) Did you review [place] [employer] for ALL controlled substances?: Not Applicable ED Provider: JOSHUA ZIEGLER U[place]i Coma Scale [place]i Coma Scale Response Scores: Best Response = 15 Comatose Client = 8 or Less Totally Unresponsive = 3
[2023-12-15 14:42] LABS: BASOPHILS % (AUTO) 0.9 % (0.0-3.0); EOSINOPHILS # (AUTO) 0.3 K/ul (0.0-0.7); EOSINOPHILS % (AUTO) 7.2 % (0.0-7.0); HEMATOCRIT 29.7 % (37.0-47.0); HEMOGLOBIN 9.2 g/dl (12.0-16.0); IMMATURE GRANULOCYTE % (AUTO) 0.2 % (0.0-5.0); LYMPHOCYTES # (AUTO) 0.6 K/uL (0.60-3.4); MEAN CORPUSCULAR HEMOGLOBIN 29.1 pg (27.0-31.0); MONOCYTES # (AUTO) 0.4 K/uL (0.4-2.0); MONOCYTES % (AUTO) 8.9 (0-10); NEUTROPHILS # (AUTO) 3.2 K/ul (2.0-6.9); NEUTROPHILS % (AUTO) 69.8 % (42.2-75.2); PLATELET COUNT 144 10^3/uL (140-440); RDW COEFFICIENT OF VARIATION 13.3 % (11.6-14.8); RED BLOOD COUNT 3.16 10^6/ul (4.20-5.40)
[2023-12-15 14:42] LABS: BILIRUBIN,URINE Negative (NEGATIVE); CLARITY,URINE Clear (CLEAR); COLOR,URINE Yellow (YELLOW); GLUCOSE, URINE (UA) Negative (NEGATIVE); KETONES,URINE Negative (NEGATIVE); LEUKOCYTE ESTERASE ,URINE Negative (NEGATIVE); NITRITE,URINE Negative (NEGATIVE); PH,URINE 5.5 (5-9); PROTEIN,URINE 3+ (NEGATIVE); URINE, BLOOD Negative (NEGATIVE); UROBILINOGEN,URINE 0.2 (0.2)
[2023-12-15 14:50] LABS: SQUAMOUS EPITHELIAL CELL,UR 0-2 (0-5)
[2023-12-15 14:54] LABS: ALANINE AMINOTRANSFERASE 16.4 U/L (0-35); ALBUMIN 3.36 g/dL (3.5-5.0); ALKALINE PHOSPHATASE 50.8 U/L (53-141); ASPARTATE AMINO TRANSFERASE 22.5 U/L (14-36); BILIRUBIN,TOTAL 0.33 mg/dL (0.2-1.3); BLOOD UREA NITROGEN 27.2 mg/dL (7-17); CALCIUM 9.44 mg/dL (8.4-10.2); CARBON DIOXIDE 24.5 mmol/L (22-30.0); CHLORIDE 109.6 mmol/L (98-107); CREATININE 1.4 mg/dL (0.60-1.30); GLUCOSE 250.3 mg/dL (74-106); LIPASE 74.4 U/L (23-300); MAGNESIUM 2.23 mg/dL (1.6-2.3); POTASSIUM 3.66 mmol/L (3.5-5.1); SODIUM 139.6 mmol/L (134.5-145); TOTAL PROTEIN 6.27 g/dL (6.3-8.2)
[2023-12-15] MEDS: SODIUM CHLORIDE 1,000 ML IV ONE (14:56)
[2023-12-15 15:05] LABS: TROPONIN I 0.018 ng/ml (0.0000-0.120)
--- NOTE | 2023-12-15 15:07 | CT ---
EXAMINATION: HEAD CT WITHOUT CONTRAST HISTORY: Altered mental status. TECHNIQUE: Noncontrast CT of the brain was performed with images acquired from skull base to vertex. 2-D coronal and sagittal reformatted images were obtained from the axial source images. Contrast Dose: None. CT Dose Reduction Techniques Performed: Yes. COMPARISON: None. FINDINGS: There is mild atrophy. There is extensive chronic periventricular small vessel ischemic disease. Th ere are no masses, mass effect or midline shift. There is no evidence for intracranial hemorrhage or acute cerebral or cerebellar infarction. There are no extra-axial fluid collections or subdural hem atomas. There are no cerebral contusions and there are no skull fractures. Trace fluid in the mastoi ds. IMPRESSION: 1. Atrophy and senescent changes. No acute intracranial pathology. All CT scans are performed using dose optimization techniques as appropriate to the performed exam an d include at least one of the following: Automated exposure control, adjustment of the mA and/or kV according t o size, and the use of iterative reconstruction technique.
--- NOTE | 2023-12-15 15:08 | DI ---
EXAM: CHEST RADIOGRAPH TECHNIQUE: Single frontal chest radiograph. HISTORY: Cough. COMPARISON: 12/01/2023 and older studies. FINDINGS: The patient is leaning and rotated to the left. Several calcified granulomas bilaterally, again note d. No pulmonary infiltrate is identified. No pleural effusion or pneumothorax is seen. Small calcified pleural plaques bilaterally, again note d. Stable cardiomegaly. Sternotomy, again noted. No acute displaced rib fractures are identified. Diffuse osteopenia. IMPRESSION: 1. No acute findings in the chest. 2. Stable cardiomegaly. 3. Calcified pleural plaques bilaterally, again noted, suggesting prior asbestos exposure.
[2023-12-15 15:18] LABS: MOLECULAR FLU A NEGATIVE BY NAAT (NEGATIVE); MOLECULAR FLU B NEGATIVE BY NAAT (NEGATIVE)
[2023-12-15 15:52] LABS: SARS COV-2 RNA RAPID NAAT NEGATIVE (NEGATIVE)
[2023-12-15] MEDS ORDERED: ZOFRAN 4 MG/2 ML IVP PRN (16:01)
[2023-12-15] MEDS ORDERED: TYLENOL PO PRN (16:01)
[2023-12-15 17:31] VITALS: BMI 23.2
--- NOTE | 2023-12-15 17:32 | PCM ---
Date of Service Date Seen by Provider: 12/15/23 Time Seen by Provider: 16:10 Admit Day/Time Admission Date: 12/15/23 Admission Time: 16:00 Reason for Admission Chief Complaint: DEHYDRATION Hospital Provider Hospital Provider: MAYE HOLLIDAY, [facility] [place] Primary Care Physician: MARILIA MILLS MD History of Present Illness History of Present Illness: 78 yo female presented to ER from [facility] for altered mental status. correction reports that she has not been acting like herself, "restless, slow to respond". Patient has pmh of TIA, schizophrenia, aortic stenosis. CT head completed and negative for acute findings. No labs or imaging indicative of infection. Mildly dehydrated compared to previous visit on 11/30 for choking episode. Admitted to med/surg observation for dehydration. Patient unable to provide HPI and will not respond to provider upon exam. Case Discussed With Case Discussed With: Patient's case was discussed with the ER Physicians, Dr. Gomez. 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 - Type 2 diabetes mellitus without complications (ICD-10) Surgical History History of gastrointestinal surgery left lobectomy for liver cancer Z98.890 - Other specified postprocedural states (ICD-10) History of aortic valve replacement Z95.2 - Presence of prosthetic heart valve (ICD-10) Status post hysterectomy Z90.710 - Acquired absence of both cervix and uterus (ICD-10) History of section Z98.891 - History of uterine scar from previous surgery (ICD-10) Social History Smoking and tobacco status: Never smoker Allergies Allergies Allergy/AdvReac Type Severity Reaction Status Date / Time influenza virus vaccine, AdvReac Verified 12/15/23 13:47 specific [Influenza Virus Vacc,Specific] Sulfa (Sulfonamide AdvReac Verified 12/15/23 13:47 Antibiotics) Influenza Virus Vacc,Specific AdvReac Uncoded 12/15/23 13:47 Sulfa (Sulfonamide AdvReac Uncoded 12/15/23 13:47 Antibiotics) Current Medications Home Medications rivaroxaban 15 mg tablet (Xarelto) 15 mg PO 1700 11/10/16 [History Confirmed 12/15/23 Last Taken 02/16/18] carvedilol 12.5 mg tablet 25 mg PO BID #60 tab-caps 06/29/17 [History Confirmed 12/15/23 Last Taken Unknown] atorvastatin 20 mg tablet (Lipitor) 20 mg PO BEDTIME 11/15/17 [History Confirmed 12/15/23 Last Taken 02/15/18] sitagliptin phosphate 50 mg tablet (Januvia) 50 mg PO DAILY #30 tabs 01/23/18 [Rx Confirmed 12/15/23 Last Taken 02/16/18] quetiapine 150 mg tablet,extended release 24 hr (Seroquel XR) 150 mg PO BEDTIME ##30 02/21/18 [Rx Confirmed 12/15/23 Last Taken Unknown] amlodipine 5 mg tablet 5 mg PO DAILY ##30 03/20/18 [Rx Confirmed 12/15/23 Last Taken Unknown] lisinopril 10 mg tablet 10 mg PO DAILY #30 tabs 03/20/18 [Rx Confirmed 12/15/23 Last Taken Unknown] insulin glargine 100 unit/mL subcutaneous solution (Lantus U-100 Insulin) 16 unit subcut BEDTIME #1 mL 04/06/18 [History Confirmed 12/15/23 Last Taken Unknown] risperidone microspheres 50 mg/2 mL intramuscular susp,ext release (Risperdal Consta) 50 mg IM biweekly #2 vials 04/06/18 [History Confirmed 12/15/23 Last Taken Unknown] ergocalciferol (vitamin D2) 1,250 mcg (50,000 unit) capsule 1,250 mcg PO ONCE 12/01/23 [History Confirmed 12/15/23 Last Taken Unknown] carboxymethylcellulose sodium 0.5 % eye drops (Refresh Tears) 2 drp BOTHEYES Q4HR PRN eye irritation/redness 12/15/23 [History Confirmed 12/15/23 Last Taken Unknown] ferrous sulfate 325 mg (65 mg iron) tablet (FeroSul) 325 mg PO BID 12/15/23 [History Confirmed 12/15/23 Last Taken Unknown] fluoxetine 40 mg capsule (Prozac) 40 mg PO DAILY 12/15/23 [History Confirmed 12/15/23 Last Taken Unknown] furosemide 20 mg tablet 20 mg PO QAM 12/15/23 [History Confirmed 12/15/23 Last Taken Unknown] linagliptin 5 mg tablet (Tradjenta) 5 mg PO DAILY 12/15/23 [History Confirmed 12/15/23 Last Taken Unknown] omeprazole 10 mg capsule,delayed release 10 mg PO DAILY 12/15/23 [History Confirmed 12/15/23 Last Taken Unknown] ondansetron HCl 4 mg tablet 4 mg PO Q6H PRN nausea/vomiting 12/15/23 [History Confirmed 12/15/23 Last Taken Unknown] potassium chloride 10 mEq capsule,extended release 10 meq PO DAILY 12/15/23 [History Confirmed 12/15/23 Last Taken Unknown] pravastatin 40 mg tablet 40 mg PO BEDTIME 12/15/23 [History Confirmed 12/15/23 Last Taken Unknown] triamcinolone acetonide 0.1 % topical cream 1 applic topical BID 12/15/23 [History Confirmed 12/15/23 Last Taken Unknown] Home Acetaminophen (Acetaminophen 325 Mg Tablet) 650 mg PO Q4H PRN PRN Reason: Mild Pain Sodium Chloride (Sodium Chloride) 1,000 mls @ 250 mls/hr IV .Q4H ONE Stop: 12/15/23 18:19 Last Admin: 12/15/23 14:56 Dose: 250 mls/hr Sodium Chloride (Sodium Chloride) 1,000 mls @ 100 mls/hr IV .Q10H DONOVAN Olanzapine (Olanzapine 10 Mg Vial) 5 mg IM ONCE PRN PRN Reason: Agitation Ondansetron HCl (Ondansetron Hcl/Pf 4 Mg/2 Ml Sdv) 4 mg IVP Q6H PRN PRN Reason: Nausea / Vomiting Opioid Naive vs. Tolerant Does Patient Take Opioids?: No Is Patient Opioid Naive?: Yes What is Opioid Naive?: *Opioid Naive implies the patient is not already taking opioids or not chronically receiving opioids on a daily basis. *PRN dosing is not "usually" associated with tolerance. *Patients are at higher risk of over-sedation and aspiration. Is Patient Opioid Tolerant?: No What is Opioid Tolerant?: *Opioid Tolerance implies less than the expected response to an opioid. *Acquired tolerance is defined by the patient taking 60mg of oral morphine daily (or equianalgesic dose of another opioid) for 1 week or more. *Often associated with chronic pain. *May take more than usual dose to achieve desired pain control. Physical examination Most Recent Vital Signs: Most Recent Vital Signs Temperature 97.0 F L 12/15/23 17:08 Temperature Source Temporal Artery Scan 12/15/23 17:08 Temperature Source Infrared 12/15/23 13:49 Pulse Rate 60 12/15/23 17:08 Respiratory Rate 14 12/15/23 17:08 Blood Pressure 148/60 H 12/15/23 13:49 Blood Pressure Left Arm 168/81 12/15/23 17:08 Blood Pressure Position Supine 12/15/23 17:08 O2 Sat by Pulse Oximetry 98 12/15/23 17:08 Oxygen Delivery Method Room Air 12/15/23 17:08 Height 5 ft 6 in 12/15/23 17:08 Weight 144 lb 12/15/23 17:08 Telemetry Heart Rate 54 L 09/07/23 15:19 Telemetry SPO2 98 09/07/23 15:19 Appearance: Positive No Apparent Distress and Ill-Appearing Skin: Positive Warm and Good Turgor HEENT: Positive Normocephalic and PERRLA Neck: Positive Supple and Midline Trachea Chest/Lungs: Positive Symmetrical With Equal Breath Sounds, Clear to Auscultation Bilaterally and Good Air Movement all 4 Lung [place] Heart: Positive RRR, Pulses Normal and Murmur GI/: Positive Soft, Nontender, Bowel Sounds Normal, No Distention and No Organomegaly Musculoskeletal: Positive Not Examined Extremities: Positive Edema (+2 pitting BLE), Intact Peripheral Pulses and Stable Joints Without Laxity Neurological: Positive Sensation Intact, Motor intact, Alert and Other (able to follow some commands, nonverbal, generalized weakness noted when asked to squeeze hands for strength test) Psychiatric: Positive Other (flat, nonverbal) Labs This Visit Labs This Visit: Labs This Visit 04/07/2912/15/23 12/15/23 14:15 14:32 14:57 WBC 4.60 RBC 3.16 L Hgb 9.2 L Hct 29.7 L MCV 94.0 MCH 29.1 MCHC 31.0 L RDW Coeff of Silvana 13.3 Plt Count 144 Immature Gran % (Auto) 0.2 Neut % (Auto) 69.8 Lymph % (Auto) 13.0 Stone % (Auto) 8.9 Eos % (Auto) 7.2 H Baso % (Auto) 0.9 Neut # (Auto) 3.2 Lymph # (Auto) 0.6 Stone # (Auto) 0.4 Eos # (Auto) 0.3 Baso # (Auto) 0.0 Immature Gran # (Auto) 0.0 Sodium 139.6 Potassium 3.66 Chloride 109.6 H Carbon Dioxide 24.5 Anion Gap 9.16 BUN 27.2 H Creatinine 1.40 H Estimated GFR (MDRD) 36.00 BUN/Creatinine Ratio 19.42 Glucose 250.3 H Calcium 9.44 Magnesium 2.23 Total Bilirubin 0.33 AST 22.5 ALT 16.4 Alkaline Phosphatase 50.8 L Troponin I 0.018 Total Protein 6.27 L Albumin 3.36 L Globulin 2.91 Albumin/Globulin Ratio 1.15 Lipase 74.4 Urine Color Yellow Urine Clarity Clear Urine pH 5.5 Ur Specific [place] 1.025 Urine Protein 3+ H Urine Glucose (UA) Negative Urine Ketones Negative Urine Blood Negative Urine Nitrite Negative Urine Bilirubin Negative Urine Urobilinogen 0.2 Ur Leukocyte Esterase Negative Ur Squamous Epith Cells 0-2 Influ A Molecular Assay Negative by naat Influ B Molecular Assay Negative by naat SARS CoV-2 RNA Rapid REANNA 12/15/23 15:34 WBC RBC Hgb Hct MCV MCH MCHC RDW Coeff of Silvana Plt Count Immature Gran % (Auto) Neut % (Auto) Lymph % (Auto) Stone % (Auto) Eos % (Auto) Baso % (Auto) Neut # (Auto) Lymph # (Auto) Stone # (Auto) Eos # (Auto) Baso # (Auto) Immature Gran # (Auto) Sodium Potassium Chloride Carbon Dioxide Anion Gap BUN Creatinine Estimated GFR (MDRD) BUN/Creatinine Ratio Glucose Calcium Magnesium Total Bilirubin AST ALT Alkaline Phosphatase Troponin I Total Protein Albumin Globulin Albumin/Globulin Ratio Lipase Urine Color Urine Clarity Urine pH Ur Specific [place] Urine Protein Urine Glucose (UA) Urine Ketones Urine Blood Urine Nitrite Urine Bilirubin Urine Urobilinogen Ur Leukocyte Esterase Ur Squamous Epith Cells Influ A Molecular Assay Influ B Molecular Assay SARS CoV-2 RNA Rapid REANNA Negative Review Statement Review Statement: I have independently reviewed and interpreted the labs/EKGs/imaging that were ordered by the ER provider. I have reviewed all outside records that are available currently in our EMR including imaging/notes/labs from previous visits. Plan Plan: 1. Acute vs Chronic Altered Mental Status/Dementia - treating dehydration to determine if condition due to fluid deficit, could be due to worsening mental decline/age, avoid neurologically altering agents if able 2. Dehydration - mild, NS@100mL/hr, will re-eval in am 3. DM2 - accuchecks qid with ssi, ada diet, continue home insulin regimen 4. Hypertension - chronic continue home medications 5. Schizoprenia - chronic, continue home medications DVT Prophylaxis: Xarelto Time Spent: Greater than 80 minutes spent with patient, 50% of the time spent with this patient was devoted to counseling and coordination of care. [facility] minutes spent discussing advance care planning. Disposition: Admit to: Med/Surg Observation Discussed Plan of Care with Dr. Malik Mills. Medications Medication Orders: Medications Ordered Category Date Time Status Acetaminophen [Tylenol] Meds 12/15/23 16:01 Active 650 mg PO Q4H PRN Olanzapine [Zyprexa] Meds 12/15/23 16:01 Active 5 mg IM ONCE PRN Ondansetron HCl/Pf [Zofran 4 mg/2 ml] Meds 12/15/23 16:01 Active 4 mg IVP Q6H PRN Sodium Chloride 0.9% [Sodium Chloride] 1,000 ml Meds 12/15/23 16:30 Active IV 100 mls/hr Sodium Chloride 0.9% [Sodium Chloride] 1,000 ml Meds 12/15/23 14:20 Active IV 250 mls/hr
[2023-12-15] MEDS ORDERED: HUMULIN R SUBCUT PRN (17:40)
[2023-12-15] MEDS: ZYPREXA IM PRN (20:23)
[2023-12-15] MEDS: FERROUS SULFATE PO SCH (20:23)
[2023-12-15] MEDS: PRAVACHOL PO SCH (20:23)
[2023-12-15] MEDS: COREG PO SCH (20:23)
[2023-12-15] MEDS: KENALOG TP ONE (21:08)
[2023-12-15] MEDS: KENALOG TP SCH (21:12)
[2023-12-15] MEDS ORDERED: KENALOG TP SCH (21:30)
[2023-12-15] MEDS: SODIUM CHLORIDE 1,000 ML IV SCH (23:56)
[2023-12-16] MEDS: PRILOSEC PO SCH (05:09)
[2023-12-16 05:39] LABS: BASOPHILS % (AUTO) 0.9 % (0.0-3.0); EOSINOPHILS # (AUTO) 0.5 K/ul (0.0-0.7); HEMATOCRIT 33.3 % (37.0-47.0); HEMOGLOBIN 10.3 g/dl (12.0-16.0); IMMATURE GRANULOCYTE % (AUTO) 0.2 % (0.0-5.0); LYMPHOCYTES # (AUTO) 0.8 K/uL (0.60-3.4); LYMPHOCYTES % (AUTO) 18.9 (10.0-50.0); MEAN CORPUSCULAR HEMOGLOBIN 28.4 pg (27.0-31.0); MEAN CORPUSCULAR HGB CONC 30.9 (31.8-35.4); MEAN CORPUSCULAR VOLUME 91.7 fl (81.0-99.0); MONOCYTES # (AUTO) 0.5 K/uL (0.4-2.0); MONOCYTES % (AUTO) 11.7 (0-10); NEUTROPHILS # (AUTO) 2.5 K/ul (2.0-6.9); NEUTROPHILS % (AUTO) 56.3 % (42.2-75.2); PLATELET COUNT 155 10^3/uL (140-440); RDW COEFFICIENT OF VARIATION 13.2 % (11.6-14.8); RED BLOOD COUNT 3.63 10^6/ul (4.20-5.40); WHITE BLOOD COUNT 4.35 K/ul (4.6-10.2)
[2023-12-16 05:51] LABS: ALANINE AMINOTRANSFERASE 16.5 U/L (0-35); ALBUMIN 3.46 g/dL (3.5-5.0); ALKALINE PHOSPHATASE 48.6 U/L (53-141); ASPARTATE AMINO TRANSFERASE 21.1 U/L (14-36); BILIRUBIN,TOTAL 0.56 mg/dL (0.2-1.3); BLOOD UREA NITROGEN 17.3 mg/dL (7-17); CALCIUM 9.23 mg/dL (8.4-10.2); CARBON DIOXIDE 24.7 mmol/L (22-30.0); CHLORIDE 112.1 mmol/L (98-107); CREATININE 1.02 mg/dL (0.60-1.30); GLUCOSE 134.4 mg/dL (74-106); POTASSIUM 3.37 mmol/L (3.5-5.1); SODIUM 141.1 mmol/L (134.5-145); TOTAL PROTEIN 6.73 g/dL (6.3-8.2)
[2023-12-16] MEDS: NORVASC PO ONE (06:23)
--- NOTE | 2023-12-16 08:42 | DCSUM ---
Admission Date Admission Date: 12/15/23 Discharge Date Discharge Date: 12/16/23 Admission Diagnosis Admission Diagnosis: 1. Acute vs Chronic Altered Mental Status/Dementia 2. Dehydration 3. DM2 4. Hypertension 5. Schizoprenia Discharge Diagnosis Discharge Diagnosis: 1. Acute vs Chronic Altered Mental Status/Dementia - Resolved 2. Dehydration - Resolved 3. DM2 - chronic, stable 4. Hypertension - chronic, stable 5. Schizoprenia - chronic, stable Hospital Provider Hospital Provider: MAYE HOLLIDAY, [place] [facility] Primary Care Physician Primary Care Physician: MARILIA KING MD Summary of History and Physical Summary of History and Physical: 78 yo female presented to ER from [facility] for altered mental status. [facility] reports that she has not been acting like herself, "restless, slow to respond". Patient has pmh of TIA, schizophrenia, aortic stenosis. CT head completed and negative for acute findings. No labs or imaging indicative of infection. Mildly dehydrated compared to previous visit on 11/30 for choking episode. Admitted to med/surg observation for dehydration. Patient unable to provide HPI and will not respond to provider upon exam. Hospital Course Subjective: Patient received IV fluids at 100mL/hr in addition to fluids in the ER. Renal function improved overnight. Patient is back to baseline. Answering yes or no questions. Became agitated and pulled out IV. BP slightly elevated this am. Received norvasc and improved. No changes made to home medications. Hold lasix today and restart tomorrow. Appearance: Pleasant, No Apparent Distress and Alert HEENT: MMM and Supple CVS: No Murmur Abdomen: Soft, Non-Tender and No Distention Respiratory: No Dyspnea Extremities: No Edema Vital Signs: Most Recent Vital Signs Temperature 97.6 F 12/16/23 05:44 Temperature Source Temporal Artery Scan 12/16/23 05:44 Temperature Source Infrared 12/15/23 13:49 Pulse Rate 60 12/16/23 05:44 Respiratory Rate 20 12/16/23 05:44 Blood Pressure 189/82 H 12/16/23 05:44 Blood Pressure Mean 117 12/16/23 05:44 Blood Pressure Left Arm 168/81 12/15/23 17:08 Blood Pressure Location Left Arm 12/16/23 05:44 Blood Pressure Position Supine 12/16/23 05:44 O2 Sat by Pulse Oximetry 98 12/16/23 05:44 Oxygen Delivery Method Room Air 12/16/23 07:09 Height 5 ft 6 in 12/15/23 17:08 Weight 144 lb 12/15/23 17:08 Telemetry Type Remote Telemetry 12/16/23 07:00 Telemetry Monitoring Continues 12/16/23 07:00 Telemetry Heart Rate 48 L 12/16/23 07:00 Telemetry SPO2 98 09/07/23 15:19 EKG MI Interval 0.21 H 12/16/23 01:00 EKG QRS Interval 0.13 H 12/16/23 07:00 Telemetry Strip Reading Atrial Fib with BBB/PVC with Bradycardia 12/16/23 07:00 Imaging: EXAMINATION: HEAD CT WITHOUT CONTRAST HISTORY: Altered mental status. TECHNIQUE: Noncontrast CT of the brain was performed with images acquired from skull base to vertex. 2-D coronal and sagittal reformatted images were obtained from the axial source images. Contrast Dose: None. CT Dose Reduction Techniques Performed: Yes. COMPARISON: None. FINDINGS: There is mild atrophy. There is extensive chronic periventricular small vessel ischemic disease. There are no masses, mass effect or midline shift. There is no evidence for intracranial hemorrhage or acute cerebral or cerebellar infarction. There are no extra-axial fluid collections or subdural hematomas. There are no cerebral contusions and there are no skull fractures. Trace fluid in the mastoids. IMPRESSION: 1. Atrophy and senescent changes. No acute intracranial pathology. EXAM: CHEST RADIOGRAPH TECHNIQUE: Single frontal chest radiograph. HISTORY: Cough. COMPARISON: 12/01/2023 and older studies. FINDINGS: The patient is leaning and rotated to the left. Several calcified granulomas bilaterally, again noted. No pulmonary infiltrate is identified. No pleural effusion or pneumothorax is seen. Small calcified pleural plaques bilaterally, again noted. Stable cardiomegaly. Sternotomy, again noted. No acute displaced rib fractures are identified. Diffuse osteopenia. IMPRESSION: 1. No acute findings in the chest. 2. Stable cardiomegaly. 3. Calcified pleural plaques bilaterally, again noted, suggesting prior asbestos exposure. Lab Results Last 24 Hours: 12/16/23 12/15/23 12/15/23 05:12 15:34 14:57 WBC 4.35 L RBC 3.63 L Hgb 10.3 L Hct 33.3 L MCV 91.7 MCH 28.4 MCHC 30.9 L RDW Coeff of Silvana 13.2 Plt Count 155 Immature Gran % (Auto) 0.2 Neut % (Auto) 56.3 Lymph % (Auto) 18.9 [place] % (Auto) 11.7 H Eos % (Auto) 12.0 H Baso % (Auto) 0.9 Neut # (Auto) 2.5 Lymph # (Auto) 0.8 [place] # (Auto) 0.5 Eos # (Auto) 0.5 Baso # (Auto) 0.0 Immature Gran # (Auto) 0.0 Sodium 141.1 Potassium 3.37 L Chloride 112.1 H Carbon Dioxide 24.7 Anion Gap 7.67 BUN 17.3 H Creatinine 1.02 Estimated GFR (MDRD) 52.00 BUN/Creatinine Ratio 16.96 Glucose 134.4 H D Calcium 9.23 Magnesium Total Bilirubin 0.56 AST 21.1 ALT 16.5 Alkaline Phosphatase 48.6 L Troponin I Total Protein 6.73 Albumin 3.46 L Globulin 3.27 Albumin/Globulin Ratio 1.05 Lipase Urine Color Urine Clarity Urine pH Ur Specific [place] Urine Protein Urine Glucose (UA) Urine Ketones Urine Blood Urine Nitrite Urine Bilirubin Urine Urobilinogen Ur Leukocyte Esterase Ur Squamous Epith Cells Influ A Molecular Assay Negative by naat Influ B Molecular Assay Negative by naat SARS CoV-2 RNA Rapid REANNA Negative 12/15/23 12/15/23 14:32 14:15 WBC 4.60 RBC 3.16 L Hgb 9.2 L Hct 29.7 L MCV 94.0 MCH 29.1 MCHC 31.0 L RDW Coeff of Silvana 13.3 Plt Count 144 Immature Gran % (Auto) 0.2 Neut % (Auto) 69.8 Lymph % (Auto) 13.0 [place] % (Auto) 8.9 Eos % (Auto) 7.2 H Baso % (Auto) 0.9 Neut # (Auto) 3.2 Lymph # (Auto) 0.6 [place] # (Auto) 0.4 Eos # (Auto) 0.3 Baso # (Auto) 0.0 Immature Gran # (Auto) 0.0 Sodium 139.6 Potassium 3.66 Chloride 109.6 H Carbon Dioxide 24.5 Anion Gap 9.16 BUN 27.2 H Creatinine 1.40 H Estimated GFR (MDRD) 36.00 BUN/Creatinine Ratio 19.42 Glucose 250.3 H Calcium 9.44 Magnesium 2.23 Total Bilirubin 0.33 AST 22.5 ALT 16.4 Alkaline Phosphatase 50.8 L Troponin I 0.018 Total Protein 6.27 L Albumin 3.36 L Globulin 2.91 Albumin/Globulin Ratio 1.15 Lipase 74.4 Urine Color Yellow Urine Clarity Clear Urine pH 5.5 Ur Specific [place] 1.025 Urine Protein 3+ H Urine Glucose (UA) Negative Urine Ketones Negative Urine Blood Negative Urine Nitrite Negative Urine Bilirubin Negative Urine Urobilinogen 0.2 Ur Leukocyte Esterase Negative Ur Squamous Epith Cells 0-2 Influ A Molecular Assay Influ B Molecular Assay SARS CoV-2 RNA Rapid REANNA Discharge Instructions Discharge Planning: Discharge Planning > 40 minutes If patient is discharged with left ventricular systolic dysfunction: NA Discharged with a beta margarita? [] If no, why not? [] Discharged with an dylan/arb? [] If no, why not? [] DIET: PUREED ACTIVITY: TOLERATED FOLLOW-UP WITH PCP NEXT WEEK MEDICATIONS: NO CHANGES, HOLD LASIX TODAY, RESUME TOMORROW 12/16 Discharge Medications: Medications at Discharge (Home Meds & RX) rivaroxaban 15 mg tablet (Xarelto) 15 mg PO 1700 11/10/16 carvedilol 12.5 mg tablet 25 mg PO BID #60 tab-caps 06/29/17 atorvastatin 20 mg tablet (Lipitor) 20 mg PO BEDTIME 11/15/17 sitagliptin phosphate 50 mg tablet (Januvia) 50 mg PO DAILY #30 tabs 01/23/18 quetiapine 150 mg tablet,extended release 24 hr (Seroquel XR) 150 mg PO BEDTIME ##30 02/21/18 amlodipine 5 mg tablet 5 mg PO DAILY ##30 03/20/18 lisinopril 10 mg tablet 10 mg PO DAILY #30 tabs 03/20/18 insulin glargine 100 unit/mL subcutaneous solution (Lantus U-100 Insulin) 16 unit subcut BEDTIME #1 mL 04/06/18 risperidone microspheres 50 mg/2 mL intramuscular susp,ext release (Risperdal Consta) 50 mg IM biweekly #2 vials 04/06/18 ergocalciferol (vitamin D2) 1,250 mcg (50,000 unit) capsule 1,250 mcg PO ONCE 12/01/23 carboxymethylcellulose sodium 0.5 % eye drops (Refresh Tears) 2 drp BOTHEYES Q4HR PRN eye irritation/redness 12/15/23 ferrous sulfate 325 mg (65 mg iron) tablet (FeroSul) 325 mg PO BID 12/15/23 fluoxetine 40 mg capsule (Prozac) 40 mg PO DAILY 12/15/23 furosemide 20 mg tablet 20 mg PO QAM 12/15/23 linagliptin 5 mg tablet (Tradjenta) 5 mg PO DAILY 12/15/23 omeprazole 10 mg capsule,delayed release 10 mg PO DAILY 12/15/23 ondansetron HCl 4 mg tablet 4 mg PO Q6H PRN nausea/vomiting 12/15/23 potassium chloride 10 mEq capsule,extended release 10 meq PO DAILY 12/15/23 pravastatin 40 mg tablet 40 mg PO BEDTIME 12/15/23 triamcinolone acetonide 0.1 % topical cream 1 applic topical BID 12/15/23 Discharge Plan Discharge Discharge Orders: Discharge Patient (ONCE); Ordered 12/16/23 Ordered By: HOLLIS ROBIN Activity Restrictions/Additional Instructions: DIET: PUREED ACTIVITY: TOLERATED FOLLOW-UP WITH PCP NEXT WEEK MEDICATIONS: NO CHANGES, HOLD LASIX TODAY, RESUME TOMORROW 12/16 Instructions: Dehydration (GEN) Patient Disposition: TRANSFER [facility] Prescriptions: Continued Xarelto 15 MG tablet 15 mg PO 1700 carvedilol 12.5 MG tablet 25 mg PO BID Qty: 60 insulin glargine [Lantus U-100 Insulin] 1 UNIT solution 16 unit subcut BEDTIME Qty: 1 Hold Instructions: not on [facility] list risperidone microspheres [Risperdal Consta] 50 MG/2 ML syringe 50 mg IM biweekly Qty: 2 quetiapine [Seroquel XR] 150 MG tablet extended release 24 hr 150 mg PO BEDTIME Qty: 30 0RF Hold Instructions: not on [facility] list amlodipine 5 MG tablet 5 mg PO DAILY Qty: 30 0RF Rx Instructions: GIVE ONE TABLET BY MOUTH DAILY lisinopril 10 MG tablet 10 mg PO DAILY Qty: 30 0RF Rx Instructions: GIVE ONE TABLET BY MOUTH DAILY THIS IS A DECREASE IN THE PATIENT'S USUAL 40 MG PO BID (HOME MEDICATION) atorvastatin [Lipitor] 20 MG tablet 20 mg PO BEDTIME Hold Instructions: not on [facility] list Januvia 50 MG tablet 50 mg PO DAILY Qty: 30 0RF Hold Instructions: not on [place] list Rx Instructions: TAKE ONE TABLET BY MOUTH DAILY ergocalciferol (vitamin D2) 1,250 mcg (50,000 unit) capsule 1,250 mcg PO ONCE ferrous sulfate [FeroSul] 325 mg (65 mg iron) tablet 325 mg PO BID omeprazole 10 mg capsule,delayed release(DR/EC) 10 mg PO DAILY pravastatin 40 mg tablet 40 mg PO BEDTIME fluoxetine [Prozac] 40 mg capsule 40 mg PO DAILY carboxymethylcellulose sodium [Refresh Tears] 0.5 % drops 2 drp BOTHEYES Q4HR PRN (Reason: eye irritation/redness) Tradjenta 5 mg tablet 5 mg PO DAILY potassium chloride 10 MEQ capsule, extended release 10 meq PO DAILY Rx Instructions: TAKE ONE CAPSULE BY MOUTH ON MONDAYS, WEDNESDAYS AND FRIDAYS WITH YOUR LASIX furosemide 20 MG tablet 20 mg PO QAM Rx Instructions: THIS IS NOT A NEW PRESCRIPTION. THIS IS INSTRUCTIONS FOR CHANGES IN YOUR LASIX ADMINISTRATION. TAKE ONE TABLET BY MOUTH EVERY OTHER DAY triamcinolone acetonide 0.1 % cream 1 applic TOPICAL BID ondansetron HCl 4 mg tablet 4 mg PO Q6H PRN (Reason: nausea/vomiting) Did you review [place] [employer] for ALL controlled substances?: No Discussed opioids are addictive and Narcan is available by prescription or from pharmacy.: No
[2023-12-16] MEDS: KENALOG TP SCH (08:52)
[2023-12-16] MEDS: NORVASC PO SCH (08:57)
[2023-12-16] MEDS: K-DUR PO ONE (08:57)
[2023-12-16] MEDS: PROZAC PO SCH (08:57)
[2023-12-16] MEDS: ZESTRIL PO SCH (08:58)
[2023-12-16] MEDS ORDERED: DRISDOL PO SCH (09:00)
[2023-12-16 09:26] VITALS: BP 143/64; PULSE 52; RESP 18; TEMP 97.7
[2023-12-16] MEDS ORDERED: XARELTO PO SCH (17:00)
[2023-12-17] MEDS ORDERED: KENALOG TP SCH (09:00)
== END 2023-12-16 10:21 ==
LOC: ED 13:43 → MEDSURG B 13:43
PROVIDERS: ADMIT Hospitalist; ATTEND Nurse Practitioner Family
DX: Z20.822 Contact with and (suspected) exposure to COVID-19; E11.9 Type 2 diabetes mellitus without complications; Z86.73 Personal history of transient ischemic attack (TIA), and cerebral infarction without residual deficits; E86.0 Dehydration; I10 Essential (primary) hypertension; R41.82 Altered mental status, unspecified; F03.90 Unspecified dementia, unspecified severity, without behavioral disturbance, psychotic disturbance, mood disturbance, and anxiety; Z79.4 Long term (current) use of insulin; Z79.899 Other long term (current) drug therapy; Z51.81 Encounter for therapeutic drug level monitoring; F20.9 Schizophrenia, unspecified; Z79.01 Long term (current) use of anticoagulants

== ENCOUNTER 2024-09-06 00:02 | Inpatient (IN) ==
[2024-09-06] MEDS: ACETAMINOPHEN 1,000 MG/100 ML BAG IV ONE (00:32)
[2024-09-06] MEDS: SODIUM CHLORIDE 1,000 ML IV ONE (00:32)
[2024-09-06 00:47] LABS: BASOPHILS % (AUTO) 0.2 % (0.0-3.0); EOSINOPHILS # (AUTO) 0.1 K/ul (0.0-0.7); EOSINOPHILS % (AUTO) 0.7 % (0.0-7.0); HEMATOCRIT 26.4 % (37.0-47.0); HEMOGLOBIN 8.1 g/dl (12.0-16.0); IMMATURE GRANULOCYTE # (AUTO) 0.1 (0.0-1.0); IMMATURE GRANULOCYTE % (AUTO) 0.4 % (0.0-5.0); LYMPHOCYTES # (AUTO) 0.2 K/uL (0.60-3.4); LYMPHOCYTES % (AUTO) 1.4 (10.0-50.0); MEAN CORPUSCULAR HEMOGLOBIN 27.2 pg (27.0-31.0); MEAN CORPUSCULAR HGB CONC 30.7 (31.8-35.4); MEAN CORPUSCULAR VOLUME 88.6 fl (81.0-99.0); MONOCYTES # (AUTO) 0.8 K/uL (0.4-2.0); MONOCYTES % (AUTO) 4.7 (0-10); NEUTROPHILS # (AUTO) 15.4 K/ul (2.0-6.9); NEUTROPHILS % (AUTO) 92.6 % (42.2-75.2); PLATELET COUNT 235 10^3/uL (140-440); RDW COEFFICIENT OF VARIATION 13.8 % (11.6-14.8); RED BLOOD COUNT 2.98 10^6/ul (4.20-5.40); WHITE BLOOD COUNT 16.64 K/ul (4.6-10.2)
[2024-09-06 00:49] LABS: BILIRUBIN,URINE Negative (NEGATIVE); CLARITY,URINE Clear (CLEAR); COLOR,URINE Yellow (YELLOW); GLUCOSE, URINE (UA) Negative (NEGATIVE); KETONES,URINE Negative (NEGATIVE); LEUKOCYTE ESTERASE ,URINE Negative (NEGATIVE); NITRITE,URINE Negative (NEGATIVE); PROTEIN,URINE 3+ (NEGATIVE); URINE, BLOOD Trace-intact (NEGATIVE); UROBILINOGEN,URINE 0.2 (0.2)
[2024-09-06 01:04] LABS: ALANINE AMINOTRANSFERASE 14.5 U/L (0-35); ALBUMIN 3.38 g/dL (3.5-5.0); ALKALINE PHOSPHATASE 60.2 U/L (53-141); ASPARTATE AMINO TRANSFERASE 25.6 U/L (14-36); BILIRUBIN,TOTAL 0.18 mg/dL (0.2-1.3); BLOOD UREA NITROGEN 43.7 mg/dL (7-17); CALCIUM 9.38 mg/dL (8.4-10.2); CARBON DIOXIDE 23.2 mmol/L (22-30.0); CHLORIDE 104.9 mmol/L (98-107); CREATININE 1.65 mg/dL (0.60-1.30); GLUCOSE 173.8 mg/dL (74-106); MAGNESIUM 2.19 mg/dL (1.6-2.3); TOTAL PROTEIN 6.93 g/dL (6.3-8.2)
[2024-09-06] MEDS: MAXIPIME 2 GM/50 ML D5W 2 GM/50 ML BAG IV ONE (01:07)
[2024-09-06 01:12] LABS: POTASSIUM 4.73 mmol/L (3.5-5.1); SODIUM 134.8 mmol/L (134.5-145)
--- NOTE | 2024-09-06 01:13 | DI ---
EXAM: SINGLE VIEW OF THE CHEST. History: Fever, altered mental status. Comparison: Chest radiograph 08/27/2024 FINDINGS: Heart is mildly enlarged. Sternotomy wires. No consolidation. No pleural fluid and no p neumothorax. No acute osseous abnormalities. Atherosclerotic vascular calcifications. Impression: Mild cardiomegaly without acute disease and chest
[2024-09-06 01:15] LABS: MOLECULAR FLU A NEGATIVE BY NAAT (NEGATIVE); MOLECULAR FLU B NEGATIVE BY NAAT (NEGATIVE); RSV MOLECULAR NEGATIVE BY NAAT (NEGATIVE); SARS COV-2 RNA RAPID NAAT NEGATIVE (NEGATIVE)
[2024-09-06 01:16] LABS: MUCUS,URINE TRACE (NOT PRESENT); URINE RBC, MICROSCOPIC 0-2 (0-2); URINE WBC, MICROSCOPIC 0-2 (0-2)
[2024-09-06 01:17] LABS: PROTHROMBIN TIME 12.2 SEC (9.3-11.0)
--- NOTE | 2024-09-06 01:20 | CT ---
EXAM: CT HEAD WITHOUT CONTRAST TECHNIQUE: Noncontrast CT of the head with multiple reformats. HISTORY: Altered mental status. COMPARISON: 12/15/2023 FINDINGS: Ventricular size is normal. 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 Watershed. Infarct and encephalomalacia in the white matter on the right. Diffuse attenuation [place] ges compatible with chronic small vessel ischemia. No findings to indicate acute infarct. No evidence of intracranial hemorrhage. No midline shift or mass effect. No ectopia. Paranasal sinuses and ma stoid air cells are clear. Orbital contents are normal. The calvarium is intact. IMPRESSION: 1. Atrophy with extensive white matter attenuation compatible with chronic small vessel ischemia. 2. 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 3. No acute findings. All CT scans are performed using dose optimization techniques as appropriate to the performed exam an d includes at least one of the following: Automated exposure control, adjustment of the mA and/or kV according to size, and the use of iterative reconstruction technique. All CT scans are performed using dose optimization techniques as appropriate to the performed exam an d include at least one of the following: Automated exposure control, adjustment of the mA and/or kV according t o size, and the use of iterative reconstruction technique.
[2024-09-06] MEDS: VANCOMYCIN 1 GRAM/200 ML PREMIX 1 GM/200 ML BAG IV ONE (01:30)
[2024-09-06 01:40] LABS: ERYTHROCYTE SEDIMENTATION RATE 20 mm/hr (0-20)
--- NOTE | 2024-09-06 02:22 | ED.PDOC ---
General ED Provider: Dr. VARINDER THOMAS MD Chief Complaint: Fever Stated Complaint: 78-year-old female history of hyperlipidemia, cognitive communication deficit, prosthetic heart valve on Xarelto, presenting to the emergency department with reported fever. She is reported to be noncommunicative at baseline. She is not able to provide any history currently. History is limited. Attempted to call group home with more collateral. There is no report of a fall. Time Seen by Provider: 09/06/24 00:12 Information Source: EMT Primary Care Provider: MARILIA KING MD Nursing and Triage Documentation Reviewed and Agree: Yes What is Opioid Naive?: *Opioid Naive implies the patient is not already taking opioids or not chronically receiving opioids on a daily basis. *PRN dosing is not "usually" associated with tolerance. *Patients are at higher risk of over-sedation and aspiration. What is Opioid Tolerant?: *Opioid Tolerance implies less than the expected response to an opioid. *Acquired tolerance is defined by the patient taking 60mg of oral morphine daily (or equianalgesic dose of another opioid) for 1 week or more. *Often associated with chronic pain. *May take more than usual dose to achieve desired pain control. 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 - Type 2 diabetes mellitus without complications (ICD-10) Family History (Updated 09/06/24 @ 05:40 by FRANCISCO OLIVAS RN) Other No known health problems Social History Smoking and tobacco status: Never smoker Surgical History History of gastrointestinal surgery left lobectomy for liver cancer Z98.890 - Other specified postprocedural states (ICD-10) History of aortic valve replacement Z95.2 - Presence of prosthetic heart valve (ICD-10) Status post hysterectomy Z90.710 - Acquired absence of both cervix and uterus (ICD-10) History of section Z98.891 - History of uterine scar from previous surgery (ICD-10) Female Reproductive History Menstrual Hx Hysterectomy: No Hx Tubal Ligation: No Physical Exam Physical Exam Appearance: Reports No pain distress Ill-appearing: Mild Eyes: Reports [facility] and EOMI ENT: Reports Ears normal and Oropharynx normal; Denies Rhinorrhea Neck: Supple Respiratory: Reports Airway patent and Breath sounds clear Cardiovascular: Reports RRR, Pulses normal, No rub and No murmur GI/: Reports Soft and Nontender Musculoskeletal: Reports No calf tenderness Skin: Reports Warm and Dry Neurological: Reports Motor intact, Reflexes intact, Cranial nerves intact and Other ([facility] ED 3V1 and 5) Psychiatric: Reports Affect appropriate Course Course 09/06/24 05:16 09/06/24 05:16 Orders, Labs, Meds: Lab Review 09/06/24 09/06/24 00:25 00:30 WBC 16.64 H RBC 2.98 L Hgb 8.1 L Hct 26.4 L MCV 88.6 MCH 27.2 MCHC 30.7 L RDW Coeff of Silvana 13.8 Plt Count 235 Immature Gran % (Auto) 0.4 Neut % (Auto) 92.6 H Lymph % (Auto) 1.4 L [place] % (Auto) 4.7 Eos % (Auto) 0.7 Baso % (Auto) 0.2 Neut # (Auto) 15.4 H Lymph # (Auto) 0.2 L [place] # (Auto) 0.8 Eos # (Auto) 0.1 Baso # (Auto) 0.0 Immature Gran # (Auto) 0.1 ESR 20 PT 12.2 H INR 1.18 Sodium 134.8 Potassium 4.73 Chloride 104.9 Carbon Dioxide 23.2 Anion Gap 11.43 BUN 43.7 H Creatinine 1.65 H Estimated GFR (MDRD) 30.00 BUN/Creatinine Ratio 26.48 Glucose 173.8 H Lactic Acid 1.03 Calcium 9.38 Magnesium 2.19 Total Bilirubin 0.18 L AST 25.6 ALT 14.5 Alkaline Phosphatase 60.2 Total Protein 6.93 Albumin 3.38 L Globulin 3.55 Albumin/Globulin Ratio 0.95 Procalcitonin 0.08 Urine Color Yellow Urine Clarity Clear Urine pH 6.0 Ur Specific [place] 1.020 Urine Protein 3+ H Urine Glucose (UA) Negative Urine Ketones Negative Urine Blood Trace-intact H Urine Nitrite Negative Urine Bilirubin Negative Urine Urobilinogen 0.2 Ur Leukocyte Esterase Negative Urine Microscopic RBC 0-2 Urine Microscopic WBC 0-2 Ur Squamous Epith Cells 2-5 Urine Mucus Trace Influ A Molecular Assay Negative by naat Influ B Molecular Assay Negative by naat RSV Antigen Negative by naat SARS CoV-2 RNA Rapid REANNA Negative Orders Category Date Time Status OBSERVATION [[facility] PAT[facility] OBSERVATION] [facility] 03:46 Active (MONITORED BED) NPO REMINDER: IMAGING ONCE CARE 09/06/24 02:26 Completed TELEMETRY MONITORING TELE CARE 09/06/24 03:47 Active VITAL SIGNS Q4HR CARE 09/06/24 03:56 Active ED CLINICAL OPERATIONS CONSULTANT APPLIED .ONCE EMERGENCY 09/06/24 00:15 Active ED IV/MEDIPORT/POWERPORT .ONCE EMERGENCY 09/06/24 00:15 Active ED VITAL SIGNS .ONCE EMERGENCY 09/06/24 00:15 Active BLOOD CULTURE (ED ONLY) Stat LAB 09/06/24 00:16 Received C-REACTIVE PROTEIN Stat LAB 09/06/24 00:25 Received CBC W/ AUTO DIFF Stat LAB 09/06/24 00:25 Completed CBC W/ AUTO DIFF Timed LAB 09/06/24 05:16 Completed COMPREHENSIVE METABOLIC PANEL Stat LAB 09/06/24 00:25 Completed COMPREHENSIVE METABOLIC PANEL Timed LAB 09/06/24 05:16 Completed ESR Stat LAB 09/06/24 00:25 Completed FLU A/B MOLECULAR Stat LAB 09/06/24 00:30 Completed LACTIC ACID Stat LAB 09/06/24 00:25 Completed MAGNESIUM Stat LAB 09/06/24 00:25 Completed MRSA SCREEN Routine LAB 09/06/24 01:36 Received PROCALCITONIN Stat LAB 09/06/24 00:25 Completed PT WITH INR Stat LAB 09/06/24 00:25 Completed RSV Stat LAB 09/06/24 00:30 Completed SARS COV-2 RNA RAPID REANNA Stat LAB 09/06/24 00:30 Completed URINALYSIS C & S IF INDICATED Stat LAB 09/06/24 00:25 Completed Acetaminophen Meds 09/06/24 00:15 Discontinued 1,000 mg in 100 ml IV ONCE Cefepime 2 gm/D5w [Maxipime 2 gm/50 ml D5w] Meds 09/06/24 00:15 Discontinued 2 gm in 50 ml IV ONCE Iodixanol [Visipaque 320 mg/ml 100Ml] Meds 09/06/24 02:44 Discontinued 100 ml IVP ONCE ONE Sodium Chloride 0.9% [Sodium Chloride] 1,000 ml Meds 09/06/24 00:15 Discontinued IV BOLUS Vancomycin/Water For Inj (Peg) [Vancomycin 1 Gram/200 Meds 09/06/24 00:15 Discontinued ml Premix] 1 gm in 200 ml IV ONCE CHEST, 1V AP ONLY Stat RADS 09/06/24 00:[address] ABDOMEN/PELVIS W CONTRAST Stat RADS 09/06/24 02:[address] CHEST W/CONTRAST Stat RADS 09/06/24 02:[address] HEAD W/O CONTRAST Stat RADS 09/06/24 00:19 Completed Medications Discontinued Medications Generic Name Dose Route Start Last Admin Trade Name Freq PRN Reason Stop Dose Admin Sodium Chloride 1,000 mls @ 1,000 mls/hr 09/06/24 00:15 09/06/24 03:28 Sodium Chloride IV 09/06/24 01:14 Infused BOLUS ONE Infusion CEFEPIME 2 GM/D5W 2 gm in 50 mls @ 100 mls/hr 09/06/24 00:15 09/06/24 01:07 Maxipime 2 Gm/50 Ml D5w IV 09/06/24 00:44 100 mls/hr ONCE ONE Administration Acetaminophen 1,000 mg in 100 mls @ 400 mls/hr 09/06/24 00:15 09/06/24 00:32 Acetaminophen IV 09/06/24 00:29 400 mls/hr ONCE ONE Administration VANCOMYCIN/WATER FOR INJ (PEG) 1 gm in 200 mls @ 200 mls/hr 09/06/24 00:15 09/06/24 01:30 Vancomycin 1 Gram/200 Ml Premix IV 09/06/24 01:14 200 mls/hr ONCE ONE Administration Iodixanol 100 ml 09/06/24 02:44 09/06/24 02:46 Iodixanol 320 Mg/Ml 100ml IVP 09/06/24 02:45 100 ml ONCE ONE Administration Vital Signs: Temp Pulse Resp BP Pulse Ox 09/06/24 02:37 99.4 F 71 15 137/60 95 09/06/24 00:03 101.2 F H 105 H 21 H 201/64 H 96 Discharge Plan Discharge Patient Disposition: ADMITTED INPATIENT Discharge Problem: Fever Did you review [place] [employer] for ALL controlled substances?: Not Applicable ED Provider: VARINDER THOMAS Condition: Stable Physician Progress Note: 78-year-old female communicative deficit, recently noted to be diagnosed with coronavirus on 1226 on RVP presenting to the emergency department with fever and rigors. Not much more information was given and patient is unable to provide history. She is febrile in the ED and hypertensive. She is satting well. There are no signs of focal infection that are appreciated. There is no cellulitis that is noted. There are no signs of trauma to the head. There is no abdominal tenderness. There is no signs of bruising or trauma to extremities. Given unable to obtain information we will get broad septic workup CBC CMP blood cultures, urinalysis, chest x-ray, will get CT head. Collateral obtained from group home. Patient is nonverbal at baseline however sometimes uses nonverbal communication. The patient has not used nonverbal communication for the past 2 days. She has been coughing for the past week or so. The main reason she was sent in is because she was noted to have tremors which seem new to her. She did have tremors when I first evaluated patient which seemed consistent with rigors to me. Currently heart rate 70s satting 95% blood pressure 135/57. Possible persistent versus new viral illness, versus bacteremia. Did have mild leukocytosis on lab work no gross abnormalities or findings. Discussed with hospitalist for admission however since I am unable to get clear history did send patient for CT chest abd pelvis to [facility] evaluate for source of infection Patient with cholelithiasis. No right upper quadrant tenderness, negative T. bili, LFTs normal. Not clinically consistent with cholecystitis. Subacute compression fracture which is old. Atelectasis versus pneumonia on CT scan. Patient was covered with antibiotics. Will admit.
[2024-09-06] MEDS: VISIPAQUE 320 MG/ML 100ML IVP ONE (02:46)
--- NOTE | 2024-09-06 03:27 | CT ---
EXAM: CT OF THE ABDOMEN PELVIS WITH CONTRAST History: Fever. Comparison: Chest CT done on the same day, CT abdomen pelvis 03/14/2024 Technique: Multiplanar CT images through the abdomen pelvis were obtained following administration o f IV contrast Findings: Bibasilar lung infiltrates. Heart is enlarged. Subacute appearing compression fracture i nvolving superior endplate at L3. Cholelithiasis. No liver or splenic lesions. Pancreas, adrenal glands and kidneys demonstrate no ac [place] findings. Stable small benign cyst of the left kidney. No bowel obstruction. No bladder wall t hickening. No perirectal inflammation. Uterus is not seen likely has been surgically removed. Mode rate colonic stool. No lymphadenopathy. No free air and no ascites. The appendix is not seen. The re are no secondary signs of appendicitis. Impression: 1. No acute intra-abdominal or pelvic process. 2. Bibasilar pneumonia. 3. Cholelithiasis. 4. Subacute compression fracture at L3 All CT scans are performed using dose optimization techniques as appropriate to the performed exam an d include at least one of the following: Automated exposure control, adjustment of the mA and/or kV according t o size, and the use of iterative reconstruction technique.
--- NOTE | 2024-09-06 03:37 | CT ---
EXAM: CT SCAN CHEST WITH CONTRAST HISTORY: Fever COMPARISON: CT scan chest 11/16/2017 FINDINGS: Postcontrast helical imaging was obtained through the thorax utilizing 5 mL collimation. Sagittal and coronal reconstructions were imaged reviewed There is 1.4 cm of thyroid nodule. The as cending aorta is ectatic measuring 3.4 cm. . Sternotomy wires and sternal plate and screw fixation i s noted the cardiac silhouette is enlarged without pericardial effusion.. Valvular calcification is noted. There is no hilar or mediastinal lymphadenopathy. There is bibasilar atelectasis and/or pneum onia. Calcified pleural plaques are noted. There are benign vomitus changes. Gallstones are noted within the gallbladder.. Bone windows reveals several chronic-appearing wedge compression deformities in the mid dorsal spine. IMPRESSION: Bibasilar atelectasis versus pneumonia.. Cardiomegaly without pericardial effusion. Calcified bilateral pleural plaques All CT scans are performed using dose optimization techniques as appropriate to the performed exam an d include at least one of the following: Automated exposure control, adjustment of the mA and/or kV according t o size, and the use of iterative reconstruction technique.
[2024-09-06 04:55] LABS: OCCULT BLOOD SAMPLE 1 NEGATIVE (NEGATIVE)
[2024-09-06 05:34] VITALS: BMI 22.9
[2024-09-06 05:35] LABS: BASOPHILS % (AUTO) 0.2 % (0.0-3.0); EOSINOPHILS # (AUTO) 0.1 K/ul (0.0-0.7); EOSINOPHILS % (AUTO) 0.3 % (0.0-7.0); HEMATOCRIT 23.6 % (37.0-47.0); HEMOGLOBIN 7.3 g/dl (12.0-16.0); IMMATURE GRANULOCYTE # (AUTO) 0.1 (0.0-1.0); IMMATURE GRANULOCYTE % (AUTO) 0.5 % (0.0-5.0); LYMPHOCYTES # (AUTO) 0.4 K/uL (0.60-3.4); LYMPHOCYTES % (AUTO) 2.4 (10.0-50.0); MEAN CORPUSCULAR HEMOGLOBIN 27.5 pg (27.0-31.0); MEAN CORPUSCULAR HGB CONC 30.9 (31.8-35.4); MEAN CORPUSCULAR VOLUME 89.1 fl (81.0-99.0); MONOCYTES % (AUTO) 5.5 (0-10); NEUTROPHILS # (AUTO) 16.8 K/ul (2.0-6.9); NEUTROPHILS % (AUTO) 91.1 % (42.2-75.2); PLATELET COUNT 218 10^3/uL (140-440); RDW COEFFICIENT OF VARIATION 14.1 % (11.6-14.8); RED BLOOD COUNT 2.65 10^6/ul (4.20-5.40); WHITE BLOOD COUNT 18.47 K/ul (4.6-10.2)
[2024-09-06 05:49] LABS: ALBUMIN 2.66 g/dL (3.5-5.0); ALKALINE PHOSPHATASE 46.3 U/L (53-141); ASPARTATE AMINO TRANSFERASE 20.5 U/L (14-36); BILIRUBIN,TOTAL 0.24 mg/dL (0.2-1.3); CALCIUM 8.79 mg/dL (8.4-10.2); CARBON DIOXIDE 21.5 mmol/L (22-30.0); CREATININE 1.5 mg/dL (0.60-1.30); GLUCOSE 139.6 mg/dL (74-106); TOTAL PROTEIN 5.81 g/dL (6.3-8.2)
[2024-09-06 06:25] LABS: POTASSIUM 4.4 mmol/L (3.5-5.1); SODIUM 135.7 mmol/L (134.5-145)
[2024-09-06 08:47] LABS: IRON 13.2 ug/dL (37-170)
[2024-09-06] MEDS ORDERED: VANCOMYCIN 1 GRAM/200 ML PREMIX 1 GM/200 ML BAG IV SCH (09:00)
--- NOTE | 2024-09-06 09:36 | PCM ---
Date of Service Date Seen by Provider: 09/06/24 Time Seen by Provider: 08:40 Admit Day/Time Admission Date: 09/06/24 Admission Time: 02:00 Reason for Admission Chief Complaint: FEVER Hospital Provider Hospital Provider: MAYE HOLLIDAY, [facility] Primary Care Physician: MARILIA KING MD History of Present Illness History of Present Illness: 78 yo non-verbal female with presented to the ER from local SNF with persistent fever and cough. Patient was diagnosed on 08/27 with Coronavirus Type OC43. Fever has persisted over the last week and patient has become lethargic. Patient is nonverbal, schizophrenic - unable to provide HPI. Found to have bibasilar pneumonia on CT scan. Not requiring oxygen at this time. Admitted to med/surg observation. Case Discussed With Case Discussed With: Patient's case was discussed with the ER Physicians, Dr. Serrato. 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 - Type 2 diabetes mellitus without complications (ICD-10) Surgical History History of gastrointestinal surgery left lobectomy for liver cancer Z98.890 - Other specified postprocedural states (ICD-10) History of aortic valve replacement Z95.2 - Presence of prosthetic heart valve (ICD-10) Status post hysterectomy Z90.710 - Acquired absence of both cervix and uterus (ICD-10) History of section Z98.891 - History of uterine scar from previous surgery (ICD-10) Family History Other No known health problems Social History Smoking and tobacco status: Never smoker Allergies Allergies Allergy/AdvReac Type Severity Reaction Status Date / Time influenza virus vaccine, AdvReac Unknown Verified 09/06/24 00:47 specific (Influenza Virus Vacc,Specific) Sulfa (Sulfonamide AdvReac Unknown Verified 09/06/24 00:47 Antibiotics) Influenza Virus Vacc,Specific AdvReac Unknown Uncoded 09/06/24 00:19 Sulfa (Sulfonamide AdvReac Unknown Uncoded 09/06/24 00:19 Antibiotics) Current Medications Home Medications rivaroxaban 15 mg tablet (Xarelto) 15 mg PO 1700 11/10/16 [History Confirmed 09/06/24 Last Taken 09/05/24] carvedilol 12.5 mg tablet 25 mg PO BID #60 tab-caps 06/29/17 [History Confirmed 09/06/24 Last Taken Unknown] amlodipine 5 mg tablet 5 mg PO DAILY ##30 03/20/18 [Rx Confirmed 09/06/24 Last Taken 09/05/24] lisinopril 10 mg tablet 10 mg PO DAILY #30 tabs 03/20/18 [Rx Confirmed 09/06/24 Last Taken Unknown] risperidone microspheres 50 mg/2 mL intramuscular susp,ext release (Risperdal Consta) 50 mg IM Q14D #2 vials 04/06/18 [History Confirmed 09/06/24 Last Taken 08/29/24] carboxymethylcellulose sodium 0.5 % eye drops (Refresh Tears) 2 drp BOTHEYES Q4HR PRN eye irritation/redness 12/15/23 [History Confirmed 09/06/24 Last Taken Unknown] ferrous sulfate 325 mg (65 mg iron) tablet (FeroSul) 325 mg PO BID 12/15/23 [History Confirmed 09/06/24 Last Taken Unknown] fluoxetine 40 mg capsule (Prozac) 40 mg PO DAILY 12/15/23 [History Confirmed 09/06/24 Last Taken Unknown] furosemide 20 mg tablet 20 mg PO QAM 12/15/23 [History Confirmed 09/06/24 Last Taken 09/05/24] linagliptin 5 mg tablet (Tradjenta) 5 mg PO DAILY 12/15/23 [History Confirmed 09/06/24 Last Taken 09/05/24] omeprazole 10 mg capsule,delayed release 10 mg PO DAILY 12/15/23 [History Confirmed 09/06/24 Last Taken 09/05/24] ondansetron HCl 4 mg tablet 4 mg PO Q8H PRN nausea/vomiting 12/15/23 [History Confirmed 09/06/24 Last Taken Unknown] potassium chloride 10 mEq capsule,extended release 10 meq PO DAILY 12/15/23 [History Confirmed 09/06/24 Last Taken 09/05/24] pravastatin 40 mg tablet 40 mg PO BEDTIME 12/15/23 [History Confirmed 09/06/24 Last Taken 09/05/24] triamcinolone acetonide 0.1 % topical cream 1 applic topical BID 12/15/23 [History Confirmed 09/06/24 Last Taken Unknown] acetaminophen 325 mg capsule 650 mg PO Q6H PRN fever or pain 09/06/24 [History Confirmed 09/06/24 Last Taken Unknown] arginine-vitamin C-vitamin E oral 4.5 gram-156 mg/9.2 gram powder pkt (Arginaid) 4.5 g PO BID 09/06/24 [History Confirmed 09/06/24 Last Taken 09/05/24] cholecalciferol (vitamin D3) 1,250 mcg (50,000 unit) capsule 1,250 mcg PO MONTHLY 09/06/24 [History Confirmed 09/06/24 Last Taken 08/28/24] divalproex 125 mg capsule,delayed release sprinkle 125 mg PO BID 09/06/24 [History Confirmed 09/06/24 Last Taken 09/05/24] lisinopril 40 mg tablet 40 mg PO DAILY 09/06/24 [History Confirmed 09/06/24 Last Taken 09/05/24] menthol 0.44 %-zinc oxide 20.6 % topical ointment (Calmoseptine) 1 applic topical Q8HR PRN skin irritation 09/06/24 [History Confirmed 09/06/24 Last Taken Unknown] Home Acetaminophen (Acetaminophen 325 Mg Tablet) 650 mg PO Q4H PRN PRN Reason: Mild Pain Albuterol/Ipratropium (Ipratropium/Albuterol Vial.Neb) 3 ml NEB RTQ6H [facility] Amlodipine Besylate (Amlodipine Besylate 5 Mg Tablet) 5 mg PO DAILY [facility] Ferrous Sulfate (Ferrous Sulfate 324 Mg Tablet.Dr) 324 mg PO BID [facility] Sodium Chloride (Sodium Chloride) 1,000 mls @ 75 mls/hr IV .[id number] [facility] Last Admin: 09/06/24 09:49 Dose: 75 mls/hr CEFEPIME 2 GM/D5W (Maxipime 2 Gm/50 Ml D5w) 2 gm in 50 mls @ 100 mls/hr IV Q12HR [facility] Stop: 09/09/24 10:59 VANCOMYCIN/WATER FOR INJ (PEG) (Vancomycin 750 Mg/150 Ml Bag) 750 mg in 150 mls @ 150 mls/hr IV DAILY [facility] Stop: 09/09/24 09:29 Last Admin: 09/06/24 09:50 Dose: 150 mls/hr Lisinopril (Lisinopril 40 Mg Tablet) 40 mg PO DAILY [facility] Non-Formulary Medication (Divalproex) 125 mg PO BID [facility] Non-Formulary Medication (Omeprazole) 10 mg PO DAILY [facility] Pravastatin Sodium (Pravastatin Sodium 40 Mg Tablet) 40 mg PO BEDTIME [facility] Rivaroxaban (Rivaroxaban 10 Mg Tablet) 15 mg PO 1700 [facility] Discontinued Medications Sodium Chloride (Sodium Chloride) 1,000 mls @ 1,000 mls/hr IV BOLUS ONE Stop: 09/06/24 01:14 Last Infusion: 09/06/24 03:28 Dose: Infused CEFEPIME 2 GM/D5W (Maxipime 2 Gm/50 Ml D5w) 2 gm in 50 mls @ 100 mls/hr IV ONCE ONE Stop: 09/06/24 00:44 Last Admin: 09/06/24 01:07 Dose: 100 mls/hr Acetaminophen (Acetaminophen) 1,000 mg in 100 mls @ 400 mls/hr IV ONCE ONE Stop: 09/06/24 00:29 Last Admin: 09/06/24 00:32 Dose: 400 mls/hr VANCOMYCIN/WATER FOR INJ (PEG) (Vancomycin 1 Gram/200 Ml Premix) 1 gm in 200 mls @ 200 mls/hr IV ONCE ONE Stop: 09/06/24 01:14 Last Admin: 09/06/24 01:30 Dose: 200 mls/hr Iron Sucrose 200 mg/ Sodium (Chloride) 110 mls @ 200 mls/hr IV ONCE ONE Stop: 09/06/24 09:54 Iodixanol (Iodixanol 320 Mg/Ml 100ml) 100 ml IVP ONCE ONE Stop: 09/06/24 02:45 Last Admin: 09/06/24 02:46 Dose: 100 ml Opioid Naive vs. Tolerant Does Patient Take Opioids?: No Is Patient Opioid Naive?: Yes What is Opioid Naive?: *Opioid Naive implies the patient is not already taking opioids or not chronically receiving opioids on a daily basis. *PRN dosing is not "usually" associated with tolerance. *Patients are at higher risk of over-sedation and aspiration. Is Patient Opioid Tolerant?: No What is Opioid Tolerant?: *Opioid Tolerance implies less than the expected response to an opioid. *Acquired tolerance is defined by the patient taking 60mg of oral morphine daily (or equianalgesic dose of another opioid) for 1 week or more. *Often associated with chronic pain. *May take more than usual dose to achieve desired pain control. Physical examination Most Recent Vital Signs: Most Recent Vital Signs Temperature 98.2 F 09/06/24 05:18 Temperature Source Temporal Artery Scan 09/06/24 05:18 Temperature Source Infrared 09/06/24 02:37 Pulse Rate 76 09/06/24 08:00 Respiratory Rate 18 09/06/24 08:00 Blood Pressure 137/60 09/06/24 02:37 Blood Pressure Right Arm 187/83 09/06/24 05:18 Blood Pressure Position Supine 09/06/24 05:18 O2 Sat by Pulse Oximetry 96 09/06/24 05:18 Oxygen Delivery Method Room Air 09/06/24 09:00 Height 5 ft 4 in 09/06/24 08:47 Weight 60.6 kg 09/06/24 08:47 Telemetry Type Remote Telemetry 09/06/24 07:00 Telemetry Heart Rate 58 L 09/06/24 07:00 Telemetry SPO2 97 09/06/24 07:00 EKG [place] Interval 0.28 H 09/06/24 07:00 EKG QRS Interval 0.08 09/06/24 07:00 Telemetry Strip Reading Sinus Bradycardia with 1st degree AVB 09/06/24 07:00 Appearance: Positive No Apparent Distress, Ill-Appearing and Thin Skin: Positive Warm and Good Turgor HEENT: Positive Normocephalic and PERRLA Neck: Positive Supple and Midline Trachea Chest/Lungs: Positive Symmetrical With Equal Breath Sounds, Rhonci and Other (diminished) Heart: Positive RRR and Pulses Normal GI/: Positive Soft, Nontender, Bowel Sounds Normal and No Distention Musculoskeletal: Positive Not Examined Extremities: Positive Intact Peripheral Pulses and Stable Joints Without Laxity Neurological: Positive Sensation Intact, Motor intact and Other (lethargic, nonverbal, able to follow basic commands) Labs This Visit Labs This Visit: Labs This Visit 09/06/24 09/06/24 09/06/24 00:25 00:30 04:44 WBC 16.64 H RBC 2.98 L Hgb 8.1 L Hct 26.4 L MCV 88.6 MCH 27.2 MCHC 30.7 L RDW Coeff of Silvana 13.8 Plt Count 235 Immature Gran % (Auto) 0.4 Neut % (Auto) 92.6 H Lymph % (Auto) 1.4 L Whitley % (Auto) 4.7 Eos % (Auto) 0.7 Baso % (Auto) 0.2 Neut # (Auto) 15.4 H Lymph # (Auto) 0.2 L Whitley # (Auto) 0.8 Eos # (Auto) 0.1 Baso # (Auto) 0.0 Immature Gran # (Auto) 0.1 ESR 20 PT 12.2 H INR 1.18 Sodium 134.8 Potassium 4.73 Chloride 104.9 Carbon Dioxide 23.2 Anion Gap 11.43 BUN 43.7 H Creatinine 1.65 H Estimated GFR (MDRD) 30.00 BUN/Creatinine Ratio 26.48 Glucose 173.8 H Lactic Acid 1.03 Calcium 9.38 Magnesium 2.19 Iron TIBC % Saturation Ferritin Total Bilirubin 0.18 L AST 25.6 ALT 14.5 Alkaline Phosphatase 60.2 Total Protein 6.93 Albumin 3.38 L Globulin 3.55 Albumin/Globulin Ratio 0.95 Procalcitonin 0.08 Urine Color Yellow Urine Clarity Clear Urine pH 6.0 Ur Specific [place] 1.020 Urine Protein 3+ H Urine Glucose (UA) Negative Urine Ketones Negative Urine Blood Trace-intact H Urine Nitrite Negative Urine Bilirubin Negative Urine Urobilinogen 0.2 Ur Leukocyte Esterase Negative Urine Microscopic RBC 0-2 Urine Microscopic WBC 0-2 Ur Squamous Epith Cells 2-5 Urine Mucus Trace Stl Occult Blood (IFOB) Negative Influ A Molecular Assay Negative by naat Influ B Molecular Assay Negative by naat RSV Antigen Negative by naat SARS CoV-2 RNA Rapid REANNA Negative 09/06/24 05:16 WBC 18.47 H RBC 2.65 L Hgb 7.3 L Hct 23.6 L MCV 89.1 MCH 27.5 MCHC 30.9 L RDW Coeff of Silvana 14.1 Plt Count 218 Immature Gran % (Auto) 0.5 Neut % (Auto) 91.1 H Lymph % (Auto) 2.4 L Whitley % (Auto) 5.5 Eos % (Auto) 0.3 Baso % (Auto) 0.2 Neut # (Auto) 16.8 H Lymph # (Auto) 0.4 L Whitley # (Auto) 1.0 Eos # (Auto) 0.1 Baso # (Auto) 0.0 Immature Gran # (Auto) 0.1 ESR PT INR Sodium 135.7 Potassium 4.40 Chloride 110.0 H Carbon Dioxide 21.5 L Anion Gap 8.60 BUN 39.0 H Creatinine 1.50 H Estimated GFR (MDRD) 33.00 BUN/Creatinine Ratio 26.00 Glucose 139.6 H Lactic Acid Calcium 8.79 Magnesium Iron 13.2 L TIBC 218 L % Saturation 6 Ferritin 29.60 Total Bilirubin 0.24 AST 20.5 ALT 13.0 Alkaline Phosphatase 46.3 L Total Protein 5.81 L Albumin 2.66 L Globulin 3.15 Albumin/Globulin Ratio 0.84 Procalcitonin 0.34 H Urine Color Urine Clarity Urine pH Ur Specific [place] Urine Protein Urine Glucose (UA) Urine Ketones Urine Blood Urine Nitrite Urine Bilirubin Urine Urobilinogen Ur Leukocyte Esterase Urine Microscopic RBC Urine Microscopic WBC Ur Squamous Epith Cells Urine Mucus Stl Occult Blood (IFOB) Influ A Molecular Assay Influ B Molecular Assay RSV Antigen SARS CoV-2 RNA Rapid REANNA Imaging Imaging: EXAM: SINGLE VIEW OF THE CHEST. FINDINGS: Heart is mildly enlarged. Sternotomy wires. No consolidation. No pleural fluid and no pneumothorax. No acute osseous abnormalities. Atherosclerotic vascular calcifications. Impression: Mild cardiomegaly without acute disease and chest EXAM: CT SCAN CHEST WITH CONTRAST FINDINGS: Postcontrast helical imaging was obtained through the thorax utilizing 5 mL collimation. Sagittal and coronal reconstructions were imaged reviewed There is 1.4 cm of thyroid nodule. The ascending aorta is ectatic measuring 3.4 cm. . Sternotomy wires and sternal plate and screw fixation is noted the cardiac silhouette is enlarged without pericardial effusion.. Valvular calcification is noted. There is no hilar or mediastinal lymphadenopathy. There is bibasilar atelectasis and/or pneumonia. Calcified pleural plaques are noted. There are benign vomitus changes. Gallstones are noted within the gallbladder.. Bone windows reveals several chronic-appearing wedge compression deformities in the mid dorsal spine. IMPRESSION: Bibasilar atelectasis versus pneumonia.. Cardiomegaly without pericardial effusion. Calcified bilateral pleural plaques EXAM: CT OF THE ABDOMEN PELVIS WITH CONTRAST Findings: Bibasilar lung infiltrates. Heart is enlarged. Subacute appearing compression fracture involving superior endplate at L3. Cholelithiasis. No liver or splenic lesions. Pancreas, adrenal glands and kidneys demonstrate no acute findings. Stable small benign cyst of the left kidney. No bowel obstruction. No bladder wall thickening. No perirectal inflammation. Uterus is not seen likely has been surgically removed. Moderate colonic stool. No lymphadenopathy. No free air and no ascites. The appendix is not seen. There are no secondary signs of appendicitis. Impression: 1. No acute intra-abdominal or pelvic process. 2. Bibasilar pneumonia. 3. Cholelithiasis. 4. Subacute compression fracture at L3 EXAM: CT HEAD WITHOUT CONTRAST FINDINGS: Ventricular size is normal. 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 Watershed. Infarct and encephalomalacia in the white matter on the right. Diffuse attenuation changes compatible with chronic small vessel ischemia. No findings to indicate acute infarct. No evidence of intracranial hemorrhage. No midline shift or mass effect. No ectopia. Paranasal sinuses and mastoid air cells are clear. Orbital contents are normal. The calvarium is intact. IMPRESSION: 1. Atrophy with extensive white matter attenuation compatible with chronic small vessel ischemia. 2. 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 3. No acute findings. Review Statement Review Statement: I have independently reviewed and interpreted the labs/EKGs/imaging that were ordered by the ER provider. I have reviewed all outside records that are available currently in our EMR including imaging/notes/labs from previous visits. Plan Plan: 1. Sepsis in setting of Bibasilar Pneumonia - blood cultures pending, vancomycin and cefepime 2. Bibasilar Pneumonia - vancomycin and cefepime, nebs, checking legionella, strep pneumo, mrsa, and sputum culture 3. Acute on Chronic Iron Deficiency Anemia - has documented lows on previous admission, occult stool negative, iron studies completed and low, fenofer 200 mg ordered, resume iron 325 bid PO 4. Hypertension - chronic, continue home medications 5. Schizophrenia - chronic, continue home medications DVT Prophylaxis: Xarelto Time Spent: Greater than 80 minutes spent with patient, 50% of the time spent with this patient was devoted to counseling and coordination of care. [facility] minutes spent discussing advance care planning. Disposition: Admit to: Med/surg observation -> Admit to inpatient today due to likely need for >48hours of care Full Code Discussed Plan of Care with Dr. Malik King. Medications Medication Orders: Medications Ordered Category Date Time Status Acetaminophen [Tylenol] Meds 09/06/24 08:27 Active 650 mg PO Q4H PRN Cefepime 2 gm/D5w [Maxipime 2 gm/50 ml D5w] Meds 09/06/24 11:00 Active 2 gm in 50 ml IV Q12HR Ipratropium/Albuterol Neb [Duoneb] Meds 09/06/24 12:00 Active 3 ml NEB RTQ6H Iron Sucrose Complex [Venofer] 200 mg Meds 09/06/24 09:22 Active 0.9 % Sodium Chloride [Sodium Chloride 100Ml] 100 ml IV ONCE Sodium Chloride 0.9% [Sodium Chloride] 1,000 ml Meds 09/06/24 08:30 Active IV 75 mls/hr Vancomycin/Water For Inj (Peg) [Vancomycin 750 mg/150 Meds 09/06/24 09:30 Active ml Bag] 750 mg in 150 ml IV DAILY
[2024-09-06] MEDS: SODIUM CHLORIDE 1,000 ML IV SCH (09:49)
[2024-09-06] MEDS: VANCOMYCIN 750 MG/150 ML BAG 750 MG/150 ML BAG IV SCH (09:50)
[2024-09-06] MEDS: VENOFER IV ONE (11:06)
[2024-09-06] MEDS: SODIUM CHLORIDE IV ONE (11:06)
[2024-09-06] MEDS: DUONEB NEB SCH (11:20)
[2024-09-06] MEDS: DIVALPROEX 125 MG PO SCH (11:32)
[2024-09-06] MEDS: MAXIPIME 2 GM/50 ML D5W 2 GM/50 ML BAG IV SCH (11:41)
[2024-09-06] MEDS: ZESTRIL PO SCH (11:41)
[2024-09-06] MEDS: NORVASC PO SCH (11:41)
--- NOTE | 2024-09-06 11:45 | RS.BEDDYS ---
Subjective Date of Evaluation: 09/06/24 Date of Onset/Injury/Change in Status: 09/06/24 Diagnosis: pneumonia, altered mental status Current Level of Function: Patient resides in retirement. Current Diet: [employer] ordered minced and moist with thin liquids Current Subjective/complaints:: Decreased alertness, some coughing reported General Information General Denture Type: Not Applicable (partial dentition) Ability to Follow Directions: Fair Is Patient able to Repeat Directions?: No (patient is nonverbal) Oral Expression Ability: Unable Oral-Facial Assessment Lingual Protrusion: Normal Comments: patient had some difficulty with oral movements and manipulation of bolus Comments/Additional Info. Comments:: patient will follow some simple commands but unable to perform a OME to fully assess oral structures and function Food Presentation Solids Food Presented: Chopped (sausage) Behaviors/Comments: significant coughing noted, difficulty with oral manipulation Food Presented: Pureed (gravy, eggs, yogart, oatmeal) Behaviors/Comments: patient able to manipulate bolus and swallow with no difficulty Liquids Liquid Presented: Thin (water, milk, juice) Behaviors/Comments: presented via straw with small drinks given some burping noted after swallow tolerated with min difficulty Recommendations: Dysphagia Evaluation Dietary Recommendations: Puree and Thin Comments:: meds crushed in applesauce/pudding small bites/sips Dysphagia Swallow Precautions/Strategies: Sitting Upright (90 deg) (30 mins after meal), Liquids from Straw, Small Bites and Sips and Alternate Liquids/Solids Summary Dysphagia Evaluation Summary: Patient was administered a bedside dysphagia evaluation. She was seated upright and stimulated to arouse her from sleep. She required some prompted to maintain alertness. Further Therapy Indicated?: Yes Rehab Potential: Good Short Term Goals Problem: dyspahgia Goal #1: tolerate puree diet with thin liquids Goal to be met by: 09/14/24 [employer] Goals Problem: dysphagia Goal #1: tolerate least restrictive diet to maintain nutrition/hydration Goal to be met by: 09/14/24 Plan Duration of Treatment: 1 Week Frequency of Treatment: 1-2 X day, as tolerated Anticipated Discharge Destination: [facility] Treatment Code (1) Dysphagia: Code(s): R13.10 - Dysphagia, unspecified
[2024-09-06] MEDS: FERROUS SULFATE PO SCH (16:30)
[2024-09-06] MEDS: XARELTO PO SCH (16:30)
[2024-09-06] MEDS: PRAVACHOL PO SCH (20:17)
[2024-09-06] MEDS: TYLENOL PO PRN (22:21)
[2024-09-06] MEDS: ATIVAN IVP ONE (23:21)
[2024-09-07 05:04] LABS: BASOPHILS % (AUTO) 0.5 % (0.0-3.0); EOSINOPHILS # (AUTO) 0.4 K/ul (0.0-0.7); HEMATOCRIT 22.6 % (37.0-47.0); IMMATURE GRANULOCYTE % (AUTO) 0.4 % (0.0-5.0); LYMPHOCYTES # (AUTO) 0.4 K/uL (0.60-3.4); LYMPHOCYTES % (AUTO) 4.9 (10.0-50.0); MEAN CORPUSCULAR HGB CONC 29.6 (31.8-35.4); MEAN CORPUSCULAR VOLUME 91.1 fl (81.0-99.0); MONOCYTES # (AUTO) 0.4 K/uL (0.4-2.0); MONOCYTES % (AUTO) 5.4 (0-10); NEUTROPHILS # (AUTO) 6.4 K/ul (2.0-6.9); NEUTROPHILS % (AUTO) 83.8 % (42.2-75.2); PLATELET COUNT 182 10^3/uL (140-440); RDW COEFFICIENT OF VARIATION 14.2 % (11.6-14.8); RED BLOOD COUNT 2.48 10^6/ul (4.20-5.40)
[2024-09-07 05:18] LABS: ALBUMIN 2.3 g/dL (3.5-5.0); BILIRUBIN,TOTAL 0.2 mg/dL (0.2-1.3); CALCIUM 8.6 mg/dL (8.4-10.2); CREATININE 1.6 mg/dL (0.60-1.30); POTASSIUM 4.1 mmol/L (3.5-5.1); TOTAL PROTEIN 5.2 g/dL (6.3-8.2)
[2024-09-07 05:58] LABS: HEMOGLOBIN 6.7 g/dl (12.0-16.0)
[2024-09-07 06:00] LABS: ANISOCYTOSIS OCCASIONAL (NOT PRESENT); HYPOCHROMASIA OCCASIONAL (NOT PRESENT)
--- NOTE | 2024-09-07 08:19 | PCM.PROG ---
Date/Time Seen Date Seen by Provider: 09/07/24 Time Seen by Provider: 07:30 Provider Provider: MAYE HOLLIDAY, [facility] Chief Complaint Chief Complaint: FEVER Subjective Subjective: Puling lines and picking last night with attempts to get out of bed. Required dose of ativan Objective Appearance: Positive No Apparent Distress, Ill-Appearing and Thin Chest/Lungs: Positive Symmetrical With Equal Breath Sounds, Rhonci and Other (crackles in lung bases) Heart: Positive RRR and Pulses Normal GI/: Positive Soft, Nontender and No Distention Musculoskeletal: Positive Not Examined Neurological: Positive Other (lethargic, not responding to stimuli at this time) Vital Signs Vital Signs: Vital Signs: Last 24 Hours 09/06/24 08:47 09/06/24 09:00 09/06/24 09:38 Temperature 98.0 F Temperature Source Temporal Artery Scan Pulse Rate 60 Respiratory Rate 16 Blood Pressure 147/68 H Blood Pressure Mean 94 Blood Pressure Location Left Arm Blood Pressure Position Supine O2 Sat by Pulse Oximetry 96 Oxygen Delivery Method Room Air Room Air Height 5 ft 4 in Weight 60.6 kg Telemetry Type Telemetry Monitoring Telemetry Heart Rate Telemetry SPO2 EKG NM Interval EKG QRS Interval Telemetry Strip Reading 09/06/24 13:00 09/06/24 14:00 09/06/24 19:00 Temperature 98.4 F Temperature Source Temporal Artery Scan Pulse Rate 57 L Respiratory Rate 16 Blood Pressure 150/70 H Blood Pressure Mean 96 Blood Pressure Location Blood Pressure Position O2 Sat by Pulse Oximetry 97 Oxygen Delivery Method Room Air Height Weight Telemetry Type Remote Telemetry Remote Telemetry Telemetry Monitoring Continues Telemetry Heart Rate 64 72 Telemetry SPO2 97 97 EKG NM Interval 0.28 H 0.17 EKG QRS Interval 0.08 0.14 H Telemetry Strip Reading SR with 1st degree AVB SINUS RHYTHM W/ BBB 09/06/24 19:15 09/06/24 19:15 09/06/24 21:22 Temperature 99.2 F 99.6 F Temperature Source Temporal Artery Scan Tympanic Pulse Rate 83 Respiratory Rate 20 17 Blood Pressure 158/76 H Blood Pressure Mean 103 Blood Pressure Location Right Arm Blood Pressure Position Supine O2 Sat by Pulse Oximetry 96 Oxygen Delivery Method Room Air Room Air Room Air Height Weight Telemetry Type Telemetry Monitoring Telemetry Heart Rate Telemetry SPO2 EKG NM Interval EKG QRS Interval Telemetry Strip Reading 09/06/24 23:34 09/07/24 01:00 09/07/24 01:30 Temperature 99.9 F 98.4 F Temperature Source Temporal Artery Scan Temporal Artery Scan Pulse Rate Respiratory Rate Blood Pressure Blood Pressure Mean Blood Pressure Location Blood Pressure Position O2 Sat by Pulse Oximetry 96 97 Oxygen Delivery Method Room Air Room Air Height Weight Telemetry Type Remote Telemetry Telemetry Monitoring Continues Telemetry Heart Rate 74 Telemetry SPO2 95 EKG NM Interval 0.24 H EKG QRS Interval 0.12 H Telemetry Strip Reading SINUS KENNY W/ 1ST AVB/BBB 09/07/24 05:33 09/07/24 07:00 Temperature 98.5 F Temperature Source Tympanic Pulse Rate 66 Respiratory Rate 15 Blood Pressure 171/78 H Blood Pressure Mean 109 Blood Pressure Location Right Arm Blood Pressure Position Supine O2 Sat by Pulse Oximetry 98 Oxygen Delivery Method Room Air Height Weight Telemetry Type Remote Telemetry Telemetry Monitoring Continues Telemetry Heart Rate 60 Telemetry SPO2 94 EKG NM Interval 0.28 H EKG QRS Interval 0.12 H Telemetry Strip Reading SR W/ 1ST DEGREE AVB AND BBB Lab Results Lab Results: Lab Results: Last 24 Hours 09/07/24 09/07/24 09/06/24 06:48 04:41 05:16 WBC 7.60 D RBC 2.48 L Hgb 6.7 L* Hct 22.6 L MCV 91.1 MCH 27.0 MCHC 29.6 L RDW Coeff of Silvana 14.2 Plt Count 182 Immature Gran % (Auto) 0.4 Neut % (Auto) 83.8 H Lymph % (Auto) 4.9 L [place] % (Auto) 5.4 Eos % (Auto) 5.0 Baso % (Auto) 0.5 Neut # (Auto) 6.4 Lymph # (Auto) 0.4 L [place] # (Auto) 0.4 Eos # (Auto) 0.4 Baso # (Auto) 0.0 Immature Gran # (Auto) 0.0 Hypochromasia Occasional Anisocytosis Occasional Sodium 136.0 Potassium 4.10 Chloride 112.0 H Carbon Dioxide 23.0 Anion Gap 5.10 BUN 39.0 H Creatinine 1.60 H Estimated GFR (MDRD) 31.00 BUN/Creatinine Ratio 24.37 Glucose 97.0 Calcium 8.60 Iron 13.2 L TIBC 218 L % Saturation 6 Ferritin 29.60 Total Bilirubin 0.20 AST 20.0 ALT 12.0 Alkaline Phosphatase 49.0 L C-Reactive Prot, Quant Total Protein 5.20 L Albumin 2.30 L Globulin 2.90 Albumin/Globulin Ratio 0.79 Procalcitonin 0.34 H Blood Type A NEGATIVE Crossmatch (AHG) See Detail 09/06/24 00:25 WBC RBC Hgb Hct MCV MCH MCHC RDW Coeff of Silvana Plt Count Immature Gran % (Auto) Neut % (Auto) Lymph % (Auto) [place] % (Auto) Eos % (Auto) Baso % (Auto) Neut # (Auto) Lymph # (Auto) [place] # (Auto) Eos # (Auto) Baso # (Auto) Immature Gran # (Auto) Hypochromasia Anisocytosis Sodium Potassium Chloride Carbon Dioxide Anion Gap BUN Creatinine Estimated GFR (MDRD) BUN/Creatinine Ratio Glucose Calcium Iron TIBC % Saturation Ferritin Total Bilirubin AST ALT Alkaline Phosphatase C-Reactive Prot, Quant 2 Total Protein Albumin Globulin Albumin/Globulin Ratio Procalcitonin Blood Type Crossmatch (AHG) Additional Comments Additional Comments: I have independently reviewed and interpreted the labs/EKGs/imaging ordered during this hospital stay. I have reviewed outside records that are available in our EMR that pertain to medical stay including imaging/notes/labs from previous visits. Active Medications Active Medications: Medications Generic Name Dose Route Start Last Admin Trade Name Freq PRN Reason Stop Dose Admin Acetaminophen 650 mg 09/06/24 08:27 09/06/24 22:21 Acetaminophen 325 Mg Tablet PO 650 mg Q4H PRN Administration Mild Pain Albuterol/Ipratropium 3 ml 09/06/24 12:00 09/07/24 05:17 Ipratropium/Albuterol Vial.Neb NEB 3 ml RTQ6H DONOVAN Administration Amlodipine Besylate 5 mg 09/06/24 11:00 09/07/24 08:12 Amlodipine Besylate 5 Mg Tablet PO 5 mg DAILY DONOVAN Administration Ferrous Sulfate 324 mg 09/06/24 17:00 09/07/24 05:36 Ferrous Sulfate 324 Mg Tablet. PO 324 mg BIDAC2 DONOVAN Administration Sodium Chloride 1,000 mls @ 75 mls/hr 09/06/24 08:30 09/07/24 01:12 Sodium Chloride IV 75 mls/hr .[id number] DONOVAN Administration CEFEPIME 2 GM/D5W 2 gm in 50 mls @ 100 mls/hr 09/06/24 11:00 09/07/24 08:12 Maxipime 2 Gm/50 Ml D5w IV 09/09/24 10:59 100 mls/hr Q12HR DONOVAN Administration VANCOMYCIN/WATER FOR INJ (PEG) 750 mg in 150 mls @ 150 mls/hr 09/06/24 09:30 09/06/24 09:50 Vancomycin 750 Mg/150 Ml Bag IV 09/09/24 09:29 150 mls/hr DAILY DONOVAN Administration Lisinopril 40 mg 09/06/24 11:00 09/07/24 08:12 Lisinopril 40 Mg Tablet PO 40 mg DAILY DONOVAN Administration Non-Formulary Medication 125 mg 09/06/24 10:45 09/06/24 20:18 Divalproex PO 125 mg BID DONOVAN Administration Non-Formulary Medication 10 mg 09/06/24 10:45 09/07/24 05:36 Omeprazole PO 10 mg QDAC2 DONOVAN Administration Pravastatin Sodium 40 mg 09/06/24 21:00 09/06/24 20:17 Pravastatin Sodium 40 Mg Tablet PO 40 mg BEDTIME DONOVAN Administration Rivaroxaban 15 mg 09/06/24 17:00 09/06/24 16:30 Rivaroxaban 10 Mg Tablet PO 15 mg 1700 DONOVAN Administration Sodium Chloride 1 syr 09/06/24 21:00 09/07/24 05:55 0.9% Sodium Chloride 10 Ml Disp.Syrin IVF 1 syr Q8HR DONOVAN Administration Sodium Chloride 1 syr 09/06/24 17:49 0.9% Sodium Chloride 10 Ml Disp.Syrin IVF PRN PRN FLUSHING Assessment (1) Dysphagia: Status: Acute Code(s): R13.10 - Dysphagia, unspecified SNOMED Code(s): 98420135 Plan Plan: 1. Sepsis in setting of Bibasilar Pneumonia - blood cultures pending, vancomycin and cefepime 2. Bibasilar Pneumonia - vancomycin and cefepime, nebs, checking legionella, strep pneumo, mrsa, and sputum culture 3. Acute on Chronic Iron Deficiency Anemia - has documented lows on previous admission, occult stool negative, iron studies completed and low, fenofer 200 mg given yesterday, resume iron 325 bid PO, hemoglobin 6.7 today, type and cross 1 unit prbc 4. Hypertension - chronic, continue home medications 5. Schizophrenia - chronic, continue home medications DVT Prophylaxis: Leo Review Statement Review Statement: I have personally discussed and reviewed the patient's visit/currently labs/imaging/decision making with Dr. Mills, my supervising attending. Greater that 50 minutes spent with patient, 50% of the time spent with this patient was devoted to counseling and coordination of care.
--- NOTE | 2024-09-07 10:56 | RS.DYSPHTX ---
Dysphagia Treatment Note Date of Note: 09/07/24 Time of Treatment: 08:15 Subjective: Patient was seen for skilled speech therapy. She was lethargic but she aroused to participate in the session. She consumed most of her breakfast with max assist given. Total treatment time: 30 Short Term Goals Goal #1: tolerate puree diet with thin liquids Activity/Accuracy: Tolerated breakfast meal x1 cough [employer] Helper Goals Goal #1: tolerate least restrictive diet to maintain nutrition/hydration Assessment: Patient tolerated breakfast meal with cough x1. She drank liquids well through straw and ate most of her meal. Tolerated diet consistency well. Units Charged Swallowing Therapy: 1
[2024-09-07 14:12] LABS: HEMATOCRIT 24.5 % (37.0-47.0); HEMOGLOBIN 7.5 g/dl (12.0-16.0)
[2024-09-07] MEDS: ATIVAN IVP PRN (18:28)
[2024-09-07 21:22] VITALS: RESP 18
[2024-09-08 05:04] VITALS: BP 168/75; PULSE 77; TEMP 98.3
[2024-09-08 05:43] LABS: BASOPHILS % (AUTO) 0.4 % (0.0-3.0); EOSINOPHILS # (AUTO) 0.6 K/ul (0.0-0.7); EOSINOPHILS % (AUTO) 7.4 % (0.0-7.0); HEMATOCRIT 26.9 % (37.0-47.0); HEMOGLOBIN 8.2 g/dl (12.0-16.0); IMMATURE GRANULOCYTE % (AUTO) 0.2 % (0.0-5.0); LYMPHOCYTES # (AUTO) 0.4 K/uL (0.60-3.4); LYMPHOCYTES % (AUTO) 4.6 (10.0-50.0); MEAN CORPUSCULAR HEMOGLOBIN 27.2 pg (27.0-31.0); MEAN CORPUSCULAR HGB CONC 30.5 (31.8-35.4); MEAN CORPUSCULAR VOLUME 89.1 fl (81.0-99.0); MONOCYTES # (AUTO) 0.6 K/uL (0.4-2.0); MONOCYTES % (AUTO) 7.4 (0-10); NEUTROPHILS # (AUTO) 6.7 K/ul (2.0-6.9); PLATELET COUNT 148 10^3/uL (140-440); RDW COEFFICIENT OF VARIATION 14.8 % (11.6-14.8); RED BLOOD COUNT 3.02 10^6/ul (4.20-5.40); WHITE BLOOD COUNT 8.42 K/ul (4.6-10.2)
[2024-09-08 05:57] LABS: ALANINE AMINOTRANSFERASE 13.3 U/L (0-35); ALBUMIN 2.59 g/dL (3.5-5.0); ALKALINE PHOSPHATASE 48.2 U/L (53-141); ASPARTATE AMINO TRANSFERASE 25.6 U/L (14-36); BILIRUBIN,TOTAL 0.3 mg/dL (0.2-1.3); BLOOD UREA NITROGEN 38.3 mg/dL (7-17); CARBON DIOXIDE 20.2 mmol/L (22-30.0); CREATININE 1.45 mg/dL (0.60-1.30); GLUCOSE 141.1 mg/dL (74-106); POTASSIUM 4.47 mmol/L (3.5-5.1); SODIUM 138.2 mmol/L (134.5-145); TOTAL PROTEIN 5.73 g/dL (6.3-8.2)
--- NOTE | 2024-09-08 10:00 | DCSUM ---
Admission Date Admission Date: 09/06/24 Discharge Date Discharge Date: 09/08/24 Admission Diagnosis Admission Diagnosis: 1. Sepsis in setting of Bibasilar Pneumonia 2. Bibasilar Pneumonia 3. Acute on Chronic Iron Deficiency Anemia 4. Hypertension 5. Schizophrenia Discharge Diagnosis Discharge Diagnosis: 1. Sepsis in setting of Bibasilar Pneumonia -ruled out 2. Bibasilar Pneumonia - improving 3. Acute on Chronic Iron Deficiency Anemia - improving 4. Hypertension - chronic, stable 5. Schizophrenia - chronic stable Hospital Provider Hospital Provider: MAYE HOLLIDAY, [facility] Primary Care Physician Primary Care Physician: MARILIA KING MD Summary of History and Physical Summary of History and Physical: 78 yo non-verbal female with presented to the ER from local SNF with persistent fever and cough. Patient was diagnosed on 08/27 with Coronavirus Type OC43. Fever has persisted over the last week and patient has become lethargic. Patient is nonverbal, schizophrenic - unable to provide HPI. Found to have bibasilar pneumonia on CT scan. Not requiring oxygen at this time. Admitted to med/surg observation. Hospital Course Subjective: During stay patient was initially treated for possible sepsis in setting of bibasilar pneumonia with vancomycin and cefepime. Blood cultures were negative times for 48 hours. MRSA swab negative and stopped vancomycin. She did not require oxygen during stay. She was given nebulizer treatments. Legionella and strep pneumo are pending. Unable to obtain sputum culture. Patient was itching arms and trunk. Appears to have scabies like lesions. Bath provided and permethrin cream applied. Decadron given for itching. Patient was also anemic and hemoglobin dropped to 6.7. 1 unit of packed red blood cells was given yesterday. Hemoglobin is now above 8 today. Iron was low and Venofer 200 mg was given. Patient has history of iron deficiency anemia and takes p.o. iron supplementation twice a day. No changes to home medications. Rx for cefpodoxime 200 mg daily for 4 days. Dosing due to patient kidney function. Follow-up with PCP in 1 week Vital Signs: Most Recent Vital Signs Temperature 98.3 F 09/08/24 05:00 Temperature Source Temporal Artery Scan 09/08/24 05:00 Temperature Source Infrared 09/06/24 02:37 Pulse Rate 77 09/08/24 05:00 Respiratory Rate 18 09/08/24 05:00 Blood Pressure 168/75 H 09/08/24 05:00 Blood Pressure Mean 106 09/08/24 05:00 Blood Pressure Right Arm 187/83 09/06/24 05:18 Blood Pressure Location Right Arm 09/08/24 05:00 Blood Pressure Position Supine 09/08/24 05:00 O2 Sat by Pulse Oximetry 100 09/08/24 05:00 Oxygen Delivery Method Room Air 09/08/24 05:00 Height 5 ft 4 in 09/06/24 08:47 Weight 60.6 kg 09/06/24 08:47 Telemetry Type Remote Telemetry 09/08/24 00:52 Telemetry Monitoring Continues 09/08/24 00:52 Telemetry Heart Rate 93 09/08/24 00:52 Telemetry SPO2 98 09/07/24 13:00 EKG MD Interval 0.13 09/08/24 00:52 EKG QRS Interval 0.14 H 09/08/24 00:52 Telemetry Strip Reading sinus rhythm w/ bbb 09/08/24 00:52 Imaging: EXAM: CT SCAN CHEST WITH CONTRAST HISTORY: Fever COMPARISON: CT scan chest 11/16/2017 FINDINGS: Postcontrast helical imaging was obtained through the thorax utilizing 5 mL collimation. Sagittal and coronal reconstructions were imaged reviewed There is 1.4 cm of thyroid nodule. The ascending aorta is ectatic measuring 3.4 cm. . Sternotomy wires and sternal plate and screw fixation is noted the cardiac silhouette is enlarged without pericardial effusion.. Valvular calcification is noted. There is no hilar or mediastinal lymphadenopathy. There is bibasilar atelectasis and/or pneumonia. Calcified pleural plaques are noted. There are benign vomitus changes. Gallstones are noted within the gallbladder.. Bone windows reveals several chronic-appearing wedge compression deformities in the mid dorsal spine. IMPRESSION: Bibasilar atelectasis versus pneumonia.. Cardiomegaly without pericardial effusion. Calcified bilateral pleural plaques EXAM: SINGLE VIEW OF THE CHEST. History: Fever, altered mental status. Comparison: Chest radiograph 08/27/2024 FINDINGS: Heart is mildly enlarged. Sternotomy wires. No consolidation. No pleural fluid and no pneumothorax. No acute osseous abnormalities. Atherosclerotic vascular calcifications. Impression: Mild cardiomegaly without acute disease and chest Lab Results Last 24 Hours: 09/08/24 09/07/24 09/07/24 04:56 14:05 06:48 WBC 8.42 RBC 3.02 L Hgb 8.2 L 7.5 L Hct 26.9 L 24.5 L MCV 89.1 MCH 27.2 MCHC 30.5 L RDW Coeff of Silvana 14.8 Plt Count 148 Immature Gran % (Auto) 0.2 Neut % (Auto) 80.0 H Lymph % (Auto) 4.6 L [place] % (Auto) 7.4 Eos % (Auto) 7.4 H Baso % (Auto) 0.4 Neut # (Auto) 6.7 Lymph # (Auto) 0.4 L [place] # (Auto) 0.6 Eos # (Auto) 0.6 Baso # (Auto) 0.0 Immature Gran # (Auto) 0.0 Sodium 138.2 Potassium 4.47 Chloride 113.0 H Carbon Dioxide 20.2 L Anion Gap 9.47 BUN 38.3 H Creatinine 1.45 H Estimated GFR (MDRD) 35.00 BUN/Creatinine Ratio 26.41 Glucose 141.1 H Calcium 9.00 Iron TIBC % Saturation Total Bilirubin 0.30 AST 25.6 ALT 13.3 Alkaline Phosphatase 48.2 L Total Protein 5.73 L Albumin 2.59 L Globulin 3.14 Albumin/Globulin Ratio 0.82 Crossmatch ([facility]) See Detail 09/07/24 04:41 WBC RBC Hgb Hct MCV MCH MCHC RDW Coeff of Silvana Plt Count Immature Gran % (Auto) Neut % (Auto) Lymph % (Auto) [place] % (Auto) Eos % (Auto) Baso % (Auto) Neut # (Auto) Lymph # (Auto) [place] # (Auto) Eos # (Auto) Baso # (Auto) Immature Gran # (Auto) Sodium Potassium Chloride Carbon Dioxide Anion Gap BUN Creatinine Estimated GFR (MDRD) BUN/Creatinine Ratio Glucose Calcium Iron 62.0 TIBC 214 L % Saturation 29 Total Bilirubin AST ALT Alkaline Phosphatase Total Protein Albumin Globulin Albumin/Globulin Ratio Crossmatch ([facility]) Discharge Instructions Discharge Planning: Discharge Planning > 40 minutes If patient is discharged with left ventricular systolic dysfunction: no Discharged with a beta margarita? [] If no, why not? [] Discharged with an dylan/arb? [] If no, why not? [] Diagnosis: Community Acquired Pneumonia, Scabies Diet: Regular Activity: as tolerated Follow-up with PCP in 1 week. Medications: Cefpodozime daily x 4 days, Wash off permethrin tomorrow Discharge Medications: Medications at Discharge (Home Meds & RX) rivaroxaban 15 mg tablet (Xarelto) 15 mg PO 1700 11/10/16 carvedilol 12.5 mg tablet 25 mg PO BID #60 tab-caps 06/29/17 amlodipine 5 mg tablet 5 mg PO DAILY ##30 03/20/18 lisinopril 10 mg tablet 10 mg PO DAILY #30 tabs 03/20/18 risperidone microspheres 50 mg/2 mL intramuscular susp,ext release (Risperdal Consta) 50 mg IM Q14D #2 vials 04/06/18 carboxymethylcellulose sodium 0.5 % eye drops (Refresh Tears) 2 drp BOTHEYES Q4HR PRN eye irritation/redness 12/15/23 ferrous sulfate 325 mg (65 mg iron) tablet (FeroSul) 325 mg PO BID 12/15/23 fluoxetine 40 mg capsule (Prozac) 40 mg PO DAILY 12/15/23 furosemide 20 mg tablet 20 mg PO QAM 12/15/23 linagliptin 5 mg tablet (Tradjenta) 5 mg PO DAILY 12/15/23 omeprazole 10 mg capsule,delayed release 10 mg PO DAILY 12/15/23 ondansetron HCl 4 mg tablet 4 mg PO Q8H PRN nausea/vomiting 12/15/23 potassium chloride 10 mEq capsule,extended release 10 meq PO DAILY 12/15/23 pravastatin 40 mg tablet 40 mg PO BEDTIME 12/15/23 triamcinolone acetonide 0.1 % topical cream 1 applic topical BID 12/15/23 acetaminophen 325 mg capsule 650 mg PO Q6H PRN fever or pain 09/06/24 arginine-vitamin C-vitamin E oral 4.5 gram-156 mg/9.2 gram powder pkt (Arginaid) 4.5 g PO BID 09/06/24 cholecalciferol (vitamin D3) 1,250 mcg (50,000 unit) capsule 1,250 mcg PO MONTHLY 09/06/24 divalproex 125 mg capsule,delayed release sprinkle 125 mg PO BID 09/06/24 lisinopril 40 mg tablet 40 mg PO DAILY 09/06/24 menthol 0.44 %-zinc oxide 20.6 % topical ointment (Calmoseptine) 1 applic topical Q8HR PRN skin irritation 09/06/24 Discharge Plan Discharge Discharge Orders: Discharge Patient (ONCE); Ordered 09/08/24 Ordered By: HOLLIS ROBIN Activity Restrictions/Additional Instructions: Diagnosis: Community Acquired Pneumonia, Scabies Diet: Regular Activity: as tolerated Follow-up with PCP in 1 week. Medications: Cefpodozime daily x 4 days, Wash off permethrin tomorrow @ . Instructions: Scabies (ED), Community Acquired Pneumonia (GEN) Patient Disposition: TRANSFER [facility] Prescriptions: New cefpodoxime 200 mg tablet 200 mg PO DAILY 4 Days Qty: 4 0RF Rx Instructions: must administer with a meal/food Continued Xarelto 15 MG tablet 15 mg PO 1700 risperidone microspheres [Risperdal Consta] 50 MG/2 ML syringe 50 mg IM Q14D Qty: 2 amlodipine 5 MG tablet 5 mg PO DAILY Qty: 30 0RF Rx Instructions: GIVE ONE TABLET BY MOUTH DAILY ferrous sulfate [FeroSul] 325 mg (65 mg iron) tablet 325 mg PO BID omeprazole 10 mg capsule,delayed release(DR/EC) 10 mg PO DAILY pravastatin 40 mg tablet 40 mg PO BEDTIME carboxymethylcellulose sodium [Refresh Tears] 0.5 % drops 2 drp BOTHEYES Q4HR PRN (Reason: eye irritation/redness) Tradjenta 5 mg tablet 5 mg PO DAILY potassium chloride 10 MEQ capsule, extended release 10 meq PO DAILY furosemide 20 MG tablet 20 mg PO QAM ondansetron HCl 4 mg tablet 4 mg PO Q8H PRN (Reason: nausea/vomiting) Arginaid 4.5 gram-156 mg/9.2 gram powder in packet 4.5 g PO BID Rx Instructions: MIX IN 4-8 OZ FLUID divalproex 125 mg capsule, delayed rel sprinkle 125 mg PO BID cholecalciferol (vitamin D3) 1,250 mcg (50,000 unit) capsule 1,250 mcg PO MONTHLY lisinopril 40 mg tablet 40 mg PO DAILY acetaminophen 325 mg capsule 650 mg PO Q6H PRN (Reason: fever or pain) menthol-zinc oxide [Calmoseptine] 0.44-20.6 % ointment 1 applic topical Q8HR PRN (Reason: skin irritation) Rx Instructions: TO GROIN AREAS Discontinued carvedilol 12.5 MG tablet 25 mg PO BID Qty: 60 lisinopril 10 MG tablet 10 mg PO DAILY Qty: 30 0RF Rx Instructions: GIVE ONE TABLET BY MOUTH DAILY THIS IS A DECREASE IN THE PATIENT'S USUAL 40 MG PO BID (HOME MEDICATION) fluoxetine [Prozac] 40 mg capsule 40 mg PO DAILY triamcinolone acetonide 0.1 % cream 1 applic TOPICAL BID Did you review [place] [employer] for ALL controlled substances?: No Discussed opioids are addictive and Narcan is available by prescription or from pharmacy.: No Condition: Stable
[2024-09-08] MEDS: DECADRON IM ONE (10:17)
[2024-09-08] MEDS: CEFPODOXIME PROXETIL PO ONE (10:17)
[2024-09-08] MEDS: ELIMITE CREAM TP ONE (10:18)
[2024-09-08 16:12] LABS: SPECIMEN SOURCE Urine (.); STEP PNEUMO ORGANISM ID Not indicated. (.); STREP PNEUMO AG Positive (Negative); STREP PNEUMO BODY FLUID CULT Not indicated. (.)
== END 2024-09-08 12:05 | DRG 195 ==
LOC: MEDSURG B 00:02 → ED 00:02 → MEDSURG B 04:45
PROVIDERS: ADMIT Hospitalist; ATTEND Nurse Practitioner Family